=== PATIENT | male | born 1945 | race Hispanic/Latino ===

== ENCOUNTER 2016-12-29 21:15 | Inpatient (IN) | payer MEDICAID, SELFPAY ==
[2016-12-29 22:53] LABS: Sodium 139 mmol/L (135-148)
[2016-12-29 22:54] LABS: Mode SIMPLE MASK; Modified Allen's Test POSITIVE; Vent NO
[2016-12-29 22:58] LABS: PTT 30.6 SEC (22.9-36.1); Prothrombin Time 17.9 SEC (12.0-14.7)
[2016-12-29 23:07] LABS: Lactic Acid - Sepsis 1.1 mmol/L (0.5-2.2)
[2016-12-29 23:12] LABS: CK (CPK) 75 U/L (30-200); Lipase 13 U/L (8-78)
[2016-12-29] MEDS ORDERED: Piperacillin/Tazobactam 4.5 GM VIAL ONE (23:13)
[2016-12-29 23:16] LABS: Troponin I Less than 0.010 ng/mL (< 0.028)
[2016-12-29] MEDS ORDERED: Piperacillin/Tazobactam 4.5 GM in Sodium Chloride 0.9% 100 ML IVPB SCH (23:30)
[2016-12-29] MEDS ORDERED: Ondansetron HCl/PF 4 MG/2 ML Vial IVP PRN (23:32)
[2016-12-30] MEDS ORDERED: guaiFENesin 200 MG TAB PO PRN (00:01)
[2016-12-30] MEDS: Sodium Chloride 0.9% 1,000 ML IV SCH ×3 (01:09→18:29)
--- NOTE | 2016-12-30 01:15 | HP ---
DATE OF SERVICE: 12/29/2016 CHIEF COMPLAINT: Cough and fever. HISTORY OF PRESENT ILLNESS: A 71-year-old male with history of hypertension and hyperlipidemia who was transferred from [place] today for evaluation of cough and treatment of pneumonia. The pat ient stated that the last 4 days he has had cough and shortness of breath. The patient stated that today prior to going to the hospital, he had a fever and was having rigor and shaking chills. He qu it smoking 23 years ago. He denied any chest pain, no headache, dizziness, no loss of consciousness . His cough is productive of yellow sputum and had a little of nosebleed today. Prior to his trans carol, he had diagnostic study done which revealed that he has pneumonia in the right lobe of the lung . REVIEW OF SYSTEMS: Constitutional: Fever, chills, no night sweats or weight loss. Neurologic: No headache, dizziness or loss of consciousness. Respiratory system: Cough, productive of yellow spu annabella, and shortness of breath. Cardiovascular system: No chest pain. Gastrointestinal system: No nausea, vomiting, or diarrhea. Endocrine system: No polyuria, polydipsia, or polyphagia. Hematolo gy: No spontaneous bleeding or bruises. Genitourinary system: No dysuria, frequency or urgency. Musculoskeletal system: No joint swellings. The rest of review of system is negative. PAST MEDICAL HISTORY: Hypertension, hyperlipidemia, he has been taken of his antihypertensive medic ation by his PCP. PAST SURGICAL HISTORY: Has had no surgery. ALLERGIES: No known drug allergies. FAMILY HISTORY: Mother of [place] in her 70s. SOCIAL HISTORY: , quit smoking 23 years ago. Does not drink or use drugs. PHYSICAL EXAMINATION: GENERAL: Well-nourished, well-developed male in some respiratory distress. VITAL SIGNS: Blood pressure is 117/81, pulse of 102, respiratory rate of 18, temperature of 99.9, a nd saturating 89% to 91% on 4 liters. His T-max is actually 101.6, saturating 92% on 5 liters. HEENT: Normocephalic, atraumatic. Sclerae and conjunctivae are clear. Pupils are round, equal, an d reactive to light and accommodation. Extraocular muscles are intact. Oral mucous membrane is sobia st. No pharyngeal exudate. NECK: Supple. Trachea is midline. No jugular venous distention. LUNGS: Crackles at the bases and mid lobe of the right lung. Excursion symmetric. CARDIOVASCULAR: S1, S2 normal, no murmur. ABDOMEN: Soft, nontender. Bowel sounds are active. EXTREMITIES: With no pedal edema. Distal pulses are palpable. NEUROLOGIC: Alert, oriented x3, no cranial nerve deficit or focal deficit. LABORATORY DATA: Shows an ABG: pH of 7.4, pCO2 of 29, pO2 of 60. Coagulation profile: PT 17.9, I NR 1.4, PTT of 30.6. Cardiac troponin is less than 0.01 and BNP is 49. Hematology: White blood ce ll count is 15.8, hemoglobin 15.8, hematocrit 46, platelet of 247. Chemistry: Sodium 133, potassiu m 4.0, chloride 107, bicarbonate 17, BUN of 17, creatinine 1.32. LFTs normal. Chest x-ray: This c hronically an interstitial reticulonodular, parenchymal changes throughout both lungs, evidence of s ome extensive underlying chronic disease, multifocal with prominent interstitial and alveolar opacit y changes in the right mid lung zone compared to the prior study, raising concern for some degree of acute pneumonia or pneumonitis. ASSESSMENT: 1. Right mid lung pneumonia. 2. Acute hypoxic respiratory failure due to pneumonia. 3. Acute kidney injury. 4. History of hypertension. PLAN: 1. Admit the patient to medical/surgical floor. Start patient on IV antibiotics with ceftriaxone a nd azithromycin. 2. Start albuterol bronchodilator. 3. Supportive care with guaifenesin cough syrups and IV fluids with normal saline. Monitor BUN and creatinine with fluid resuscitation. Sent blood and respiratory cultures. Make adjustment to anti biotics as needed. 4. Deep venous thrombosis and gastrointestinal prophylaxis.
[2016-12-30] MEDS: cefTRIAXone\\ROCEPHIN 1 GM, Admixture Fee 1 EACH in Sodium Chloride 0.9% 100 ML IVPB SCH (01:33)
[2016-12-30] MEDS: Azithromycin 500 MG in Sodium Chloride 0.9% 250 ML 250 ML IVPB SCH (01:33)
[2016-12-30] MEDS ORDERED: guaiFENesin/Codeine Phosphate 200 mg/20 mg 10 ml UD Cup PO SCH (04:15)
[2016-12-30] MEDS: Enoxaparin Sodium 40 MG/0.4 ML SYRINGE SC SCH (06:12)
[2016-12-30 06:29] LABS: #Basophils 0.1 thou/uL (0.0-0.2); #Eosinphils 0.3 thou/uL (0.0-0.7); #Lymphocytes 2.3 thou/uL (1.20-3.40); #Monocytes 1.1 thou/uL (0.11-0.59); #Neutrophils 8.8 thou/uL (1.40-6.50); %Basophils 0.5 % (0.0-1.0); %Eosinophils 2.2 % (0.0-10.0); %Lymphocytes 18.6 % (21.0-51.0); %Monocytes 8.9 % (0.0-10.0); Hematocrit 40.9 % (42.0-52.0); Mean Platelet Volume 7.7 fL (7.4-10.4); Red Blood Cell (RBC) Count 4.39 mill/uL (4.70-6.10); White Blood Cell (WBC) Count 12.5 thou/uL (4.8-10.8)
[2016-12-30 07:02] LABS: Anion Gap 11 mmol/L (10-20); BUN (Urea Nitrogen) 14 mg/dL (8.4-25.7); Calc. Creatinine Clearance 75 mL/min (70-130); Calcium 7.9 mg/dL (7.8-10.44); Carbon Dioxide 21 mmol/L (23-31); Chloride 111 mmol/L (98-107); Estimated GFR-MDRD 69
--- NOTE | 2016-12-30 07:41 | PDOC.PN ---
- Subjective Encounter Start Date: 12/30/16 Encounter Start Time: 07:41 Subjective: and patient only speak arabic, he reports feeling better except -: cough and rt sided epistaxis - Objective MAR Reviewed: Yes Vital Signs & Weight: Vital Signs (12 hours) Temp Pulse Resp BP Pulse Ox 12/30/16 04:19 86 28 H 90 L 12/30/16 04:00 98.2 F 79 26 H 94/55 L 95 12/30/16 02:26 82 24 H 92 L 12/30/16 00:40 98.5 F 79 26 H 132/78 94 L 12/29/16 23:32 92 L Weight Weight 178 lb 8 oz I&O: 12/29/16 12/30/16 12/31/16 06:59 06:59 06:59 Intake Total 1130 Output Total 450 Balance 680 Result Diagrams: 12/30/16 06:04 12/30/16 06:04 Radiology Reviewed by me: Yes Phys Exam - Physical Examination Constitutional: NAD HEENT: PERRLA, moist MMs Neck: supple, full ROM diminshed throughout Cardiovascular: RRR Gastrointestinal: soft, non-tender Musculoskeletal: no edema Neurological: non-focal, moves all 4 limbs Psychiatric: normal affect, A&O x 3 Skin: no rash Dx/Plan (1) Community acquired pneumonia Code(s): J18.9 - PNEUMONIA, UNSPECIFIED ORGANISM Status: Acute (2) Hilar adenopathy Code(s): R59.0 - LOCALIZED ENLARGED LYMPH NODES Status: Chronic (3) Hypoxia Code(s): R09.02 - HYPOXEMIA Status: Chronic (4) Pulmonary nodules Status: Chronic - Plan cont current plan of care, continue antibiotics, respiratory therapy CHEST CT FROM SEPTEMBER C/W FIBROSIS, WILL OBTAIN PULMONARY CONSULT -: CONTINUE TX FOR CAP, FOLLOW RECCS PER PULMONARY. ANTITUSSIVES * .
[2016-12-30] MEDS: Benzonatate 100 MG CAP PO SCH ×3 (09:28→20:53)
[2016-12-30] MEDS: Famotidine 20 MG TAB PO SCH ×2 (09:28→20:53)
[2016-12-30] MEDS ORDERED: ISOVUE-370 76%-LOCM 1 ML ONE (14:00)
--- NOTE | 2016-12-30 14:02 | CON ---
DATE OF CONSULTATION: 12/30/2016 SERVICE: Pulmonary consultation. HISTORY OF PRESENT ILLNESS: This is a 71-year-old male, who came to the hospital with 4 da ys of increasing shortness of breath along with fever for the last 24 hours. He was seen in the [facility] in late September with an interstitial pneumonitis of some sort. He was discharged home and actual ly got better. He was supposed to come in for followup imaging, but never had that done. He has no previous history of lung disease to speak of. 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 PAST MEDICAL HISTORY: Hyperlipidemia and hypertension. PAST SURGICAL HISTORY: None. MEDICATIONS: See chart. SOCIAL HISTORY: Quit smoking many years ago. He does not consume alcohol. REVIEW OF SYSTEMS: Otherwise, negative. PHYSICAL EXAMINATION: VITAL SIGNS: O2 sat is in the low 90s on 50% oxygen, respiratory rate 18. HEENT: Unremarkable except for some nasal bleeding that has been present. Oropharynx is clear. NECK: No adenopathy, no JVD. He has some tenderness underneath the right mandibular area. LUNGS: He has inspiratory crackles from the midlung posteriorly down to the base. He also has crac kles heard anteriorly. CARDIOVASCULAR: S1, S2 regular, without murmur. ABDOMEN: Soft, nontender, and nondistended. EXTREMITIES: No clubbing, cyanosis, or edema. LABORATORY DATA: Notable for elevated total protein. His white blood cell count was not significan tly high. CT of the chest was reviewed. He has fairly extensive interstitial infiltrates bilateral ly with a great degree of honeycombing, but also some alveolar consolidation. He also has mediastin al lymphadenopathy. ASSESSMENT: Interstitial lung disease -- has progressed fairly markedly over the last 2 months. My differential diagnosis would be a rapidly progressive idiopathic pulmonary fibrosis, malignancy giv en the elevated total protein, or less likely an infection. RECOMMENDATIONS: 1. Continue antibiotics as you are doing. 2. Start IV steroids. 3. We will get Dr. Bhatia to see the patient tomorrow. I feel like the patient probably needs some type of biopsy procedure.
--- NOTE | 2016-12-30 18:26 | CT ---
CT ANGIO OF THE CHEST PERFORMED WITH INTRAVENOUS CONTRAST ENHANCEMENT WITH 3D RECONSTRUCTIONS: History: Shortness of breath. Comparison: 10-03-16 FINDINGS: There are severe emphysematous lung changes again demonstrated. Ground glass like opacity in both jose ng bases again demonstrated. These changes have progressed as compared to the prior examination, par ticularly worsening changes in the right lung, now extending more into the right upper lobe. There is marked adenopathy. This includes bilateral axillary lymphadenopathy as well as mediastinal and hilar lymphadenopathy. There is a mild overall increase in the size of the adenopathy by some of the prevascular nodes in the anterior mediastinum increased where they measured 8 mm on the prior e xam, they now measure in the 12 mm range. There has been increase in size of the subcarinal lymph no phil. There is good opacification. There is no CT evidence for pulmonary embolus. Thoracic aorta is normal in caliber. Visualized liver parenchyma shows no focal abnormalities. There is some peripancreatic and portal ly mph nodes and small lymph nodes in the gastric hepatic ligament regions, more numerous than typicall y seen. IMPRESSION: 1. No CT evidence for pulmonary embolus. 2. Ground glass opacity superimposed on a background of severe emphysematous change. These ground gl ass opacities worsened, particularly within the right lung. This would suggest the possibility that there is co-existent pneumonia or this could potentially be an atypical appearance of edema superimp osed on chronic lung change. POS: VANDANA
[2016-12-31] MEDS: cefTRIAXone\\ROCEPHIN 1 GM, Admixture Fee 1 EACH in Sodium Chloride 0.9% 100 ML IVPB SCH (00:36)
[2016-12-31] MEDS: Azithromycin 500 MG in Sodium Chloride 0.9% 250 ML 250 ML IVPB SCH (00:37)
[2016-12-31] MEDS: Sodium Chloride 0.9% 1,000 ML IV SCH ×2 (05:21→16:18)
[2016-12-31] MEDS: Enoxaparin Sodium 40 MG/0.4 ML SYRINGE SC SCH (05:21)
[2016-12-31 06:10] LABS: Hematocrit 38.9 % (42.0-52.0); Mean Platelet Volume 7.7 fL (7.4-10.4); Neutrophil 82 % (42-75); Reactive Lymphocytes 1 % (0-10); Red Blood Cell (RBC) Count 4.19 mill/uL (4.70-6.10); White Blood Cell (WBC) Count 9.4 thou/uL (4.8-10.8)
[2016-12-31] MEDS: Famotidine 20 MG TAB PO SCH ×2 (09:21→20:44)
[2016-12-31] MEDS: Benzonatate 100 MG CAP PO SCH ×3 (09:21→20:44)
--- NOTE | 2016-12-31 11:53 | PDOC.PN ---
- Subjective Encounter Start Date: 12/31/16 Encounter Start Time: 11:53 Subjective: in mosotho he reports feeling better. - Objective MAR Reviewed: Yes Vital Signs & Weight: Vital Signs (12 hours) Temp Pulse Resp BP BP BP Pulse Ox 12/31/16 10:57 94 L 12/31/16 10:54 61 20 94 L 12/31/16 07:15 97.2 F L 67 24 H 96/60 98 12/31/16 04:00 98 F 88 20 111/62 99 12/31/16 00:27 99 12/31/16 00:00 98 F 83 24 H 114/52 L 93 L Weight Weight 178 lb 8 oz I&O: 12/30/16 12/31/16 01/01/17 06:59 06:59 06:59 Intake Total 1130 Output Total 450 Balance 680 Result Diagrams: 12/31/16 04:57 12/30/16 06:04 Radiology Reviewed by me: Yes Phys Exam - Physical Examination Constitutional: NAD HEENT: PERRLA, moist MMs Neck: supple, full ROM crackles throughout Cardiovascular: RRR Gastrointestinal: soft, non-tender Musculoskeletal: no edema Neurological: non-focal, moves all 4 limbs Psychiatric: normal affect, A&O x 3 Skin: no rash Dx/Plan (1) Community acquired pneumonia Code(s): J18.9 - PNEUMONIA, UNSPECIFIED ORGANISM Status: Acute (2) Hilar adenopathy Code(s): R59.0 - LOCALIZED ENLARGED LYMPH NODES Status: Chronic (3) Hypoxia Code(s): R09.02 - HYPOXEMIA Status: Chronic (4) Pulmonary nodules Status: Chronic - Plan cont current plan of care, continue antibiotics, respiratory therapy, out of bed /ambulate case discussed with Features Editor. High Res CT or conservative mgt. -: Continue abx for CAP * .
--- NOTE | 2016-12-31 16:17 | PRG ---
DATE OF SERVICE: 12/31/2016 SUBJECTIVE: The patient is feeling better. PHYSICAL EXAMINATION: VITAL SIGNS: He is afebrile, heart rate 61, respiratory rate 20, oximetry is 94% on facemask O2, bl ood pressure 96/61. LUNGS: Remarkable for diffuse crackles. CARDIOVASCULAR: Regular rhythm. ABDOMEN: Soft. IMPRESSION: Interstitial lung disease ? usual interstitial pneumonitis, rapidly progressive. PLAN: High resolution CT. I have explained to the daughter by phone who will hopefully explain our plan about Mr. hSepherd. Biopsying areas that are suggestive of alveolitis might be an option to obta in a tissue diagnosis. Plan to discuss after the CT with Cardiothoracic Surgery.
--- NOTE | 2016-12-31 16:17 | CT ---
NONCONTRAST HIGH RESOLUTION CT THORAX: DATE: 12/31/16. HISTORY: Interstitial lung disease. COMPARISON: CT thorax on 10/03/16. FINDINGS: There are scattered areas of mixed central lobular and panlobular emphysematous changes greater in t he upper lobes and unchanged from prior exams. There are a few minimal areas of traction bronchiect asis present. There is significant motion artifact on both the supine and prone images. There are fluctuating dwaine und-glass densities seen noted on the lung bases which improve on prone imaging suggesting that the findings are likely attributable to atelectasis. There is a small nodular density seen within the r ight upper lobe adjacent to the pleura which was also seen on the prior study on 12/30/16 and may be related to a focal area of pleural thickening. This is also unchanged when compared to the study on 10/03/16. No subpleural lines or pleural effusion is seen. Again noted is increase in number of mediastinal l ymph nodes, some of which are enlarged, but these lymph nodes are increased in number. There is mil d increase in number of axillary lymph nodes as well. No other interval change. IMPRESSION: 1. Chronic obstructive pulmonary disease with minimal scattered areas of traction bronchiectasis. 2. Fluctuating ground-glass densities likely related to volume loss given improvement on prone imag ing compared to the supine images. 3. Mild chronic lung changes. 4. Lymphadenopathy better seen on CT angiogram of chest on 12/30/16. 5. Stable pleural-based nodular density along the minor fissure which may be related to focal area of nodular pleural thickening. POS: [facility]
[2016-12-31] MEDS: guaiFENesin/Codeine Phosphate 200 mg/20 mg 10 ml UD Cup PO PRN (20:44)
[2017-01-01] MEDS: cefTRIAXone\\ROCEPHIN 1 GM, Admixture Fee 1 EACH in Sodium Chloride 0.9% 100 ML IVPB SCH (01:06)
[2017-01-01] MEDS: Azithromycin 500 MG in Sodium Chloride 0.9% 250 ML 250 ML IVPB SCH (02:14)
[2017-01-01 05:51] LABS: #Lymphocytes 2.1 thou/uL (1.20-3.40); #Monocytes 0.8 thou/uL (0.11-0.59); #Neutrophils 14.2 thou/uL (1.40-6.50); %Basophils 0.2 % (0.0-1.0); %Eosinophils 0.1 % (0.0-10.0); %Lymphocytes 12.4 % (21.0-51.0); %Monocytes 4.7 % (0.0-10.0); Hematocrit 39.4 % (42.0-52.0); Mean Platelet Volume 7.7 fL (7.4-10.4); Red Blood Cell (RBC) Count 4.21 mill/uL (4.70-6.10); White Blood Cell (WBC) Count 17.2 thou/uL (4.8-10.8)
[2017-01-01] MEDS: guaiFENesin/Codeine Phosphate 200 mg/20 mg 10 ml UD Cup PO PRN ×2 (06:18→21:55)
[2017-01-01] MEDS: Benzonatate 100 MG CAP PO SCH ×3 (09:48→21:55)
[2017-01-01] MEDS: Famotidine 20 MG TAB PO SCH ×2 (09:48→21:55)
[2017-01-01] MEDS: Enoxaparin Sodium 40 MG/0.4 ML SYRINGE SC SCH (09:49)
--- NOTE | 2017-01-01 10:40 | PDOC.PN ---
- Subjective Encounter Start Date: 01/01/17 Encounter Start Time: 10:38 Subjective: feeling better, able to ambulate with o2 - Objective MAR Reviewed: Yes Vital Signs & Weight: Vital Signs (12 hours) Temp Pulse Resp BP Pulse Ox 01/01/17 08:00 96.3 F L 63 17 143/79 H 99 01/01/17 06:54 94 L 01/01/17 06:52 50 L 20 94 L 01/01/17 04:00 97.4 F L 62 18 127/79 97 01/01/17 03:36 100 01/01/17 02:18 60 20 96 01/01/17 00:00 97.7 F 68 18 109/65 97 Weight Weight 180 lb 1.6 oz I&O: 12/31/16 01/01/17 01/02/17 06:59 06:59 06:59 Intake Total 710 240 Output Total 500 Balance 210 240 Result Diagrams: 01/01/17 05:24 12/30/16 06:04 Phys Exam - Physical Examination Constitutional: NAD HEENT: PERRLA, moist MMs, sclera anicteric Neck: supple, full ROM crackles Cardiovascular: RRR Gastrointestinal: soft, non-tender Musculoskeletal: no edema, pulses present Neurological: moves all 4 limbs Psychiatric: normal affect, A&O x 3 Skin: no rash Dx/Plan (1) Community acquired pneumonia Code(s): J18.9 - PNEUMONIA, UNSPECIFIED ORGANISM Status: Acute (2) Hilar adenopathy Code(s): R59.0 - LOCALIZED ENLARGED LYMPH NODES Status: Chronic (3) Hypoxia Code(s): R09.02 - HYPOXEMIA Status: Chronic (4) Pulmonary nodules Status: Chronic - Plan cont current plan of care, continue antibiotics, respiratory therapy acute condition improved. Pulmonary to d/w surgeon and need for bx. * .
[2017-01-01] MEDS: Sodium Chloride 0.9% 1,000 ML IV SCH ×2 (12:12)
--- NOTE | 2017-01-01 21:31 | PRG ---
DATE OF SERVICE: 01/01/2017 SUBJECTIVE: Mr. Shepherd's high-res CT was reviewed. The interpretation is that this is consistent wi th COPD, but I reviewed the CAT scan twice and believe that there is alveolitis and not just atelect asis. I think a surgical lung biopsy is necessary in this situation given the 71 years of age. Cardiothoracic Surgery has been consulted. He says he is actually feeling better, which is similar to his hospitalization back in September. I discussed with CT Surgery as well.
--- NOTE | 2017-01-01 22:15 | CON ---
DATE OF CONSULTATION: 01/01/2017 HISTORY OF PRESENT ILLNESS: Mr. Shepherd is a 71-year-old gentleman, Slovak only speaking. He and his are here and I was able to communicate with them through his daughter on the telephone. He has a history of bilateral interstitial lung disease. He has been noncompliant with follow up with Dr. Bhatia. He is currently in the hospital short of breath. He had a CT scan performed, which shows bilateral patchy infiltrative disease with an underlying bullous component. I have been asked to see him to discuss thoracoscopic versus open lung biopsy. PAST MEDICAL HISTORY: 1. Hyperlipidemia. 2. Hypertension. PAST SURGICAL HISTORY: None. CURRENT MEDICATIONS: Noted. ALLERGIES: None. SOCIAL HISTORY: He quit smoking many years ago. He does not use alcohol. He lives with his . REVIEW OF SYSTEMS: Not performed due to language barrier. PHYSICAL EXAMINATION: GENERAL: This is a well-developed, well-nourished gentleman resting comfortably on a nonrebreather mask in bed. Oxygen flow rate is at 12 liters with a saturation of 99%. VITAL SIGNS: Temperature is 96.7, pulse is 79 and regular and blood pressure is 141/75. LUNGS: Have coarse breath sounds bilaterally. HEART: Rhythm is regular, without murmur. ABDOMEN: Soft and nontender. EXTREMITIES: No edema. ASSESSMENT AND PLAN: Bilateral infiltrative interstitial lung disease. I have discussed lung biopsy probably through a thoracotomy due to his oxygen dependence and inability to single lung ventilate during a thoracoscopic procedure. We will plan for . MADHURI
[2017-01-02] MEDS: cefTRIAXone\\ROCEPHIN 1 GM, Admixture Fee 1 EACH in Sodium Chloride 0.9% 100 ML IVPB SCH (02:15)
[2017-01-02] MEDS: Azithromycin 500 MG in Sodium Chloride 0.9% 250 ML 250 ML IVPB SCH (03:03)
[2017-01-02] MEDS: guaiFENesin/Codeine Phosphate 200 mg/20 mg 10 ml UD Cup PO PRN ×3 (03:15→22:13)
[2017-01-02 04:01] LABS: #Basophils 0.1 thou/uL (0.0-0.2); #Lymphocytes 2.4 thou/uL (1.20-3.40); #Monocytes 0.9 thou/uL (0.11-0.59); %Basophils 0.4 % (0.0-1.0); %Eosinophils 0.2 % (0.0-10.0); %Lymphocytes 14.6 % (21.0-51.0); %Monocytes 5.3 % (0.0-10.0); Hematocrit 38.1 % (42.0-52.0); Mean Platelet Volume 7.8 fL (7.4-10.4); White Blood Cell (WBC) Count 16.4 thou/uL (4.8-10.8)
[2017-01-02] MEDS: Sodium Chloride 0.9% 1,000 ML IV SCH ×3 (07:35→17:28)
--- NOTE | 2017-01-02 09:57 | PDOC.PN ---
- Subjective Encounter Start Date: 01/02/17 Encounter Start Time: 09:55 Subjective: NO NEW COMPLAINTS - Objective MAR Reviewed: Yes Vital Signs & Weight: Vital Signs (12 hours) Temp Pulse Resp BP BP Pulse Ox 01/02/17 07:38 97.2 F L 75 22 H 163/92 H 01/02/17 06:42 72 16 01/02/17 04:00 97.7 F 62 18 151/84 H 100 01/02/17 03:23 94 L 01/02/17 03:22 94 L 01/02/17 00:00 97.6 F 66 18 139/78 94 L 01/01/17 23:42 93 L Weight Weight 180 lb 1.6 oz I&O: 01/01/17 01/02/17 01/03/17 06:59 06:59 06:59 Intake Total 710 4160 Output Total 500 2000 Balance 210 2160 Result Diagrams: 01/02/17 03:04 12/30/16 06:04 Phys Exam - Physical Examination Constitutional: NAD HEENT: PERRLA, moist MMs VENTI MASK CRACKLES Cardiovascular: RRR Gastrointestinal: soft, non-tender Musculoskeletal: no edema Neurological: non-focal, moves all 4 limbs Psychiatric: normal affect, A&O x 3 Skin: no rash Dx/Plan (1) Community acquired pneumonia Code(s): J18.9 - PNEUMONIA, UNSPECIFIED ORGANISM Status: Acute (2) Hilar adenopathy Code(s): R59.0 - LOCALIZED ENLARGED LYMPH NODES Status: Chronic (3) Hypoxia Code(s): R09.02 - HYPOXEMIA Status: Chronic (4) Pulmonary nodules Status: Chronic - Plan cont current plan of care, continue antibiotics LUNG BIOPSY SATURDAY * .
[2017-01-02] MEDS: Famotidine 20 MG TAB PO SCH ×2 (09:58→22:13)
[2017-01-02] MEDS: Benzonatate 100 MG CAP PO SCH ×3 (09:58→22:13)
[2017-01-02] MEDS: Enoxaparin Sodium 40 MG/0.4 ML SYRINGE SC SCH (10:04)
--- NOTE | 2017-01-02 15:16 | PRG ---
DATE OF SERVICE: 01/02/2017 SUBJECTIVE: He is afebrile. PHYSICAL EXAMINATION: VITAL SIGNS: Heart rate in the 60s, respiratory rate is in 18, oximetry is 96%-100% on facemask O2, his blood pressure 137/79. Overall, there has been little change. LABORATORY DATA: White count 16.4, hemoglobin 13.1, platelets 250,000. Electrolytes were unremarka ble. ASSESSMENT AND PLAN: He is mildly hyperchloremic. He is tentatively on the schedule for surgical l anne-marie biopsy because of emergent heart cases today. His surgery will not be until tomorrow. We will continue with current care.
[2017-01-03] MEDS: cefTRIAXone\\ROCEPHIN 1 GM, Admixture Fee 1 EACH in Sodium Chloride 0.9% 100 ML IVPB SCH (00:52)
[2017-01-03] MEDS: Azithromycin 500 MG in Sodium Chloride 0.9% 250 ML 250 ML IVPB SCH (02:11)
[2017-01-03] MEDS: Sodium Chloride 0.9% 1,000 ML IV SCH ×2 (02:13→17:06)
[2017-01-03] MEDS ORDERED: Fentanyl 100 MCG/2 ML VIAL ONE ×4 (07:09→10:13)
[2017-01-03] MEDS ORDERED: Midazolam HCl 2 mg/2 ml Vial ONE (07:09)
[2017-01-03] MEDS ORDERED: Glycopyrrolate 0.2 MG/ML 5 ML SYRINGE ONE (07:55)
[2017-01-03] MEDS ORDERED: Dexamethasone 20 MG/5 ML VIAL ONE (07:55)
[2017-01-03] MEDS ORDERED: Lidocaine 2% PF 10 ML AMP (For Epidural Use) ONE (07:55)
[2017-01-03] MEDS ORDERED: Propofol 200 MG/20 ML VIAL ONE (07:55)
[2017-01-03] MEDS ORDERED: Vecuronium 10 MG VIAL ONE (07:55)
[2017-01-03] MEDS ORDERED: Ondansetron HCl/PF 4 MG/2 ML Vial ONE (07:55)
[2017-01-03] MEDS ORDERED: Bupivacaine HCl 0.5%/Epinephrine 1:200,000/PF 30 ml Vial ONE (08:05)
[2017-01-03] MEDS ORDERED: Propofol 1,000 MG/100 ML VIAL IV ONE (09:18)
[2017-01-03] MEDS ORDERED: Fentanyl 20 MCG/ML 250 ML ONE (09:18)
[2017-01-03] MEDS ORDERED: Lorazepam 2 MG/ML VIAL SLOW IVP PRN (09:28)
[2017-01-03] MEDS ORDERED: DISCONTINUE PREVIOUS NARCOTIC PAIN MEDICATIONS AND BENZODIAZEPINES FS SCH (09:28)
[2017-01-03] MEDS ORDERED: Morphine Sulfate 2 MG/ML SYRINGE SLOW IVP PRN (09:28)
[2017-01-03] MEDS ORDERED: Fentanyl 20 MCG/ML 250 ML IVPB SCH (09:28)
[2017-01-03 09:38] LABS: Oxyhemoglobin 93.6 % (94.0-97.0); Sodium 142 mmol/L (135-148)
[2017-01-03 09:59] LABS: Modified Allen's Test NOT DONE; Vent YES
[2017-01-03 10:00] LABS: Mechanical Tidal Volume 500 ml; Pressure Support 10 cmH2O
--- NOTE | 2017-01-03 10:43 | RAD ---
PORTABLE CHEST: HISTORY: Followup right thoracotomy. FINDINGS/IMPRESSION: Right chest tube is noted. There are bilateral confluent alveolar infiltrates. Diffuse bilateral i nterstitial prominence. Chronic interstitial and parenchymal changes have been described on prior C T. ET tube and NG tube remain in place. Recent CT also demonstrates diffuse mediastinal and hilar adenopathy which accounts for the hilar prominence seen on the chest x-ray. POS: GIRMAH
--- NOTE | 2017-01-03 11:53 | PDOC.PN ---
- Subjective Encounter Start Date: 01/03/17 Encounter Start Time: 11:51 -: non-verbal Subjective: intubated - Objective MAR Reviewed: Yes Vital Signs & Weight: Vital Signs (12 hours) Temp Pulse Resp BP BP Pulse Ox 01/03/17 11:38 62 114/68 01/03/17 11:36 61 14 99 01/03/17 10:58 99.2 F 01/03/17 09:10 81 129/68 01/03/17 04:15 99 01/03/17 04:00 98.0 F 68 22 H 151/86 H 99 01/03/17 03:11 94 L 01/03/17 03:10 18 94 L Weight Weight 174 lb 8 oz Most Recent Monitor Data Heart Rate from ECG 74 NIBP 90/65 NIBP BP-Mean 71 Respiration from ECG 16 SpO2 89 I&O: 01/02/17 01/03/17 01/04/17 06:59 06:59 06:59 Intake Total 4160 3468 Output Total 1999 1100 570 Balance 2160 2368 -570 Result Diagrams: 01/02/17 03:04 12/30/16 06:04 Phys Exam - Physical Examination sedated ett in place Respiratory: clear to auscultation bilateral Cardiovascular: RRR Gastrointestinal: soft, positive bowel sounds Musculoskeletal: no edema sedated Deviation from normal: sedated Dx/Plan (1) Community acquired pneumonia Code(s): J18.9 - PNEUMONIA, UNSPECIFIED ORGANISM Status: Acute (2) Hilar adenopathy Code(s): R59.0 - LOCALIZED ENLARGED LYMPH NODES Status: Chronic (3) Hypoxia Code(s): R09.02 - HYPOXEMIA Status: Chronic (4) Pulmonary nodules Status: Chronic - Plan cont current plan of care, continue antibiotics abg results noted. pt s/p bx now intubate -: will defer to pulmonary and ct surgery for post op care. * .
--- NOTE | 2017-01-03 12:48 | OP ---
DATE OF PROCEDURE: 01/03/2017 PREOPERATIVE DIAGNOSIS: Bilateral interstitial lung disease. POSTOPERATIVE DIAGNOSIS: Bilateral interstitial lung disease. PROCEDURE: Right mini thoracotomy with wedge biopsy of right upper lobe and wedge biopsy of right m iddle lobe. SPECIMENS: Right middle lobe and right upper lobe wedge specimens. DRAINS: 28 [place] Island[place] chest tube x1. ANESTHESIA: General endotracheal -- Dr. Regis Garcia. SURGEON: Dr. Alec Duckworth PROCEDURE IN DETAIL: After operative consent was obtained, the patient was brought to the operating room and placed in the supine position on the operating room table. Appropriate anesthetic monitor was placed and general endotracheal anesthesia induced. The patient was bumped up with his right s lisandro up. Chest was prepped and draped in usual sterile fashion. A small submammary incision was mad e and dissection through the pericostal space obtained with electrocautery. The pleura was entered. The right upper lobe was grasped and a wedge specimen stapled. Right middle lobe was grasped and a wedge specimen was stapled. Hemostasis was good. Wounds were closed in layers and Dermabond appl ied to the skin. A 28 [place] Island[place] chest tube had been placed prior to closure. Sterile dressings were a pplied. The patient was awakened, extubated, and transferred to the recovery room in stable conditi on.
[2017-01-03] MEDS: Enoxaparin Sodium 40 MG/0.4 ML SYRINGE SC SCH (13:28)
[2017-01-03] MEDS: Benzonatate 100 MG CAP PO SCH ×4 (13:28→20:33)
[2017-01-03] MEDS: Famotidine 20 MG TAB PO SCH ×2 (13:29→20:29)
--- NOTE | 2017-01-03 19:59 | PRG ---
DATE OF SERVICE: 01/03/2017 SUBJECTIVE: Mr. Shepherd underwent a surgical lung biopsy today. He remains mechanically ventilated n ot surprisingly. OBJECTIVE: VITAL SIGNS: Heart rate 64, blood pressure 94/56, respiratory rate is in teens. LUNGS: Remarkable for crackles bilaterally. HEART: Regular rhythm. ABDOMEN: Soft. LABORATORY: White count 16.4, hemoglobin 13.1, platelets 250. Sodium 139, potassium 3.8, chloride 111, bicarbonate 21, BUN 14, creatinine 1.06. Postop pH 7.21, CO2 62, pO2 87. His ventilatory volu mes were increased. His PEEP has been increased to 10. IMPRESSION: Postop mechanical ventilation after a surgical lung biopsy for interstitial lung diseas e. PLAN: Weaning as tolerated. Continue other medications.
[2017-01-03] MEDS: Propofol 1,000 MG/100 ML VIAL IV PRN (20:28)
[2017-01-04] MEDS: Sodium Chloride 0.9% 1,000 ML IV SCH ×3 (00:47→18:14)
[2017-01-04] MEDS: cefTRIAXone\\ROCEPHIN 1 GM, Admixture Fee 1 EACH in Sodium Chloride 0.9% 100 ML IVPB SCH (00:48)
[2017-01-04] MEDS: Azithromycin 500 MG in Sodium Chloride 0.9% 250 ML 250 ML IVPB SCH (02:22)
[2017-01-04 08:05] LABS: Sodium 143 mmol/L (135-148)
[2017-01-04 08:06] LABS: Mechanical Tidal Volume 600 ml; Mode SIMV.PSV; Modified Allen's Test NOT DONE; Pressure Support 10 cmH2O; Vent YES
[2017-01-04] MEDS: Benzonatate 100 MG CAP PO SCH (08:41)
[2017-01-04] MEDS: Enoxaparin Sodium 40 MG/0.4 ML SYRINGE SC SCH (09:40)
[2017-01-04] MEDS: Propofol 1,000 MG/100 ML VIAL IV PRN ×3 (09:41→23:30)
[2017-01-04] MEDS: Famotidine 20 MG TAB PO SCH (09:47)
--- NOTE | 2017-01-04 09:47 | PDOC.PN ---
- Subjective Encounter Start Date: 01/04/17 Encounter Start Time: 09:45 Subjective: Intubated/Sedated -: No fever this AM - Objective MAR Reviewed: Yes Vital Signs & Weight: Vital Signs (12 hours) Temp Pulse Resp BP Pulse Ox 01/04/17 08:00 20 01/04/17 07:53 56 L 129/74 01/04/17 07:50 55 L 14 99 01/04/17 07:00 99.9 F H 01/04/17 06:00 14 01/04/17 04:00 14 01/04/17 03:00 99.7 F H 01/04/17 02:00 14 01/04/17 01:57 58 L 105/68 01/04/17 00:00 14 01/03/17 23:00 98.6 F 01/03/17 22:02 67 101/68 01/03/17 22:00 14 Weight Weight 174 lb 8 oz Most Recent Monitor Data Heart Rate from ECG 69 NIBP 115/70 NIBP BP-Mean 89 Respiration from ECG 27 SpO2 100 I&O: 01/03/17 01/04/17 01/05/17 06:59 06:59 06:59 Intake Total 3468 1520 Output Total 1100 1795 275 Balance 8270 -275 -149 Result Diagrams: 01/02/17 03:04 12/30/16 06:04 Phys Exam - Physical Examination Constitutional: NAD HEENT: moist MMs, sclera anicteric Neck: no nodes, no JVD diminished at bases Cardiovascular: no significant murmur, no rub Gastrointestinal: soft, non-tender, positive bowel sounds unable to assess Deviation from normal: unable to assess Skin: no rash, normal turgor Dx/Plan (1) Community acquired pneumonia Code(s): J18.9 - PNEUMONIA, UNSPECIFIED ORGANISM Status: Acute (2) Hilar adenopathy Code(s): R59.0 - LOCALIZED ENLARGED LYMPH NODES Status: Chronic (3) Hypoxia Code(s): R09.02 - HYPOXEMIA Status: Chronic (4) Pulmonary nodules Status: Chronic - Plan * Post-OP Resp failure s/p Lung Bx for Interstitial lung dz: appreciate pulm and CT surgery for post-op care, remains on mechanical vent (sedated) * Leukocytosis 2/2 PNA: Continue abx, check WBC in AM
--- NOTE | 2017-01-04 09:52 | RAD ---
CHEST ONE VIEW: HISTORY: Status post thoracotomy. COMPARISON: 01/03/2017 FINDINGS: Interval placement of endotracheal and nasogastric tubes. Repositioning of right-sided chest tube. Small right apical pneumothorax cannot be excluded. There is subcutaneous emphysema in the right h emithorax, as well as in the left hemithorax, which has developed since the prior exam. There are c hronic changes in the lung parenchyma. No left-sided pneumothorax. Normal cardiac silhouette. IMPRESSION: 1. Small right apical pneumothorax. Right-sided chest tube is in place. 2. Extensive subcutaneous emphysema throughout the chest. CODE T POS: [facility]
[2017-01-04] MEDS ORDERED: Furosemide 40 MG/4 ML VIAL IVP SCH (11:40)
--- NOTE | 2017-01-04 12:21 | PRG ---
DATE OF SERVICE: 01/04/2017 Mr. Shepherd is sedated for ventilation. His hemodynamics have been stable overnight. PHYSICAL EXAMINATION: VITAL SIGNS: His heart rate is in the 50s, blood pressure 122/65, respiratory rate 14, oximetry is 99. LUNGS: Lungs are remarkable for crackles. HEART: Regular rhythm. ABDOMEN: Soft. LABORATORY DATA: White count 16.4, hemoglobin 13.1, platelets 250. Electrolytes are unremarkable. Creatinine is normal. IMPRESSION: Probable pulmonary fibrosis/usual interstitial pneumonitis. Because the radiograph is not classically diagnostic of this. I have recommended a surgical lung biopsy which has been done. He remains mechanically ventilated. Probably will have to just slowly decrease his mechanical vent ilation. Biopsies are pending.
--- NOTE | 2017-01-04 14:18 | PRG ---
DATE OF SERVICE: 01/04/2017 Slightly negative fluid balance for the last 24 hours, but 2 days before it is 4500 mL approximately positive fluid balance. So, he may benefit from more diuresis to facilitate weaning. I met with t he and answered all of her questions.
[2017-01-04] MEDS: Famotidine/PF 20 mg/2ml Vial IVPB SCH (20:38)
[2017-01-05] MEDS: cefTRIAXone\\ROCEPHIN 1 GM, Admixture Fee 1 EACH in Sodium Chloride 0.9% 100 ML IVPB SCH (01:10)
[2017-01-05] MEDS: Azithromycin 500 MG in Sodium Chloride 0.9% 250 ML 250 ML IVPB SCH (01:11)
[2017-01-05 04:08] LABS: #Lymphocytes 1.8 thou/uL (1.20-3.40); #Monocytes 0.8 thou/uL (0.11-0.59); #Neutrophils 9.3 thou/uL (1.40-6.50); %Basophils 0.2 % (0.0-1.0); %Eosinophils 0.2 % (0.0-10.0); %Lymphocytes 14.7 % (21.0-51.0); %Monocytes 6.6 % (0.0-10.0); Hematocrit 39.5 % (42.0-52.0); Mean Platelet Volume 6.9 fL (7.4-10.4); Red Blood Cell (RBC) Count 4.24 mill/uL (4.70-6.10); White Blood Cell (WBC) Count 11.9 thou/uL (4.8-10.8)
[2017-01-05 04:26] LABS: Anion Gap 10 mmol/L (10-20); BUN (Urea Nitrogen) 28 mg/dL (8.4-25.7); Calc. Creatinine Clearance 99 mL/min (70-130); Calcium 7.6 mg/dL (7.8-10.44); Carbon Dioxide 25 mmol/L (23-31); Chloride 110 mmol/L (98-107); Estimated GFR-MDRD Greater than 90
[2017-01-05] MEDS: Sodium Chloride 0.9% 1,000 ML IV SCH ×2 (05:28→14:19)
[2017-01-05] MEDS: Propofol 1,000 MG/100 ML VIAL IV PRN ×3 (05:34→20:38)
[2017-01-05] MEDS: Enoxaparin Sodium 40 MG/0.4 ML SYRINGE SC SCH (08:13)
[2017-01-05] MEDS: Furosemide 40 MG/4 ML VIAL IVP SCH (08:13)
[2017-01-05] MEDS: Famotidine/PF 20 mg/2ml Vial IVPB SCH ×2 (08:13→20:37)
--- NOTE | 2017-01-05 09:27 | RAD ---
FRONTAL VIEW CHEST: COMPARISON: Previous day. INDICATION: Status post right thoracotomy. FINDINGS: There is extensive soft tissue emphysema again seen. The previous endotracheal and nasogastric tube s remain. Right chest tube is again seen terminating at the right mid hemithorax. Interval decreas ed conspicuity of the prior mild right apical pneumothorax. Minimal residua is present. There is d iffuse interstitial and alveolar prominence of the lungs. Numerous extrinsic artifacts limit detail . IMPRESSION: 1. Improved, minimal right apical pneumothorax. 2. Diffuse alveolar and interstitial opacities. 3. Persistence of significant soft tissue emphysema. POS: [facility]
--- NOTE | 2017-01-05 09:27 | PDOC.PN ---
- Subjective Encounter Start Date: 01/05/17 Encounter Start Time: 09:27 Subjective: No overnight issues -: Intubated/sedated - Objective MAR Reviewed: Yes Vital Signs & Weight: Vital Signs (12 hours) Temp Pulse Resp BP Pulse Ox 01/05/17 08:00 11 L 01/05/17 06:48 49 L 162/81 H 01/05/17 06:46 48 L 14 99 01/05/17 06:00 14 01/05/17 04:00 99.2 F 14 01/05/17 02:58 53 L 14 100 01/05/17 02:00 14 01/05/17 00:00 14 01/04/17 23:00 99.3 F 01/04/17 22:58 53 L 14 100 01/04/17 22:00 14 Weight Admit Weight 178 lb 8 oz Weight 175 lb 0.752 oz Most Recent Monitor Data Heart Rate from ECG 56 NIBP 112/74 NIBP BP-Mean 82 Respiration from ECG 13 SpO2 98 I&O: 01/04/17 01/05/17 01/06/17 06:59 06:59 06:59 Intake Total 1520 2854 Output Total 6869 8465 1185 Balance -275 -891 -1185 Result Diagrams: 01/05/17 03:56 01/05/17 03:56 Phys Exam - Physical Examination Constitutional: NAD HEENT: moist MMs, sclera anicteric Neck: no nodes, no JVD Respiratory: wheezing present crackles at b/l bases Cardiovascular: RRR, no significant murmur, no rub Gastrointestinal: soft, non-tender, positive bowel sounds Lymphatic: no nodes Deviation from normal: unable to assess Skin: no rash, normal turgor Dx/Plan (1) Community acquired pneumonia Code(s): J18.9 - PNEUMONIA, UNSPECIFIED ORGANISM Status: Acute (2) Hilar adenopathy Code(s): R59.0 - LOCALIZED ENLARGED LYMPH NODES Status: Chronic (3) Hypoxia Code(s): R09.02 - HYPOXEMIA Status: Chronic (4) Pulmonary nodules Status: Chronic - Plan * Post-OP Resp failure s/p Lung Bx for Interstitial lung dz: appreciate pulm and CT surgery for post-op care, remains on mechanical vent (sedated) * Leukocytosis 2/2 PNA: Continue abx, check WBC in AM
[2017-01-05] MEDS ORDERED: Sodium Chloride 0.9% 1,000 ML IV SCH (16:59)
--- NOTE | 2017-01-05 19:39 | PRG ---
DATE OF SERVICE: 01/05/2017 SERVICE: Pulmonary Medicine. INTERVAL HISTORY: The patient is doing great from a respiratory standpoint. Oxygen requirements are coming down. He still has a significantly prolonged expiratory phase. He was heavily sedated overnight. He is still trying to wake up from that. There were no events otherwise. PHYSICAL EXAMINATION: VITAL SIGNS: Afebrile with a T-max of 99.9, pulse 77, blood pressure 162/87, respirations 17, saturation 93% on 25% FiO2. GENERAL: The patient is awake and alert, in no apparent distress. LUNGS: Decent air entry. Crackles are present. There is a prolonged expiratory phase with wheezing. HEART: Normal rate, regular. ABDOMEN: Soft, nontender, nondistended. Bowel sounds positive. MUSCULOSKELETAL: No cyanosis or clubbing. There is no pitting in the bilateral lower extremities. NEUROLOGIC: Grossly nonfocal. LABORATORY DATA: WBC 11.9, hemoglobin 13.3, platelets 263,000. INR 1.4. Basic metabolic profile is unremarkable/stable. Cardiac enzymes were previously unremarkable. Lipase, BNP, CK, and lactate were also unremarkable. Respiratory culture and blood cultures x2 are negative to date. IMAGING: Chest x-ray demonstrates improved minimal right apical pneumothorax. Diffuse alveolar and interstitial opacities. Persistence of soft tissue emphysema. ASSESSMENT: 1. Acute on chronic hypoxic respiratory failure. 2. Pulmonary fibrosis with ground glass opacifications. 3. Mediastinal lymphadenopathy. PLAN: We are awaiting pathology results. We will continue to diurese the patient as much as tolerated prior to extubating him. We will repeat his spontaneous breathing trial tomorrow morning, and if he tolerates it a touch better, this will be considered. IV fluids will be interrupted. Critical care time: 30 minutes. MTDD
[2017-01-06] MEDS: Propofol 1,000 MG/100 ML VIAL IV PRN ×2 (00:39→05:28)
[2017-01-06] MEDS: cefTRIAXone\\ROCEPHIN 1 GM, Admixture Fee 1 EACH in Sodium Chloride 0.9% 100 ML IVPB SCH (00:39)
[2017-01-06] MEDS: Azithromycin 500 MG in Sodium Chloride 0.9% 250 ML 250 ML IVPB SCH (01:10)
[2017-01-06 04:53] LABS: #Lymphocytes 2.4 thou/uL (1.20-3.40); #Monocytes 1.9 thou/uL (0.11-0.59); #Neutrophils 11.2 thou/uL (1.40-6.50); %Basophils 0.1 % (0.0-1.0); %Eosinophils 0.2 % (0.0-10.0); %Lymphocytes 15.4 % (21.0-51.0); %Monocytes 12.3 % (0.0-10.0); Hematocrit 42.2 % (42.0-52.0); Mean Platelet Volume 6.9 fL (7.4-10.4); Red Blood Cell (RBC) Count 4.56 mill/uL (4.70-6.10); White Blood Cell (WBC) Count 15.6 thou/uL (4.8-10.8)
[2017-01-06 05:14] LABS: Anion Gap 10 mmol/L (10-20); BUN (Urea Nitrogen) 33 mg/dL (8.4-25.7); Calc. Creatinine Clearance 106 mL/min (70-130); Calcium 7.8 mg/dL (7.8-10.44); Carbon Dioxide 27 mmol/L (23-31); Chloride 107 mmol/L (98-107); Estimated GFR-MDRD Greater than 90
[2017-01-06] MEDS: Enoxaparin Sodium 40 MG/0.4 ML SYRINGE SC SCH (08:08)
[2017-01-06] MEDS: Famotidine/PF 20 mg/2ml Vial IVPB SCH ×2 (08:08→19:40)
[2017-01-06] MEDS: Furosemide 40 MG/4 ML VIAL IVP SCH (08:08)
--- NOTE | 2017-01-06 08:35 | PDOC.PN ---
- Subjective Encounter Start Date: 01/06/17 Encounter Start Time: 08:33 Subjective: Intubated/awake/alert - on SBT currently with vent - Objective MAR Reviewed: Yes Vital Signs & Weight: Vital Signs (12 hours) Temp Pulse Resp BP Pulse Ox 01/06/17 08:00 15 01/06/17 07:00 99.3 F 01/06/17 06:40 78 124/88 01/06/17 06:36 58 L 14 92 L 01/06/17 06:00 16 01/06/17 04:00 15 01/06/17 03:00 99 F 01/06/17 02:31 64 19 97 01/06/17 02:00 14 01/06/17 00:00 15 01/05/17 23:00 98.6 F 01/05/17 22:48 65 01/05/17 22:47 65 13 92 L 01/05/17 22:00 14 Weight Admit Weight 178 lb 8 oz Weight 172 lb 13.478 oz Most Recent Monitor Data Heart Rate from ECG 86 NIBP 95/83 NIBP BP-Mean 91 Respiration from ECG 19 SpO2 95 I&O: 01/05/17 01/06/17 01/07/17 06:59 06:59 06:59 Intake Total 2854 3887 Output Total 2979 4290 535 [facility]891 -1793 -240 Result Diagrams: 01/06/17 03:46 01/06/17 03:46 Phys Exam - Physical Examination Constitutional: NAD HEENT: moist MMs, sclera anicteric Neck: no nodes, no JVD Respiratory: clear to auscultation bilateral SBT trial Cardiovascular: no significant murmur, no rub Gastrointestinal: soft, non-tender, positive bowel sounds Neurological: non-focal Deviation from normal: unable to assess Skin: no rash, normal turgor Dx/Plan (1) Community acquired pneumonia Code(s): J18.9 - PNEUMONIA, UNSPECIFIED ORGANISM Status: Acute (2) Hilar adenopathy Code(s): R59.0 - LOCALIZED ENLARGED LYMPH NODES Status: Chronic (3) Hypoxia Code(s): R09.02 - HYPOXEMIA Status: Chronic (4) Pulmonary nodules Status: Chronic - Plan * Post-OP Resp failure s/p Lung Bx for Interstitial lung dz: appreciate pulm and CT surgery for post-op care, remains on mechanical vent - plans for extubation today * Leukocytosis (worse today) 2/2 PNA: Continue abx, check WBC in AM
--- NOTE | 2017-01-06 08:54 | RAD ---
FRONTAL VIEW CHEST: COMPARISON: Previous day. INDICATION: Status post right thoracotomy, followup. FINDINGS: Extensive soft tissue emphysema remains. Endotracheal and enteric catheters are again seen. Diffus e alveolar and interstitial opacities of each lung are redemonstrated. Numerous artifacts limit det ail. Stable right-side chest tube. No definite intimal change appreciated. IMPRESSION: 1. Stable chest with extensive soft tissue emphysema and diffuse bilateral interstitial and alveola r opacities. 2. No significant pneumothorax identified within limitations. POS: [facility]
--- NOTE | 2017-01-06 12:27 | PRG ---
DATE OF SERVICE: 01/06/2017 SERVICE: Pulmonary Medicine. INTERVAL HISTORY: The patient is doing fine from a cardiovascular and respiratory standpoint. He i s on much less oxygen this morning. He is breathing comfortably on a sedation holiday. He is awake and alert. He is very cooperative and has no specific complaints. PHYSICAL EXAMINATION: VITAL SIGNS: Afebrile, pulse 79, blood pressure 125/89, respirations 15, saturation 100% on 27% FiO 2. HEENT: Normocephalic, atraumatic. Sclerae are white, conjunctivae pink. Oral and nasal mucosa is moist without lesions. LUNGS: Decent air entry. Crackles are present. There is prolonged expiratory phase. I do not elvin reciate wheezing or rhonchi today. HEART: Normal rate, regular. ABDOMEN: Soft, nontender, nondistended. Bowel sounds positive. MUSCULOSKELETAL: No cyanosis or clubbing. No pitting in the bilateral lower extremities. NEUROLOGIC: Grossly nonfocal. LABORATORY DATA: WBC 15.6, hemoglobin 14.0, platelets 284,000. Neutrophil count has improved. INR 1.4. Basic metabolic profile is essentially unremarkable except for potassium of 3.3. BUN 33, bic arbonate 27. Blood cultures x2 are unremarkable. Respiratory culture was growing moderate gram pos itive cocci in pairs and chains as well as other things. IMAGING: Chest x-ray demonstrates a stable chest with extensive interstitial and emphysematous lung changes. Bilateral patchy alveolar infiltrates are present. There is extensive subcutaneous air o n the right. ASSESSMENT: 1. Acute on chronic hypoxic respiratory failure. 2. Pulmonary fibrosis with ground-glass opacifications. 3. Chronic obstructive pulmonary disease, possible. 4. Mediastinal lymphadenopathy. PLAN: The patient is on a spontaneous breathing trial. If he meets criteria, extubation will be co nsidered. We are awaiting the pathophysiology results on his open lung biopsy. I have updated the family at bedside today. Pulmonary Critical Care will continue to follow. CRITICAL CARE TIME: 30 minutes.
--- NOTE | 2017-01-06 13:21 | RAD ---
FRONTAL VIEW CHEST: COMPARISON: Early same day. CLINICAL HISTORY: Respiratory distress. FINDINGS: Removal of prior endotracheal and nasogastric tubes. Right thoracostomy tube remains. Extensive so ft tissue emphysema redemonstrated. There is persistent prominent patchy density of the mid to lowe r right hemithorax. Interstitial prominence at the left lower lung zone remains. Otherwise, no add itional significant interval detrimental change. IMPRESSION: 1. Interval extubation. 2. Persistence of prominent subcutaneous/soft tissue emphysema regionally. 3. Persistent alveolar and interstitial opacities of the mid to lower lung zones. POS: [facility]
[2017-01-06] MEDS ORDERED: Haloperidol Lactate 5 MG/ML VIAL ONE (13:37)
[2017-01-06] MEDS: Potassium Chloride 40 MEQ in Sodium Chloride 0.9% 500 ML IVPB SCH ×2 (14:31→19:39)
[2017-01-06] MEDS ORDERED: Haloperidol Lactate 5 MG/ML VIAL IM PRN (17:43)
[2017-01-07 05:29] LABS: Anion Gap 14 mmol/L (10-20); BUN (Urea Nitrogen) 22 mg/dL (8.4-25.7); Calc. Creatinine Clearance 119 mL/min (70-130); Calcium 8.3 mg/dL (7.8-10.44); Carbon Dioxide 25 mmol/L (23-31); Chloride 102 mmol/L (98-107); Estimated GFR-MDRD Greater than 90
[2017-01-07] MEDS ORDERED: CCU ELECTROLYTE REPLACEMENT PROTOCOL FS PRN (05:41)
[2017-01-07] MEDS ORDERED: Magnesium 2 GM/NS 0.9% 100 ML 2 GM in Premix Bag 1 BAG IVPB PRN (05:41)
[2017-01-07] MEDS ORDERED: Potassium Phosphate 15 MMOL in Sodium Chloride 0.9% 250 ML 250 ML IV PRN (05:41)
[2017-01-07] MEDS ORDERED: Magnesium Oxide 400 MG TAB PO PRN ×2 (05:41)
[2017-01-07] MEDS ORDERED: Potassium Phosphate 12 MMOL in Sodium Chloride 0.9% 250 ML 250 ML IV PRN (05:41)
[2017-01-07] MEDS ORDERED: Potassium Chloride 40 MEQ in Premix Bag 1 BAG IVPB PRN (05:41)
[2017-01-07] MEDS ORDERED: Potassium Chloride 20 MEQ TAB PO PRN (05:41)
[2017-01-07] MEDS ORDERED: Potassium Phosphate 9 MMOL in Sodium Chloride 0.9% 100 ML IVPB PRN (05:41)
[2017-01-07 05:44] LABS: Hematocrit 49.1 % (42.0-52.0); Mean Platelet Volume 6.8 fL (7.4-10.4); Neutrophil 81 % (42-75); Red Blood Cell (RBC) Count 5.35 mill/uL (4.70-6.10); White Blood Cell (WBC) Count 20.1 thou/uL (4.8-10.8)
[2017-01-07] MEDS: Potassium Chloride 40 MEQ in Sodium Chloride 0.9% 250 ML 250 ML IVPB PRN (06:12)
[2017-01-07] MEDS: Furosemide 40 MG/4 ML VIAL IVP SCH (07:47)
[2017-01-07] MEDS: Famotidine/PF 20 mg/2ml Vial IVPB SCH ×2 (07:51→20:07)
[2017-01-07] MEDS: Enoxaparin Sodium 40 MG/0.4 ML SYRINGE SC SCH (07:52)
--- NOTE | 2017-01-07 10:23 | RAD ---
PORTABLE AP CHEST X-RAY: 01/07/2017 HISTORY: Post right thoracotomy. COMPARISON: 01/06/2017 FINDINGS: A right-sided thoracostomy tube remains in place. No pneumothorax is visualized. Subcutaneous emph ysema is again seen about the chest, laterally, on the right, but has improved from the prior study. Interstitial and alveolar opacities are again seen at the right lung base with stable interstitial densities at the left lung base. IMPRESSION: Stable chest, aside from improvement in subcutaneous emphysema. POS: [facility]
--- NOTE | 2017-01-07 14:20 | PDOC.PN ---
- Subjective Encounter Start Date: 01/07/17 Encounter Start Time: 14:18 Subjective: confused - Objective MAR Reviewed: Yes Vital Signs & Weight: Vital Signs (12 hours) Temp Pulse Resp Pulse Ox 01/07/17 14:00 98.2 F 01/07/17 13:00 22 H 01/07/17 11:26 95 28 H 99 01/07/17 11:00 98.6 F 23 H 01/07/17 10:00 24 H 01/07/17 09:00 22 H 01/07/17 08:00 97.9 F 86 25 H 98 01/07/17 07:20 99 01/07/17 07:19 86 25 H 99 01/07/17 07:00 97.9 F 01/07/17 04:00 98.6 F 01/07/17 02:39 99 Weight Admit Weight 178 lb 8 oz Weight 172 lb 13.478 oz Most Recent Monitor Data Heart Rate from ECG 106 NIBP 134/106 NIBP BP-Mean 116 Respiration from ECG 21 SpO2 97 I&O: 01/06/17 01/07/17 01/08/17 06:59 06:59 06:59 Intake Total 2497 1392 250 Output Total 4290 4465 1660 Balance -3593 -3073 -1410 Result Diagrams: 01/07/17 03:55 01/07/17 03:55 Phys Exam - Physical Examination Constitutional: NAD Neck: no JVD fine rales, chest tube in place Cardiovascular: RRR, no significant murmur Gastrointestinal: soft, non-tender, positive bowel sounds Musculoskeletal: no edema Dx/Plan (1) Acute and chronic respiratory failure Code(s): J96.20 - ACUTE AND CHR RESP FAILURE, UNSP W HYPOXIA OR HYPERCAPNIA Status: Acute Qualifiers: Respiratory failure complication: unspecified whether with hypoxia or hypercapnia Qualified Code(s): J96.20 - Acute and chronic respiratory failure , unspecified whether with hypoxia or hypercapnia (2) Pulmonary fibrosis Code(s): J84.10 - PULMONARY FIBROSIS, UNSPECIFIED Status: Acute (3) HTN (hypertension) Code(s): I10 - ESSENTIAL (PRIMARY) HYPERTENSION Status: Acute Qualifiers: Hypertension type: essential hypertension Qualified Code(s): I10 - Essential (primary) hypertension (4) Dyslipidemia Code(s): E78.5 - HYPERLIPIDEMIA, UNSPECIFIED Status: Chronic (5) Leukocytosis Code(s): D72.829 - ELEVATED WHITE BLOOD CELL COUNT, UNSPECIFIED Status: Acute Qualifiers: Leukocytosis type: other Qualified Code(s): D72.828 - Other elevated white blood cell count Comment: secondary to high dose steroids - Plan cont iv steroids -: cont nebs -: replace K+ -: discuss with intesivist * .
--- NOTE | 2017-01-07 16:46 | RAD ---
ABDOMEN ONE VIEW: History: Dobbhoff tube placement. FINDINGS/IMPRESSION: A feeding tube is present with radiopaque tip to the right of midline in the projection of the proxi mal duodenum. There are degenerative changes in the spine. The bowel gas pattern is unremarkable. Th ere is fecal material in the right colon. POS: [facility]
--- NOTE | 2017-01-07 19:19 | PRG ---
DATE OF SERVICE: 01/07/2017 SUBJECTIVE: Mr. Shepherd was extubated over the weekend. He is doing well although he is not swallowi ng well. PHYSICAL EXAMINATION: VITAL SIGNS: He is afebrile, heart rate 106, blood pressure 134/106, respiratory rate is in 20s. LUNGS: Remarkable for crackles at his bases. HEART: Regular rhythm. ABDOMEN: Soft. LABORATORY DATA: White count 20.1, hemoglobin 16.7, platelets 333,000. Sodium 138, potassium 2.9, chloride 102, bicarbonate 25, BUN 22, creatinine 0.6. IMPRESSION: Interstitial lung disease with surgical lung biopsy showing interstitial inflammation, but no malignancy. PLAN: Second opinion at [place] with the CT to go with the patient would be the best option, and a bhoff tube will be placed.
[2017-01-08 05:48] LABS: #Lymphocytes 2.8 thou/uL (1.20-3.40); #Monocytes 2.5 thou/uL (0.11-0.59); #Neutrophils 16.8 thou/uL (1.40-6.50); %Basophils 0.1 % (0.0-1.0); %Eosinophils 0.1 % (0.0-10.0); %Lymphocytes 12.8 % (21.0-51.0); %Monocytes 11.2 % (0.0-10.0); Hematocrit 56.6 % (42.0-52.0); Mean Platelet Volume 7.2 fL (7.4-10.4); Red Blood Cell (RBC) Count 6.14 mill/uL (4.70-6.10); White Blood Cell (WBC) Count 22.1 thou/uL (4.8-10.8)
[2017-01-08 06:08] LABS: Anion Gap 16 mmol/L (10-20); BUN (Urea Nitrogen) 41 mg/dL (8.4-25.7); Calc. Creatinine Clearance 87 mL/min (70-130); Calcium 8.8 mg/dL (7.8-10.44); Carbon Dioxide 25 mmol/L (23-31); Chloride 104 mmol/L (98-107); Estimated GFR-MDRD 85; Magnesium 2.8 mg/dL (1.6-2.6)
[2017-01-08] MEDS: Potassium Chloride 40 MEQ in Sodium Chloride 0.9% 250 ML 250 ML IVPB PRN (06:45)
[2017-01-08] MEDS: Famotidine/PF 20 mg/2ml Vial IVPB SCH ×2 (07:14→20:06)
[2017-01-08] MEDS: Furosemide 40 MG/4 ML VIAL IVP SCH (07:14)
[2017-01-08] MEDS: Enoxaparin Sodium 40 MG/0.4 ML SYRINGE SC SCH (07:14)
--- NOTE | 2017-01-08 08:51 | RAD ---
PORTABLE CHEST: History: Post op right thoracotomy follow up. Comparison: 01-07-17 FINDINGS: NG tube has been placed. Right chest again noted. Right subcutaneous emphysema. Vascular and interst itial prominence remains. No definite pneumothorax. Some hazy alveolar changes in the right mid and lower lung may represent atelectasis or infiltrate. IMPRESSION: Chest is not appreciably significantly changed from yesterday. POS: [facility]
--- NOTE | 2017-01-08 10:00 | PDOC.PN ---
- Subjective Encounter Start Date: 01/08/17 Encounter Start Time: 09:58 Subjective: confused - Objective MAR Reviewed: Yes Vital Signs & Weight: Vital Signs (12 hours) Temp Pulse Resp Pulse Ox 01/08/17 08:00 99.1 F 99 24 H 99 01/08/17 07:00 99.1 F 01/08/17 06:29 92 24 H 99 01/08/17 04:00 99.2 F 01/08/17 02:33 95 26 H 97 01/07/17 22:37 98 20 99 Weight Admit Weight 178 lb 8 oz Weight 172 lb 13.478 oz Most Recent Monitor Data Heart Rate from ECG 96 NIBP 119/92 NIBP BP-Mean 105 Respiration from ECG 29 SpO2 97 I&O: 01/07/17 01/08/17 01/09/17 06:59 06:59 06:59 Intake Total 1392 766 Output Total 4455 2303 680 [facility] -3073 -1537 -680 Result Diagrams: 01/08/17 04:17 01/08/17 04:17 Radiology Reviewed by me: Yes (cxr-R chest tube, NG tube, interstitial changes persist) Phys Exam - Physical Examination Constitutional: NAD Neck: no JVD diffuse fine rales, decreased BS Cardiovascular: RRR, no significant murmur Gastrointestinal: soft, non-tender, positive bowel sounds Musculoskeletal: no edema Dx/Plan (1) Acute and chronic respiratory failure Code(s): J96.20 - ACUTE AND CHR RESP FAILURE, UNSP W HYPOXIA OR HYPERCAPNIA Status: Acute Qualifiers: Respiratory failure complication: unspecified whether with hypoxia or hypercapnia Qualified Code(s): J96.20 - Acute and chronic respiratory failure , unspecified whether with hypoxia or hypercapnia (2) Pulmonary fibrosis Code(s): J84.10 - PULMONARY FIBROSIS, UNSPECIFIED Status: Acute (3) HTN (hypertension) Code(s): I10 - ESSENTIAL (PRIMARY) HYPERTENSION Status: Acute Qualifiers: Hypertension type: essential hypertension Qualified Code(s): I10 - Essential (primary) hypertension (4) Dyslipidemia Code(s): E78.5 - HYPERLIPIDEMIA, UNSPECIFIED Status: Chronic (5) Leukocytosis Code(s): D72.829 - ELEVATED WHITE BLOOD CELL COUNT, UNSPECIFIED Status: Acute Qualifiers: Leukocytosis type: other Qualified Code(s): D72.828 - Other elevated white blood cell count Comment: secondary to high dose steroids - Plan cont iv steroids, O2 -: discuss with Dr Bhatia * .
--- NOTE | 2017-01-08 21:44 | PRG ---
DATE OF SERVICE: 01/08/2017 SUBJECTIVE: Matias Shepherd has no complaints today. OBJECTIVE: VITAL SIGNS: His heart rate is 99, respiratory rate is 20, oximetry is 96%, blood pressure 113/92. LUNGS: Basically unchanged. HEART: Basically unchanged. ABDOMEN: Basically unchanged. LABORATORY DATA: White count 22, hemoglobin 18 and platelets 390,000. Potassium is 3.2, BUN 41 and creatinine 0.89. IMPRESSION: Prerenal azotemia. Supported by increased BUN to creatinine ratio. Rise in hemoglobin . His Lasix will be held. Surprisingly, he is having swallowing dysfunction, so Speech Pathology is working with him. If we d o not see rapid improvement in his swallowing, he will need a percutaneous endoscopic gastrostomy. Pathology was sent to [facility] with the copy of his high resolution CT hopefully as I requested jerel castaneda I talked Pathology yesterday. PLAN: Continue supportive care.
[2017-01-09 05:42] LABS: Anion Gap 15 mmol/L (10-20); BUN (Urea Nitrogen) 62 mg/dL (8.4-25.7); Calc. Creatinine Clearance 72 mL/min (70-130); Calcium 8.8 mg/dL (7.8-10.44); Carbon Dioxide 25 mmol/L (23-31); Chloride 112 mmol/L (98-107); Estimated GFR-MDRD 69
[2017-01-09 06:05] LABS: Hematocrit 59.4 % (42.0-52.0); Mean Platelet Volume 7.7 fL (7.4-10.4); Red Blood Cell (RBC) Count 6.24 mill/uL (4.70-6.10); White Blood Cell (WBC) Count 39.6 thou/uL (4.8-10.8)
[2017-01-09 06:09] LABS: Band 2 % (5-11); Neutrophil 86 % (42-75)
--- NOTE | 2017-01-09 07:24 | PDOC.PN ---
- Subjective Encounter Start Date: 01/09/17 Encounter Start Time: 07:18 Subjective: awake, calm - Objective MAR Reviewed: Yes Vital Signs & Weight: Vital Signs (12 hours) Temp Pulse Resp BP Pulse Ox 01/09/17 06:51 114 H 32 H 100 01/09/17 06:03 115 H 25 H 114/86 100 01/09/17 04:00 98.6 F 01/09/17 02:19 106 H 28 H 100 01/08/17 22:21 106 H 33 H 100 01/08/17 20:00 98.8 F 103 H 26 H 98 Weight Admit Weight 178 lb 8 oz Weight 172 lb 13.478 oz Most Recent Monitor Data Heart Rate from ECG 108 NIBP 113/89 NIBP BP-Mean 96 Respiration from ECG 36 SpO2 100 I&O: 01/08/17 01/09/17 01/10/17 06:59 06:59 06:59 Intake Total 766 1784 Output Total 2303 1745 Balance -1537 39 Result Diagrams: 01/09/17 04:47 01/09/17 04:47 Radiology Reviewed by me: Yes (cxr- R CTube, cont interstitial changes) Phys Exam - Physical Examination Constitutional: NAD Neck: no JVD fine rales ant baxter Cardiovascular: RRR, no significant murmur Gastrointestinal: soft, positive bowel sounds Musculoskeletal: no edema Dx/Plan (1) Acute and chronic respiratory failure Code(s): J96.20 - ACUTE AND CHR RESP FAILURE, UNSP W HYPOXIA OR HYPERCAPNIA Status: Acute Qualifiers: Respiratory failure complication: unspecified whether with hypoxia or hypercapnia Qualified Code(s): J96.20 - Acute and chronic respiratory failure , unspecified whether with hypoxia or hypercapnia (2) Pulmonary fibrosis Code(s): J84.10 - PULMONARY FIBROSIS, UNSPECIFIED Status: Acute (3) HTN (hypertension) Code(s): I10 - ESSENTIAL (PRIMARY) HYPERTENSION Status: Acute Qualifiers: Hypertension type: essential hypertension Qualified Code(s): I10 - Essential (primary) hypertension (4) Dyslipidemia Code(s): E78.5 - HYPERLIPIDEMIA, UNSPECIFIED Status: Chronic (5) Leukocytosis Code(s): D72.829 - ELEVATED WHITE BLOOD CELL COUNT, UNSPECIFIED Status: Acute Qualifiers: Leukocytosis type: other Qualified Code(s): D72.828 - Other elevated white blood cell count Comment: secondary to high dose steroids (6) Dehydration Code(s): E86.0 - DEHYDRATION Status: Acute (7) Hyperglycemia Code(s): R73.9 - HYPERGLYCEMIA, UNSPECIFIED Status: Acute (8) Leukocytosis Code(s): D72.829 - ELEVATED WHITE BLOOD CELL COUNT, UNSPECIFIED Status: Acute - Plan tacycard, azotemia--iv saline bolus-reevaluate -: increased glucose- DUE to solumedrol- start accu/ss -: leukamoid rcn- rpt blood, urine C&S -: discuss with digital sales manager * .
[2017-01-09] MEDS ORDERED: Dextrose 50% Abboject 50 ML SYRINGE SLOW IVP PRN (07:28)
[2017-01-09] MEDS ORDERED: Dextrose 5% in Water 1,000 ML IV PRN (07:28)
[2017-01-09] MEDS ORDERED: Sodium Chloride 0.9% 1,000 ML IV SCH (07:30)
[2017-01-09] MEDS: Enoxaparin Sodium 40 MG/0.4 ML SYRINGE SC SCH (08:05)
[2017-01-09] MEDS: Famotidine/PF 20 mg/2ml Vial IVPB SCH ×2 (08:05→20:40)
--- NOTE | 2017-01-09 09:29 | RAD ---
UPRIGHT PORTABLE CHEST ONE VIEW: History: 71-year-old male post right thoracotomy follow up. Comparison: 01-08-17 FINDINGS: Dobbhoff feeding tube in place. Right chest tube. Monitor leads overlie the chest. Subcutaneous emph ysema. No significant right sided pneumothorax. IMPRESSION: Right chest tube in place with subcutaneous emphysema without significant right sided pneumothorax. Stable from prior study. POS: [facility]
[2017-01-09] MEDS ORDERED: HumaLOG 300 UNITS/3 ML VIAL ONE (11:19)
[2017-01-09] MEDS: HumaLOG 300 UNITS/3 ML VIAL SC PRN ×2 (11:20→15:52)
[2017-01-09 15:24] LABS: Anti-Striation AB Negative (Neg:<1:40); Antiparietal Cell Ab 3.6 Units (0.0-20.0); Complement C4 5 mg/dL (14-44); Mitochondrial (M2) ABS 9.9 Units (0.0-20.0); SCL-70 IgG AutoAb <0.2 AI (0.0-0.9); Smith IgG AutoAb <0.2 AI (0.0-0.9); Smooth Muscle AB 36 Units (0-19); Thyroid Peroxidase Abs 19 IU/mL (0-34); U1 RNP/SNRNP IgG AutoAb 0.3 AI (0.0-0.9)
[2017-01-09] MEDS: Sodium Chloride 0.45% 1,000 ML IV SCH (15:52)
[2017-01-09] MEDS: Acetaminophen 325 MG TAB PO PRN ×2 (15:52→20:41)
--- NOTE | 2017-01-09 16:42 | PRG ---
DATE OF SERVICE: 01/09/2017 SUBJECTIVE: Mr. Shepherd remains hemodynamically stable. He is in no respiratory distress. His swall owing is no better by the bowel evaluation today. OBJECTIVE: VITAL SIGNS: Afebrile, heart rate is 112, respiratory rates in the 20s to low 30s, oximetry is 100% on 3 liters, blood pressure 109/82. LUNGS: Remarkable for crackles at his bases. HEART: Regular rhythm. ABDOMEN: Soft. He has been out of bed, so we need to get him up in the chair, has relayed to the nurse. LABORATORY DATA: White count today is 39.6, hemoglobin 19.8, platelets 383,000. Electrolytes were unremarkable. BUN is up to 62. He diuresed 1537 yesterday and was positive 39 today. Probably sti ll fairly behind on IV fluids. He is not draining a lot out of his chest. There is no reason for h im to have diabetes insipidus, so will simply increase his fluids for now and his Lasix was held at last night.
[2017-01-09 17:09] LABS: Oxyhemoglobin 94.5 % (94.0-97.0); Sodium 142 mmol/L (135-148)
[2017-01-09 17:47] LABS: Mode OR ABG; Vent YES
--- NOTE | 2017-01-09 19:44 | CON ---
DATE OF CONSULTATION: 01/09/2017 HISTORY OF PRESENT ILLNESS: The patient is a 71-year-old gentleman who is admitted to the ICU with interstitial lung disease. According to nursing personnel failed a swallowing test. Consu ltation is requested for a PEG placement. PAST MEDICAL HISTORY: Includes hypertension, hyperlipidemia. PAST SURGICAL HISTORY: None. ALLERGIES: No known allergies. FAMILY HISTORY: Negative for GI or liver disease. REVIEW OF SYSTEMS: Unobtainable. PHYSICAL EXAMINATION: GENERAL: Shows an ill-appearing male in no acute distress. VITAL SIGNS: Pulse is 108, respiratory rate 34, blood pressure 116/87. HEENT: Shows Dobhoff feeding tube in the left naris. He has some irritation to his mucous membrane s. NECK: Supple. CHEST: Clear. CARDIOVASCULAR: Regular rate and rhythm. ABDOMEN: Benign. EXTREMITIES: Normal. NEUROLOGIC: Nonfocal. ASSESSMENT: 1. Oropharyngeal dysphagia. 2. Interstitial lung disease. RECOMMENDATIONS: EGD and percutaneous endoscopic gastrostomy placement tomorrow.
[2017-01-10] MEDS: Sodium Chloride 0.45% 1,000 ML IV SCH (00:48)
[2017-01-10 05:17] LABS: White Blood Cell (WBC) Count 46.1 thou/uL (4.8-10.8)
[2017-01-10 05:30] LABS: Band 1 % (5-11); Hematocrit 59.7 % (42.0-52.0); Mean Platelet Volume 7.7 fL (7.4-10.4); Neutrophil 81 % (42-75); Red Blood Cell (RBC) Count 6.16 mill/uL (4.70-6.10)
[2017-01-10 05:43] LABS: BUN (Urea Nitrogen) 41 mg/dL (8.4-25.7); Calc. Creatinine Clearance 93 mL/min (70-130); Calcium 7.9 mg/dL (7.8-10.44); Chloride 117 mmol/L (98-107); Estimated GFR-MDRD Greater than 90; Magnesium 2.6 mg/dL (1.6-2.6)
[2017-01-10 06:01] LABS: Anion Gap 15 mmol/L (10-20); Carbon Dioxide 24 mmol/L (23-31)
[2017-01-10] MEDS: Enoxaparin Sodium 40 MG/0.4 ML SYRINGE SC SCH (08:04)
[2017-01-10] MEDS: Famotidine/PF 20 mg/2ml Vial IVPB SCH ×2 (08:04→21:41)
--- NOTE | 2017-01-10 09:41 | PDOC.PN ---
- Subjective Encounter Start Date: 01/10/17 Encounter Start Time: 09:40 Subjective: alert, no distress - Objective Vital Signs & Weight: Vital Signs (12 hours) Temp Pulse Resp BP Pulse Ox 01/10/17 07:30 102 H 32 H 100 01/10/17 06:00 106 H 26 H 112/84 99 01/10/17 05:00 107 H 22 H 114/84 97 01/10/17 04:00 99.4 F 105 H 28 H 119/85 100 01/10/17 03:00 109 H 32 H 111/84 94 L 01/10/17 02:16 106 H 31 H 100 01/10/17 02:00 108 H 29 H 112/85 100 01/10/17 01:00 106 H 30 H 114/84 99 01/10/17 00:00 97.9 F 112 H 34 H 112/83 99 01/09/17 23:00 113 H 30 H 112/79 100 01/09/17 22:36 108 H 32 H 100 01/09/17 22:00 110 H 30 H 113/84 100 Weight Admit Weight 178 lb 8 oz Weight 172 lb 13.478 oz Most Recent Monitor Data Heart Rate from ECG 108 NIBP 113/89 NIBP BP-Mean 96 Respiration from ECG 36 SpO2 100 I&O: 01/09/17 01/10/17 01/11/17 06:59 06:59 06:59 Intake Total 1784 3853 Output Total 1745 1800 Balance 39 2052 Result Diagrams: 01/10/17 04:54 01/10/17 04:54 Additional Labs: Accuchecks 01/09/17 01/09/17 01/09/17 20:46 15:47 11:13 POC Glucose 208 H 202 H 270 H Phys Exam - Physical Examination Constitutional: NAD Neck: no JVD fine rales, decreased BS Cardiovascular: RRR, no significant murmur Gastrointestinal: soft, positive bowel sounds Musculoskeletal: no edema Deviation from normal: poor turgor Dx/Plan (1) Acute and chronic respiratory failure Code(s): J96.20 - ACUTE AND CHR RESP FAILURE, UNSP W HYPOXIA OR HYPERCAPNIA Status: Acute Qualifiers: Respiratory failure complication: unspecified whether with hypoxia or hypercapnia Qualified Code(s): J96.20 - Acute and chronic respiratory failure , unspecified whether with hypoxia or hypercapnia (2) Pulmonary fibrosis Code(s): J84.10 - PULMONARY FIBROSIS, UNSPECIFIED Status: Acute (3) HTN (hypertension) Code(s): I10 - ESSENTIAL (PRIMARY) HYPERTENSION Status: Acute Qualifiers: Hypertension type: essential hypertension Qualified Code(s): I10 - Essential (primary) hypertension (4) Dyslipidemia Code(s): E78.5 - HYPERLIPIDEMIA, UNSPECIFIED Status: Chronic (5) Leukocytosis Code(s): D72.829 - ELEVATED WHITE BLOOD CELL COUNT, UNSPECIFIED Status: Acute Qualifiers: Leukocytosis type: other Qualified Code(s): D72.828 - Other elevated white blood cell count Comment: secondary to high dose steroids (6) Dehydration Code(s): E86.0 - DEHYDRATION Status: Acute (7) Hyperglycemia Code(s): R73.9 - HYPERGLYCEMIA, UNSPECIFIED Status: Acute (8) Leukocytosis Code(s): D72.829 - ELEVATED WHITE BLOOD CELL COUNT, UNSPECIFIED Status: Acute (9) Hypernatremia Code(s): E87.0 - HYPEROSMOLALITY AND HYPERNATREMIA Status: Acute - Plan PEG planned today -: change iv fluids to D5-04/25 NS -: cont iv steroids -: blood C&S neg at 24 hrs -: discuss with messenger copy * .
[2017-01-10] MEDS: HumaLOG 300 UNITS/3 ML VIAL SC PRN ×3 (11:11→21:27)
[2017-01-10] MEDS: Scopolamine 1.5 mg/72 hour Patch TD SCH (17:11)
[2017-01-10] MEDS ORDERED: Vancomycin HCl 1 GM in Premix Bag 1 BAG IVPB SCH (18:00)
[2017-01-10] MEDS ORDERED: Midazolam HCl 2 mg/2 ml Vial ONE (19:34)
[2017-01-10] MEDS ORDERED: Fentanyl 100 MCG/2 ML VIAL ONE (19:34)
[2017-01-10] MEDS ORDERED: Propofol 200 MG/20 ML VIAL ONE (19:57)
[2017-01-10] MEDS ORDERED: Succinylcholine Chloride 20 MG/ML 10 ml SYRINGE FS ONE (19:57)
[2017-01-10] MEDS ORDERED: PHENYLEPHRINE-NS 100 MCG/ML 10 ML SYRINGE ONE (19:57)
[2017-01-10] MEDS ORDERED: Lidocaine 1% PF 5 ML VIAL ONE (19:57)
[2017-01-10] MEDS ORDERED: Propofol 1,000 MG/100 ML VIAL IV ONE (20:42)
[2017-01-10] MEDS: Cefepime 2 GM in Sodium Chloride 0.9% 100 ML IVPB SCH (21:08)
[2017-01-10 21:29] LABS: Oxyhemoglobin 93.6 % (94.0-97.0); Sodium 152 mmol/L (135-148)
[2017-01-10 21:34] LABS: Mechanical Tidal Volume 500 ml; Mode SIMV; Pressure Support 10 cmH2O; Vent YES
[2017-01-10] MEDS ORDERED: Propofol 1,000 MG/100 ML VIAL IV PRN (21:40)
[2017-01-10] MEDS ORDERED: Fentanyl 20 MCG/ML 250 ML IVPB SCH (21:40)
[2017-01-10] MEDS ORDERED: Lorazepam 2 MG/ML VIAL SLOW IVP PRN (21:40)
[2017-01-10] MEDS ORDERED: DISCONTINUE PREVIOUS NARCOTIC PAIN MEDICATIONS AND BENZODIAZEPINES FS SCH (21:40)
[2017-01-10] MEDS ORDERED: Morphine Sulfate 2 MG/ML SYRINGE SLOW IVP PRN (21:40)
--- NOTE | 2017-01-10 21:44 | PRG ---
DATE OF SERVICE: 01/10/2017 SUBJECTIVE: Mr. Shepherd is having to have secretions suctioned out of his mouth. He is so weak. He is having some mild difficulty handling secretions, but he is not respiratory compromised. He gave me the thumbs up and says he feels \\\\"the end\\\\". OBJECTIVE: VITAL SIGNS: His heart rate is 103, respiratory rate is in the 20s, oximetry is 92% on 4 liters and blood pressure 110/79. LUNGS: Remarkable for coarse equal breath sounds. HEART: Regular rhythm. ABDOMEN: Soft. LABORATORY AND IMAGING DATA: His white count bumped up to 46,000. Hemoglobin is down to 18.8 with hydration. Intake and output is positive 2 liters. He did not have a chest radiograph today. Ches t radiograph until today has been stable. ASSESSMENT AND PLAN: Given his marked increase in white count, it will be appropriate to broaden hi s antimicrobial therapy at this point. I will go ahead and blood culture him. He is on steroids an d may not have a febrile response. We will check chest x-ray in the morning. ADDENDUM: I discussed the percutaneous endoscopic gastrostomy placement with Dr. Smith. I believe the safest route would be to intubate him and leave him intubated overnight and get the percutaneous endoscopic gastrostomy done safely given that he is having some secretion issues today. This will be our plan moving forward.
[2017-01-11] MEDS ORDERED: Acetaminophen 650 MG Suppository PR PRN (00:58)
--- NOTE | 2017-01-11 01:51 | OP ---
DATE OF PROCEDURE: 01/10/2017 PROCEDURE: Esophagogastroduodenoscopy with percutaneous endoscopic gastrostomy tube placement. PREOPERATIVE DIAGNOSIS: Dysphagia. OPERATIVE NOTE: Informed consent was obtained. The patient was sedated with general anesthesia. T he bite block was placed and the endoscope was advanced easily to the second portion of the duodenum and retroflexion was performed in the stomach. The esophagus was normal. The GE junction was norm al. The stomach was normal including retroflexed views. The pylorus and first and second portions of the duodenum were normal. The stomach was fully insufflated and transillumination was performed. The light would only shine through in the midline below the xiphoid process. Palpation of this ar ea showed good indentation. Further to the left upper quadrant underneath the left ribs, the site c ould not be palpated or transilluminated. The skin was sterilized with Betadine and anesthetized wi th 5 mL of 1% lidocaine. A small skin incision was performed with a scalpel and the catheter was pl aced through the incision into the stomach directly in one attempt under visualization with the scop e. The wire was passed through the catheter and grasped with a snare and pulled out through the pat ient's mouth. The gastrostomy tube was attached to the wire and placed by the pull-through techniqu e. The external bumper was positioned at 3 cm. Second look endoscopy showed the internal bumper to be in good position. IMPRESSION: 1. Normal esophagogastroduodenoscopy. 2. Successful placement of a 20-Khmer percutaneous endoscopic gastrostomy tube with the external b umper at 3 cm. RECOMMENDATIONS: Start feeds in 12 hours.
[2017-01-11 01:56] LABS: Anion Gap 15 mmol/L (10-20); BUN (Urea Nitrogen) 39 mg/dL (8.4-25.7); Calc. Creatinine Clearance 85 mL/min (70-130); Calcium 7.6 mg/dL (7.8-10.44); Carbon Dioxide 23 mmol/L (23-31); Chloride 116 mmol/L (98-107); Estimated GFR-MDRD 83; Magnesium 2.4 mg/dL (1.6-2.6)
[2017-01-11 03:06] LABS: Hematocrit 54.1 % (42.0-52.0); Mean Platelet Volume 8.2 fL (7.4-10.4); Red Blood Cell (RBC) Count 5.49 mill/uL (4.70-6.10); White Blood Cell (WBC) Count 34.8 thou/uL (4.8-10.8)
[2017-01-11 05:12] LABS: Neutrophil 91 % (42-75)
[2017-01-11] MEDS: HumaLOG 300 UNITS/3 ML VIAL SC PRN ×4 (05:55→22:21)
[2017-01-11 07:44] LABS: Oxyhemoglobin 94.8 % (94.0-97.0); Sodium 149 mmol/L (135-148)
[2017-01-11 07:46] LABS: Mechanical Tidal Volume 500 ml; Mode SIMV/PSV; Modified Allen's Test NOT DONE; Pressure Support 10 cmH2O; Vent YES
[2017-01-11] MEDS: Cefepime 2 GM in Sodium Chloride 0.9% 100 ML IVPB SCH ×2 (08:45→19:24)
--- NOTE | 2017-01-11 08:45 | PDOC.PN ---
- Subjective Encounter Start Date: 01/11/17 Encounter Start Time: 08:43 Subjective: post PEG, intubated, sedated - Objective MAR Reviewed: Yes Vital Signs & Weight: Vital Signs (12 hours) Temp Pulse Resp BP Pulse Ox 01/11/17 06:39 102 H 98/73 100 01/11/17 06:37 101 H 27 H 100 01/11/17 06:00 102.5 F H 30 H 01/11/17 04:00 98.5 F 27 H 01/11/17 03:00 99.4 F 01/11/17 02:37 110 H 83/58 L 01/11/17 02:00 102.5 F H 22 H 01/11/17 00:00 102.6 F H 22 H 100 01/10/17 21:45 26 H 01/10/17 21:35 107 H 110/73 01/10/17 21:00 100.6 F H Weight Admit Weight 178 lb 8 oz Weight 154 lb 15.759 oz Most Recent Monitor Data Heart Rate from ECG 104 NIBP 104/74 NIBP BP-Mean 84 Respiration from ECG 27 SpO2 100 I&O: 01/10/17 01/11/17 01/12/17 06:59 06:59 06:59 Intake Total 3853 2614.5 Output Total 1800 1425 Balance 2053 1189.5 Result Diagrams: 01/11/17 01:19 01/11/17 01:19 Additional Labs: Accuchecks 01/11/17 01/10/17 01/10/17 05:53 21:26 17:10 POC Glucose 195 H 196 H 183 H 01/10/17 11:10 POC Glucose 178 H Radiology Reviewed by me: Yes (cxr- ET tube, stable pulmonary fidings) Phys Exam - Physical Examination Constitutional: NAD Neck: no JVD fine rales, diffuse Cardiovascular: RRR, no significant murmur Gastrointestinal: soft, positive bowel sounds PEG Musculoskeletal: no edema Dx/Plan (1) Acute and chronic respiratory failure Code(s): J96.20 - ACUTE AND CHR RESP FAILURE, UNSP W HYPOXIA OR HYPERCAPNIA Status: Acute Qualifiers: Respiratory failure complication: unspecified whether with hypoxia or hypercapnia Qualified Code(s): J96.20 - Acute and chronic respiratory failure , unspecified whether with hypoxia or hypercapnia (2) Pulmonary fibrosis Code(s): J84.10 - PULMONARY FIBROSIS, UNSPECIFIED Status: Acute (3) HTN (hypertension) Code(s): I10 - ESSENTIAL (PRIMARY) HYPERTENSION Status: Acute Qualifiers: Hypertension type: essential hypertension Qualified Code(s): I10 - Essential (primary) hypertension (4) Dyslipidemia Code(s): E78.5 - HYPERLIPIDEMIA, UNSPECIFIED Status: Chronic (5) Leukocytosis Code(s): D72.829 - ELEVATED WHITE BLOOD CELL COUNT, UNSPECIFIED Status: Acute Qualifiers: Leukocytosis type: other Qualified Code(s): D72.828 - Other elevated white blood cell count Comment: secondary to high dose steroids (6) Dehydration Code(s): E86.0 - DEHYDRATION Status: Acute (7) Hyperglycemia Code(s): R73.9 - HYPERGLYCEMIA, UNSPECIFIED Status: Acute (8) Leukocytosis Code(s): D72.829 - ELEVATED WHITE BLOOD CELL COUNT, UNSPECIFIED Status: Acute (9) Hypernatremia Code(s): E87.0 - HYPEROSMOLALITY AND HYPERNATREMIA Status: Acute - Plan post PEG, start feedings today -: on high dose iv steroids -: hypernatremia improved ,cont D5-.25 Saline * .
--- NOTE | 2017-01-11 09:10 | RAD ---
CHEST 1 VIEW: Date: 01/11/17 HISTORY: Dyspnea. Intubated. Follow-up. COMPARISON: 01/09/17. FINDINGS: Cardiac silhouette is magnified by projection. Pulmonary vasculature is upper limits of normal. Righ t thoracostomy tube and atelectasis/scarring at the right base are stable. Right chest wall gas is u nchanged. Tip of an endotracheal catheter projects over the thoracic inlet. Feeding tube is no longer visible. fusing machine operator leads overlie the chest. IMPRESSION: 1. Endotracheal catheter is in good radiographic position. 2. Interval removal of the feeding tube. 3. Right thoracostomy tube remains in good radiographic position. Extensive right chest wall gas pe rsists. POS: OFF
[2017-01-11] MEDS: Famotidine/PF 20 mg/2ml Vial IVPB SCH ×2 (09:16→20:18)
[2017-01-11] MEDS: Acetaminophen 325 MG TAB PO PRN (09:16)
[2017-01-11] MEDS: Enoxaparin Sodium 40 MG/0.4 ML SYRINGE SC SCH (09:16)
--- NOTE | 2017-01-11 11:45 | PRG ---
DATE OF SERVICE: 01/11/2017 Mr. Shepherd was ventilated overnight because of secretions. He looks better this morning. PHYSICAL EXAMINATION: LUNGS: His lungs are clear. HEART: Regular rhythm. ABDOMEN: Abdomen is soft. VITAL SIGNS: Blood pressure 105/74, heart rate 82, respiratory rate in the high 20s to low 30s. There are no changes on his exam otherwise. His white count is down to 34. Hemoglobin is down to 17.4 from a high of 19.8, platelets 240,000. Sputum culture; polymicrobial which I suspect is just upper airway colonization. Blood cultures fro m 2 days ago are still negative. IMPRESSION: Developing bronchitis ? early pneumonia with leukocytosis that is improving now that an timicrobial therapy has been started. His temperature maximal last night was 102.5. His PEG was placed successfully. There is no reason to believe that he has an infection in his abdomen or anywhere else. I suspect t his is an early respiratory infection creating his fever. We will continue antimicrobial therapy fo r now. There is no evidence of an MRSA process so his vancomycin will be discontinued.
--- NOTE | 2017-01-11 15:09 | PRG ---
DATE OF SERVICE: 01/11/2017 SUBJECTIVE: Mr. Shepherd was extubated this morning. He has no abdominal pain. He is tolerating his tube feeds well. OBJECTIVE: His PEG site appears healthy. He has had fevers up to 102. However, this does not appe ar to be directly related to the PEG site at this point. There is no erythema or induration. IMPRESSION: Dysphagia, status post percutaneous endoscopic gastrostomy tube placement. PLAN: Continue tube feeds. I will sign off. Please call if GI can be of assistance.
[2017-01-12 04:49] LABS: Hematocrit 44.5 % (42.0-52.0)
[2017-01-12 04:50] LABS: #Lymphocytes 1.2 thou/uL (1.20-3.40); #Monocytes 1.8 thou/uL (0.11-0.59); #Neutrophils 21.3 thou/uL (1.40-6.50); %Basophils 0.1 % (0.0-1.0); %Eosinophils 0.1 % (0.0-10.0); %Lymphocytes 4.7 % (21.0-51.0); %Monocytes 7.2 % (0.0-10.0); Red Blood Cell (RBC) Count 4.59 mill/uL (4.70-6.10); White Blood Cell (WBC) Count 24.3 thou/uL (4.8-10.8)
[2017-01-12 05:01] LABS: Anion Gap 9 mmol/L (10-20); BUN (Urea Nitrogen) 30 mg/dL (8.4-25.7); Calc. Creatinine Clearance 85 mL/min (70-130); Calcium 7.6 mg/dL (7.8-10.44); Carbon Dioxide 25 mmol/L (23-31); Chloride 112 mmol/L (98-107); Estimated GFR-MDRD Greater than 90; Magnesium 2.2 mg/dL (1.6-2.6)
[2017-01-12] MEDS: Diabetic Tussin 200 MG/10 ML UDCUP PER TUBE SCH ×4 (05:19→23:28)
[2017-01-12] MEDS: HumaLOG 300 UNITS/3 ML VIAL SC PRN ×4 (05:43→21:10)
[2017-01-12] MEDS: Famotidine/PF 20 mg/2ml Vial IVPB SCH ×2 (08:54→20:56)
[2017-01-12] MEDS: Enoxaparin Sodium 40 MG/0.4 ML SYRINGE SC SCH (08:55)
[2017-01-12] MEDS: Cefepime 2 GM in Sodium Chloride 0.9% 100 ML IVPB SCH ×2 (08:55→20:56)
--- NOTE | 2017-01-12 11:29 | RAD ---
AP VIEW CHEST: 01/12/2017 HISTORY: Ventilator dependent patient. COMPARISON: 01/11/2017 FINDINGS: AP view chest demonstrates interval extubation of the patient. Previously visualized bilateral subcutaneous emphysema is still present but is improved, compared to the previous exam. Mild pulmonary vascular congestion is seen. No evidence of effusions is seen. IMPRESSION: 1. Pulmonary vascular congestion. 2. Decreased subcutaneous emphysema. POS: [facility]
--- NOTE | 2017-01-12 16:02 | PRG ---
DATE OF SERVICE: 01/12/2017 Matias Shepherd has a PEG tube place in. Denies any difficulty breathing. PHYSICAL EXAMINATION: VITAL SIGNS: His blood pressure is 108/60, pulse 80, respirations 18, sats 96%. CHEST: Extensive bilateral crackles. CARDIAC: Normal S1, S2. No gallops. ABDOMEN: Soft. No masses. LABORATORY DATA: White count 24,000, H\T\H 14 and 43, platelet count is normal. Electrolytes are n ormal. IMPRESSION: 1. Respiratory failure. 2. Pulmonary fibrosis. 3. Dysphagia. PLAN: Awaiting path report, continue neb treatment, antibiotics, and supportive care. We will foll ow.
--- NOTE | 2017-01-12 18:41 | PDOC.PN ---
- Subjective Encounter Start Date: 01/12/17 Encounter Start Time: 18:30 Subjective: Nsg report s/p PEG placement with TF's Jevity 1.2 at 70ml/h. Increased -: sputum per nsg. Post intubation with successful extubation in last 24h. - Objective MAR Reviewed: Yes Vital Signs & Weight: Vital Signs (12 hours) Temp Pulse Pulse Pulse Resp BP BP 01/12/17 16:56 80 31 H 01/12/17 15:00 98.3 F 01/12/17 12:00 98.2 F 01/12/17 11:14 01/12/17 11:13 82 24 H 01/12/17 10:22 85 83 123/80 105/73 01/12/17 08:00 98.1 F 82 28 H 01/12/17 07:00 98.1 F Pulse Ox Pulse Ox Pulse Ox 01/12/17 16:56 93 L 01/12/17 15:00 01/12/17 12:00 01/12/17 11:14 95 01/12/17 11:13 95 01/12/17 10:22 90 L 92 L 01/12/17 08:00 01/12/17 07:00 Weight Admit Weight 178 lb 8 oz Weight 151 lb 0.266 oz Most Recent Monitor Data Heart Rate from ECG 87 NIBP 107/63 NIBP BP-Mean 72 Respiration from ECG 34 SpO2 95 I&O: 01/11/17 01/12/17 01/13/17 06:59 06:59 06:59 Intake Total 2614.5 4063.9 2174 Output Total 1425 1805 1320 Balance 1189.5 2258.9 854 Result Diagrams: 01/12/17 04:21 01/12/17 04:21 Additional Labs: Accuchecks 01/12/17 01/12/17 01/12/17 17:14 08:52 05:22 POC Glucose 300 H 337 H 285 H 01/11/17 21:18 POC Glucose 257 H Radiology Reviewed by me: Yes (PCXR - increased bilateral opacities) EKG Reviewed by me: Yes (Tele - SR in 80's) Phys Exam - Physical Examination alert, responsive small ulcer/blisters in oral cavity HEENT: PERRLA Neck: no JVD, supple diminished in bases Respiratory: no wheezing Cardiovascular: RRR PEG in place Gastrointestinal: soft, non-tender, no distention, positive bowel sounds Musculoskeletal: no edema, pulses present Neurological: normal sensation, moves all 4 limbs Skin: normal turgor, cap refill <2 seconds Dx/Plan (1) Acute and chronic respiratory failure Code(s): J96.20 - ACUTE AND CHR RESP FAILURE, UNSP W HYPOXIA OR HYPERCAPNIA Status: Acute Qualifiers: Respiratory failure complication: unspecified whether with hypoxia or hypercapnia Qualified Code(s): J96.20 - Acute and chronic respiratory failure , unspecified whether with hypoxia or hypercapnia Comment: Stabilized currently, continue supportive measures (2) Hyperglycemia Code(s): R73.9 - HYPERGLYCEMIA, UNSPECIFIED Status: Acute Comment: Likely due to steroid effect, Levemir 15u sc HS, ISS aggressive scale (3) Leukocytosis Code(s): D72.829 - ELEVATED WHITE BLOOD CELL COUNT, UNSPECIFIED Status: Acute Comment: Improved, continue Cefepime and monitor clinically (4) Pulmonary fibrosis Code(s): J84.10 - PULMONARY FIBROSIS, UNSPECIFIED Status: Chronic (5) Hilar adenopathy Code(s): R59.0 - LOCALIZED ENLARGED LYMPH NODES Status: Chronic (6) Pneumonia Code(s): J18.9 - PNEUMONIA, UNSPECIFIED ORGANISM Status: Acute Qualifiers: Pneumonia type: due to unspecified organism Laterality: bilateral Comment: Continue Cefepime 2gm IV q12h, continue Solumedrol 40mg IV q6h, Duonebs - Plan continue antibiotics, PT/OT, medical social consultant, respiratory therapy, out of bed/ ambulate, DVT proph w/SCDs Stable overall -: Nutritional support with Jevity 1.2 at 70ml/h -: Continue Cefepime 2gm IV q12h -: Nystatin SSP 10ml QID prn -: AM lab: BMP, CBC * .
[2017-01-12] MEDS ORDERED: Dextrose 5% in Water 1,000 ML IV PRN (18:44)
[2017-01-12] MEDS ORDERED: Dextrose 50% Abboject 50 ML SYRINGE SLOW IVP PRN (18:44)
[2017-01-12] MEDS: Acetaminophen 325 MG TAB PO PRN (20:56)
[2017-01-12] MEDS: Nystatin 500,000 UNITS/5 ML UDCUP SSW SCH (20:56)
[2017-01-12] MEDS ORDERED: Insulin Detemir 100 UNITS/ML 15 UNITS in Pre-Filled Syringe 1 EACH SC SCH (21:00)
[2017-01-13 05:15] LABS: Anion Gap 11 mmol/L (10-20); BUN (Urea Nitrogen) 27 mg/dL (8.4-25.7); Calc. Creatinine Clearance 92 mL/min (70-130); Carbon Dioxide 23 mmol/L (23-31); Chloride 109 mmol/L (98-107); Estimated GFR-MDRD Greater than 90; Magnesium 1.8 mg/dL (1.6-2.6)
[2017-01-13] MEDS: Diabetic Tussin 200 MG/10 ML UDCUP PER TUBE SCH ×3 (05:27→17:23)
[2017-01-13] MEDS: HumaLOG 300 UNITS/3 ML VIAL SC PRN ×4 (05:27→20:52)
[2017-01-13 08:18] LABS: Band 1 % (5-11); Hematocrit 42.1 % (42.0-52.0); Mean Platelet Volume 9.3 fL (7.4-10.4); Neutrophil 93 % (42-75); Red Blood Cell (RBC) Count 4.44 mill/uL (4.70-6.10)
[2017-01-13] MEDS: Enoxaparin Sodium 40 MG/0.4 ML SYRINGE SC SCH (09:20)
[2017-01-13] MEDS: Nystatin 500,000 UNITS/5 ML UDCUP SSW SCH ×4 (09:20→20:34)
[2017-01-13] MEDS: Cefepime 2 GM in Sodium Chloride 0.9% 100 ML IVPB SCH ×2 (09:20→20:32)
[2017-01-13] MEDS: Acetaminophen 325 MG TAB PO PRN ×3 (09:21→20:34)
[2017-01-13] MEDS: Famotidine/PF 20 mg/2ml Vial IVPB SCH ×2 (09:21→20:33)
--- NOTE | 2017-01-13 11:31 | RAD ---
AP VIEW CHEST: HISTORY: Ventilator-dependent patient. FINDINGS: AP view chest is obtained on 01/13/17. Comparison is made to previous exam from 01/12/17. AP view chest demonstrates EKG leads seen over the chest. Mild pulmonary vasculature congestion is seen. No evidence of effusions, pneumonia, or pneumothorax seen. Subcutaneous emphysema is still p resent but slightly decreased. No other significant abnormality is noted. IMPRESSION: Subcutaneous emphysema and pulmonary vascular congestion. POS: [facility]
--- NOTE | 2017-01-13 17:13 | PRG ---
DATE OF SERVICE: 01/13/2017 SUBJECTIVE: He denied any distress. OBJECTIVE: VITAL SIGNS: Sats are 92% on 2 liters, respirations 20, temperature 98, blood pressure is 120/80. CHEST: Chest reveals decreased breath sounds, no wheezing. CARDIAC: Normal S1, S2, no gallops. ABDOMEN: Soft, no masses. LABORATORY DATA: White count 22,000, hemoglobin and hematocrit are 13 and 42, platelet count normal . Electrolytes are normal. X-RAY FINDINGS: His x-ray shows no obvious infiltrates, but he has got MRSA in his sputum. Right l anne-marie pneumonia, MRSA culture. PEG in place. IMPRESSION: 1. Pulmonary fibrosis. 2. Pneumonia, Staph possibly, PEG in place. PLAN: He is still on Maxipime and steroids. Because of leukocytosis and Staph in his sputum, we wi ll probably empirically start him on oral Bactrim, this may be colonization.
[2017-01-13] MEDS: Scopolamine 1.5 mg/72 hour Patch TD SCH (17:22)
--- NOTE | 2017-01-13 19:45 | PDOC.PN ---
- Subjective Encounter Start Date: 01/13/17 Encounter Start Time: 18:30 Subjective: f/u for pneumonia and pulmonary fibrosis. Currently tx with Cefepime , -: Bactrim and Solumedrol. Tolerating TF's without increased residuals. -: Glucose labile. - Objective MAR Reviewed: Yes Vital Signs & Weight: Vital Signs (12 hours) Temp Pulse Resp Pulse Ox 01/13/17 18:45 65 20 100 01/13/17 15:00 98.2 F 01/13/17 13:57 69 20 98 01/13/17 11:00 98.2 F 01/13/17 09:52 76 20 99 01/13/17 08:00 98.5 F 84 34 H Weight Admit Weight 178 lb 8 oz Weight 156 lb 8.451 oz Most Recent Monitor Data Heart Rate from ECG 81 NIBP 111/71 NIBP BP-Mean 78 Respiration from ECG 37 SpO2 96 I&O: 01/12/17 01/13/17 01/14/17 06:59 06:59 06:59 Intake Total 4063.9 4086 1000 Output Total 1805 2725 955 Balance 2258.9 1361 45 Result Diagrams: 01/13/17 04:34 01/13/17 04:34 Additional Labs: Accuchecks 01/13/17 01/13/17 01/12/17 17:24 09:19 20:21 POC Glucose 268 H 238 H 291 H Laboratory Tests 01/09/17 01/10/17 01/11/17 04:47 04:54 01:19 WBC 39.6 H 46.1 H* 34.8 H Magnesium 01/13/17 04:34 WBC Magnesium 1.8 Radiology Reviewed by me: Yes (PCXR - persistent infiltrates and subq emphysema) EKG Reviewed by me: Yes (Tele - SR ) Phys Exam - Physical Examination Constitutional: NAD HEENT: PERRLA Neck: no JVD, supple diminished in bases Respiratory: no wheezing Cardiovascular: RRR PEG site CDI Gastrointestinal: soft, non-tender, no distention, positive bowel sounds Musculoskeletal: no edema, pulses present Neurological: normal sensation Skin: normal turgor, cap refill <2 seconds Dx/Plan (1) Acute and chronic respiratory failure Code(s): J96.20 - ACUTE AND CHR RESP FAILURE, UNSP W HYPOXIA OR HYPERCAPNIA Status: Acute Qualifiers: Respiratory failure complication: unspecified whether with hypoxia or hypercapnia Qualified Code(s): J96.20 - Acute and chronic respiratory failure , unspecified whether with hypoxia or hypercapnia Comment: Stabilized currently, continue supportive measures (2) Hyperglycemia Code(s): R73.9 - HYPERGLYCEMIA, UNSPECIFIED Status: Acute Comment: Likely due to steroid effect, increase Levemir 20u sc HS, ISS aggressive scale (3) Leukocytosis Code(s): D72.829 - ELEVATED WHITE BLOOD CELL COUNT, UNSPECIFIED Status: Acute Comment: Improved, continue Cefepime and monitor clinically, concomitant steroid effect (4) Pulmonary fibrosis Code(s): J84.10 - PULMONARY FIBROSIS, UNSPECIFIED Status: Chronic (5) Hilar adenopathy Code(s): R59.0 - LOCALIZED ENLARGED LYMPH NODES Status: Chronic (6) Pneumonia Code(s): J18.9 - PNEUMONIA, UNSPECIFIED ORGANISM Status: Acute Qualifiers: Pneumonia type: due to unspecified organism Laterality: bilateral Comment: Continue Cefepime 2gm IV q12h, continue Solumedrol 40mg IV q6h, Duonebs - Plan continue antibiotics, administrator social welfare, respiratory therapy, DVT proph w/SCDs Continue supportive measures -: Nutritional support with Jevity 1.2 at 70ml/h -: Continue Cefepime and Bactrim -: Change Levemir 20u sc HS -: Decrease IVF rate 75ml/h * AM lab: BMP, CBC
[2017-01-13] MEDS: Sulfameth/Trimethoprim DS 800-160mg TAB PO SCH (20:34)
[2017-01-13] MEDS: Insulin Detemir 100 UNITS/ML 20 UNITS in Pre-Filled Syringe SC SCH (20:51)
[2017-01-14] MEDS: Diabetic Tussin 200 MG/10 ML UDCUP PER TUBE SCH ×4 (00:40→20:21)
[2017-01-14 04:24] LABS: #Lymphocytes 1.3 thou/uL (1.20-3.40); #Monocytes 1.1 thou/uL (0.11-0.59); #Neutrophils 14.4 thou/uL (1.40-6.50); %Basophils 0.1 % (0.0-1.0); %Eosinophils 0.1 % (0.0-10.0); %Lymphocytes 7.9 % (21.0-51.0); %Monocytes 6.5 % (0.0-10.0); Hematocrit 41.6 % (42.0-52.0); Red Blood Cell (RBC) Count 4.43 mill/uL (4.70-6.10); White Blood Cell (WBC) Count 16.9 thou/uL (4.8-10.8)
[2017-01-14 04:45] LABS: Anion Gap 12 mmol/L (10-20); BUN (Urea Nitrogen) 21 mg/dL (8.4-25.7); Calc. Creatinine Clearance 106 mL/min (70-130); Calcium 8.1 mg/dL (7.8-10.44); Carbon Dioxide 22 mmol/L (23-31); Chloride 105 mmol/L (98-107); Estimated GFR-MDRD Greater than 90; Magnesium 1.8 mg/dL (1.6-2.6)
[2017-01-14] MEDS: HumaLOG 300 UNITS/3 ML VIAL SC PRN (06:00)
--- NOTE | 2017-01-14 08:00 | RAD ---
SINGLE VIEW OF THE CHEST: COMPARISON: 01/13/17. HISTORY: Ventilated patient with respiratory failure. FINDINGS: A single view of the chest shows a normal-size cardiomediastinal silhouette. Increased interstitial lung markings are present. There is no evidence of consolidation, mass, or pleural effusion. Dege nerative changes are seen in the spine. IMPRESSION: No evidence of acute cardiopulmonary disease. POS: [facility]
[2017-01-14] MEDS: Famotidine/PF 20 mg/2ml Vial IVPB SCH ×2 (10:20→20:33)
[2017-01-14] MEDS: Acetaminophen 325 MG TAB PO PRN (10:21)
[2017-01-14] MEDS: Cefepime 2 GM in Sodium Chloride 0.9% 100 ML IVPB SCH (10:21)
[2017-01-14] MEDS: Sulfameth/Trimethoprim DS 800-160mg TAB PO SCH ×2 (10:21→20:33)
[2017-01-14] MEDS: Enoxaparin Sodium 40 MG/0.4 ML SYRINGE SC SCH (10:22)
[2017-01-14] MEDS: Nystatin 500,000 UNITS/5 ML UDCUP SSW SCH ×4 (12:16→20:33)
--- NOTE | 2017-01-14 15:56 | PRG ---
DATE OF SERVICE: 01/14/2017 SUBJECTIVE: Mr. Shepherd did well over the weekend. He denies shortness of breath. He appears strong er. PHYSICAL EXAMINATION: VITAL SIGNS: Heart rate 73, blood pressure 110/66, respiratory rate is 25. LUNGS: Remarkable for fine crackles at bases. CARDIOVASCULAR: Regular rhythm. ABDOMEN: Soft. LABORATORY DATA: White count 16.9, hemoglobin 14.4, and platelets 23,000. Sodium 135, potassium 4, chloride 105, bicarbonate 22, BUN 21, creatinine 0.66. IMPRESSION: 1. Bronchitis. 2. Leukocytosis secondary to intravascular volume depletion probably secondary to an early infectio us process in his tracheobronchial tree. Blood culture is negative. Stop his IV antibiotics. He i s on sulfa now. He appears to be clinically improving. His chest tube is out. He can be transferr ed out of the Critical Care Unit.
[2017-01-14] MEDS: Insulin Detemir 100 UNITS/ML 20 UNITS in Pre-Filled Syringe SC SCH (20:34)
[2017-01-15] MEDS: Diabetic Tussin 200 MG/10 ML UDCUP PER TUBE SCH ×4 (00:59→17:51)
[2017-01-15] MEDS: HumaLOG 300 UNITS/3 ML VIAL SC PRN ×3 (00:59→12:41)
[2017-01-15] MEDS: Enoxaparin Sodium 40 MG/0.4 ML SYRINGE SC SCH (09:35)
[2017-01-15] MEDS: Sulfameth/Trimethoprim DS 800-160mg TAB PO SCH ×2 (09:36→20:51)
[2017-01-15] MEDS: Famotidine/PF 20 mg/2ml Vial IVPB SCH ×2 (09:36→20:50)
[2017-01-15] MEDS: Nystatin 500,000 UNITS/5 ML UDCUP SSW SCH ×4 (09:36→20:51)
--- NOTE | 2017-01-15 14:08 | PDOC.PN ---
- Subjective Encounter Start Date: 01/14/17 Encounter Start Time: 14:00 Subjective: Doing ok overall. Tolerating TF's with Jevity 1.2. BM's ok. - Objective MAR Reviewed: Yes Vital Signs & Weight: Vital Signs (12 hours) Temp Pulse Resp BP BP BP Pulse Ox 01/15/17 13:02 79 18 95 01/15/17 11:46 98.2 F 75 20 97/63 93 L 01/15/17 07:44 98.3 F 84 16 92/65 95 01/15/17 06:00 71 18 97 01/15/17 04:00 98.4 F 77 16 100/69 91 L 01/15/17 02:11 95 Weight Admit Weight 178 lb 8 oz Weight 156 lb 7 oz Most Recent Monitor Data Heart Rate from ECG 72 NIBP 101/71 NIBP BP-Mean 79 Respiration from ECG 26 SpO2 97 I&O: 01/14/17 01/15/17 01/16/17 06:59 06:59 06:59 Intake Total 3079 360 Output Total 1980 3235 Balance 1099 -9759 Result Diagrams: 01/14/17 04:14 01/14/17 04:14 Additional Labs: Accuchecks 01/15/17 01/15/17 01/15/17 11:48 05:32 00:49 POC Glucose 206 H 211 H 250 H 01/14/17 01/14/17 19:29 15:48 POC Glucose 251 H 276 H Phys Exam - Physical Examination Constitutional: NAD alert, responsive HEENT: PERRLA, oral pharynx no lesions Neck: no JVD, supple Respiratory: no wheezing Cardiovascular: RRR PEG site CDI Gastrointestinal: soft, non-tender, no distention, positive bowel sounds Musculoskeletal: no edema, pulses present Neurological: normal sensation, moves all 4 limbs Psychiatric: A&O x 3 Skin: normal turgor, cap refill <2 seconds Dx/Plan (1) Acute and chronic respiratory failure Code(s): J96.20 - ACUTE AND CHR RESP FAILURE, UNSP W HYPOXIA OR HYPERCAPNIA Status: Acute Qualifiers: Respiratory failure complication: unspecified whether with hypoxia or hypercapnia Qualified Code(s): J96.20 - Acute and chronic respiratory failure , unspecified whether with hypoxia or hypercapnia Comment: Stabilized currently, continue supportive measures, O2 prn (2) Hyperglycemia Code(s): R73.9 - HYPERGLYCEMIA, UNSPECIFIED Status: Acute Comment: Likely due to steroid effect, increase Levemir 20u sc HS, ISS aggressive scale (3) Leukocytosis Code(s): D72.829 - ELEVATED WHITE BLOOD CELL COUNT, UNSPECIFIED Status: Acute Comment: Improved, Bactrim daily, concomitant steroid effect (4) Pulmonary fibrosis Code(s): J84.10 - PULMONARY FIBROSIS, UNSPECIFIED Status: Chronic (5) Hilar adenopathy Code(s): R59.0 - LOCALIZED ENLARGED LYMPH NODES Status: Chronic (6) Pneumonia Code(s): J18.9 - PNEUMONIA, UNSPECIFIED ORGANISM Status: Acute Qualifiers: Pneumonia type: due to unspecified organism Laterality: bilateral Comment: Continue Bactrim, Solumedrol 40mg IV daily, Duonebs - Plan plan discussed w/ family, continue antibiotics, PT/OT, social and human services assistant, respiratory therapy, out of bed/ambulate, DVT proph w/SCDs Stable overall -: Continue supportive care -: Nutritional support with Jevity 1.2 -: Consider speech re-evaluation for dysphagia -: CM for dispo planning * .
--- NOTE | 2017-01-15 14:15 | PDOC.PN ---
- Subjective Encounter Start Date: 01/15/17 Encounter Start Time: 13:50 Subjective: States he wants to eat. Receiving TF's with Jevity 1.2 without difficulty. -: BM's regular. No fever or emesis. Ambulated 180ft with PT. - Objective MAR Reviewed: Yes Vital Signs & Weight: Vital Signs (12 hours) Temp Pulse Resp BP BP BP Pulse Ox 01/15/17 13:02 79 18 95 01/15/17 11:46 98.2 F 75 20 97/63 93 L 01/15/17 07:44 98.3 F 84 16 92/65 95 01/15/17 06:00 71 18 97 01/15/17 04:00 98.4 F 77 16 100/69 91 L Weight Admit Weight 178 lb 8 oz Weight 156 lb 7 oz Most Recent Monitor Data Heart Rate from ECG 72 NIBP 101/71 NIBP BP-Mean 79 Respiration from ECG 26 SpO2 97 I&O: 01/14/17 01/15/17 01/16/17 06:59 06:59 06:59 Intake Total 3079 360 Output Total 1980 3235 Balance 1099 -2875 Result Diagrams: 01/14/17 04:14 01/14/17 04:14 Additional Labs: Accuchecks 01/15/17 01/15/17 01/15/17 11:48 05:32 00:49 POC Glucose 206 H 211 H 250 H 01/14/17 01/14/17 19:29 15:48 POC Glucose 251 H 276 H Radiology Reviewed by me: Yes (PCXR - 01/14/17 - no new infiltrate, increased interstitial markings) Phys Exam - Physical Examination Constitutional: NAD HEENT: PERRLA, oral pharynx no lesions Neck: no JVD, supple Respiratory: no wheezing, clear to auscultation bilateral Cardiovascular: RRR PEG site CDI Gastrointestinal: soft, non-tender, no distention, positive bowel sounds Musculoskeletal: no edema, pulses present Neurological: normal sensation, moves all 4 limbs Psychiatric: A&O x 3 Skin: normal turgor, cap refill <2 seconds Dx/Plan (1) Acute and chronic respiratory failure Code(s): J96.20 - ACUTE AND CHR RESP FAILURE, UNSP W HYPOXIA OR HYPERCAPNIA Status: Acute Qualifiers: Respiratory failure complication: unspecified whether with hypoxia or hypercapnia Qualified Code(s): J96.20 - Acute and chronic respiratory failure , unspecified whether with hypoxia or hypercapnia Comment: Stabilized currently, continue supportive measures, O2 prn (2) Hyperglycemia Code(s): R73.9 - HYPERGLYCEMIA, UNSPECIFIED Status: Acute Comment: Likely due to steroid effect, increase Levemir 30u sc HS, ISS aggressive scale (3) Leukocytosis Code(s): D72.829 - ELEVATED WHITE BLOOD CELL COUNT, UNSPECIFIED Status: Acute Comment: Improved, Bactrim daily, concomitant steroid effect (4) Pulmonary fibrosis Code(s): J84.10 - PULMONARY FIBROSIS, UNSPECIFIED Status: Chronic (5) Hilar adenopathy Code(s): R59.0 - LOCALIZED ENLARGED LYMPH NODES Status: Chronic (6) Pneumonia Code(s): J18.9 - PNEUMONIA, UNSPECIFIED ORGANISM Status: Acute Qualifiers: Pneumonia type: due to unspecified organism Laterality: bilateral Comment: Continue Bactrim, Solumedrol 40mg IV daily, Duonebs - Plan plan discussed w/ family, continue antibiotics, PT/OT, medical social worker, respiratory therapy, out of bed/ambulate, DVT proph w/SCDs Stable currently -: Saline lock IVF's -: Increase Levemir 30u sc HS -: Speech to re-eval swallowing function -: Nutritional support with Jevity 1.2 * CM for dispo planning
--- NOTE | 2017-01-15 18:32 | PRG ---
DATE OF SERVICE: 01/15/2017 Mr. Shepherd's biopsy was suggestive of a nonspecific interstitial pneumonitis versus hypersensitivity pneumonitis. I will send hypersensitivity pneumonitis panel. At this point in time, he just needs physical therapy. Continue to work with his swallowing. We will switch him to p.o. steroids. Ther e is no mention from finding suggestive of usual interstitial pneumonitis. There was bullous diseas e present and clearly should avoid tobacco products.
[2017-01-15] MEDS: Insulin Detemir 100 UNITS/ML 30 UNITS in Pre-Filled Syringe 1 EACH SC SCH (20:54)
[2017-01-16] MEDS: Diabetic Tussin 200 MG/10 ML UDCUP PER TUBE SCH ×4 (00:04→17:21)
[2017-01-16] MEDS: Nystatin 500,000 UNITS/5 ML UDCUP SSW SCH ×4 (08:38→20:29)
[2017-01-16] MEDS: predniSONE 20 MG TAB PO SCH (08:38)
[2017-01-16] MEDS: Enoxaparin Sodium 40 MG/0.4 ML SYRINGE SC SCH (08:38)
[2017-01-16] MEDS: Famotidine/PF 20 mg/2ml Vial IVPB SCH ×2 (08:38→20:30)
[2017-01-16] MEDS: Sulfameth/Trimethoprim DS 800-160mg TAB PO SCH ×2 (08:39→20:29)
--- NOTE | 2017-01-16 13:38 | PRG ---
DATE OF SERVICE: 01/16/2017 Matias Shepherd is ambulating without difficulty according to his . PHYSICAL EXAMINATION: VITAL SIGNS: He is afebrile, heart rate 88, respiratory rate is 18, oximetry is 97%. LUNGS: Remarkable for fine crackles at bases. HEART: Regular rhythm. ABDOMEN: Soft. LABORATORY: No new lab. 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 PLAN: Continue supportive care with prednisone. His inquired about swallowing. I will defer to Speech Pathology. He is approaching a point where he may be a candidate to discharge home. He was treated for bronchitis perioperatively. The pathogen isolated on culture was MRSA, but the G bria stain was suggestive that this was more polymicrobial. In any event, he is improving on sulfa, hopefully he will be a candidate for discharge home before too long. It would be nice if he was swa llowing adequately well prior to discharge.
[2017-01-16] MEDS: HumaLOG 300 UNITS/3 ML VIAL SC PRN ×2 (13:46→17:22)
--- NOTE | 2017-01-16 15:13 | PDOC.PN ---
- Subjective Encounter Start Date: 01/16/17 Encounter Start Time: 15:00 Subjective: No new complaints other than wants to eat and drink by mouth. NPO on -: current Jevity 1.2 TF's. Overall feeling stronger, ambulating short -: distances with PT - Objective MAR Reviewed: Yes Vital Signs & Weight: Vital Signs (12 hours) Temp Pulse Resp BP BP Pulse Ox 01/16/17 12:10 88 18 93/67 97 01/16/17 11:30 101 H 18 96 01/16/17 08:00 97.9 F 88 18 01/16/17 07:39 97.9 F 94 18 102/69 92 L 01/16/17 05:58 85 18 96 Weight Admit Weight 178 lb 8 oz Weight 156 lb 7 oz Most Recent Monitor Data Heart Rate from ECG 72 NIBP 101/71 NIBP BP-Mean 79 Respiration from ECG 26 SpO2 97 I&O: 01/15/17 01/16/17 01/17/17 06:59 06:59 06:59 Intake Total 360 2470 30 Output Total 3235 4700 Balance -9045 -2230 30 Result Diagrams: 01/14/17 04:14 01/14/17 04:14 Additional Labs: Accuchecks 01/16/17 01/16/17 01/16/17 12:09 05:33 00:32 POC Glucose 202 H 137 H 191 H 01/15/17 01/15/17 20:13 17:02 POC Glucose 193 H 144 H Laboratory Tests 01/09/17 01/10/17 01/11/17 04:47 04:54 01:19 WBC 39.6 H 46.1 H* 34.8 H Magnesium 01/13/17 01/16/17 04:34 04:22 WBC Magnesium 1.8 2.1 Phys Exam - Physical Examination Constitutional: NAD HEENT: PERRLA, oral pharynx no lesions Neck: no JVD, supple Respiratory: no wheezing, clear to auscultation bilateral Cardiovascular: RRR PEG site CDI Gastrointestinal: soft, non-tender, no distention, positive bowel sounds Musculoskeletal: no edema, pulses present Neurological: normal sensation, moves all 4 limbs Skin: normal turgor, cap refill <2 seconds Dx/Plan (1) Acute and chronic respiratory failure Code(s): J96.20 - ACUTE AND CHR RESP FAILURE, UNSP W HYPOXIA OR HYPERCAPNIA Status: Acute Qualifiers: Respiratory failure complication: unspecified whether with hypoxia or hypercapnia Qualified Code(s): J96.20 - Acute and chronic respiratory failure , unspecified whether with hypoxia or hypercapnia Comment: Stabilized currently, continue supportive measures, O2 prn (2) Hyperglycemia Code(s): R73.9 - HYPERGLYCEMIA, UNSPECIFIED Status: Acute Comment: Likely due to steroid effect, increase Levemir 30u sc HS, ISS aggressive scale (3) Leukocytosis Code(s): D72.829 - ELEVATED WHITE BLOOD CELL COUNT, UNSPECIFIED Status: Acute Comment: Improved, Bactrim daily, concomitant steroid effect (4) Pulmonary fibrosis Code(s): J84.10 - PULMONARY FIBROSIS, UNSPECIFIED Status: Chronic (5) Hilar adenopathy Code(s): R59.0 - LOCALIZED ENLARGED LYMPH NODES Status: Chronic (6) Pneumonia Code(s): J18.9 - PNEUMONIA, UNSPECIFIED ORGANISM Status: Acute Qualifiers: Pneumonia type: due to unspecified organism Laterality: bilateral Comment: Continue Bactrim, Prednisone 40mg daily, Duonebs - Plan plan discussed w/ family, continue antibiotics, PT/OT, social work instructor, speech therapy, respiratory therapy, out of bed/ambulate, DVT proph w/SCDs Stable overall -: Continue pulmonary supportive measures -: Prednisone 40mg daily -: Speech re-evaluation for dysphagia -: Continue Nutritional support pending re-eval by AUTO BODY REPAIR TECHNICIAN * .
[2017-01-16] MEDS: Scopolamine 1.5 mg/72 hour Patch TD SCH (17:21)
[2017-01-16] MEDS: Insulin Detemir 100 UNITS/ML 30 UNITS in Pre-Filled Syringe 1 EACH SC SCH (20:30)
[2017-01-17] MEDS: Diabetic Tussin 200 MG/10 ML UDCUP PER TUBE SCH ×5 (00:22→23:21)
[2017-01-17] MEDS: Nystatin 500,000 UNITS/5 ML UDCUP SSW SCH ×4 (08:26→20:34)
[2017-01-17] MEDS: Famotidine/PF 20 mg/2ml Vial IVPB SCH ×2 (08:26→20:34)
[2017-01-17] MEDS: Enoxaparin Sodium 40 MG/0.4 ML SYRINGE SC SCH (08:27)
[2017-01-17] MEDS: Sulfameth/Trimethoprim DS 800-160mg TAB PO SCH ×2 (08:27→20:34)
[2017-01-17] MEDS: predniSONE 20 MG TAB PO SCH (08:27)
--- NOTE | 2017-01-17 15:51 | PDOC.PN ---
- Subjective Encounter Start Date: 01/17/17 Encounter Start Time: 10:50 Subjective: breathing better -: wants to eat -: has hoarseness of voice - Objective MAR Reviewed: Yes Vital Signs & Weight: Vital Signs (12 hours) Temp Pulse Resp BP BP Pulse Ox 01/17/17 12:53 85 20 01/17/17 09:01 97.8 F 81 18 93/67 99 01/17/17 08:00 97.8 F 81 18 99 01/17/17 06:35 93 L 01/17/17 06:34 85 24 H 01/17/17 04:00 98.1 F 90 18 94/65 92 L Weight Admit Weight 178 lb 8 oz Weight 152 lb 2 oz Most Recent Monitor Data Heart Rate from ECG 72 NIBP 101/71 NIBP BP-Mean 79 Respiration from ECG 26 SpO2 97 I&O: 01/16/17 01/17/17 01/18/17 06:59 06:59 06:59 Intake Total 2470 180 30 Output Total 4700 Balance -2230 180 30 Result Diagrams: 01/14/17 04:14 01/14/17 04:14 Additional Labs: Accuchecks 01/17/17 01/17/17 01/16/17 11:03 04:39 19:50 POC Glucose 120 H 113 H 138 H 01/16/17 16:08 POC Glucose 222 H Phys Exam - Physical Examination HEENT: PERRLA, moist MMs Neck: no JVD, supple Respiratory: no wheezing, no rales rhonchi+ Cardiovascular: RRR, no significant murmur Gastrointestinal: soft, non-tender, positive bowel sounds Musculoskeletal: no edema, pulses present Neurological: non-focal, moves all 4 limbs Psychiatric: A&O x 3 Dx/Plan (1) Pneumonia Code(s): J18.9 - PNEUMONIA, UNSPECIFIED ORGANISM Status: Acute Qualifiers: Pneumonia type: due to unspecified organism Laterality: bilateral Comment: Continue Bactrim, Prednisone 40mg daily, Duonebs (2) Acute and chronic respiratory failure Code(s): J96.20 - ACUTE AND CHR RESP FAILURE, UNSP W HYPOXIA OR HYPERCAPNIA Status: Acute Qualifiers: Respiratory failure complication: unspecified whether with hypoxia or hypercapnia Qualified Code(s): J96.20 - Acute and chronic respiratory failure , unspecified whether with hypoxia or hypercapnia Comment: Stabilized currently, continue supportive measures, O2 prn (3) HTN (hypertension) Code(s): I10 - ESSENTIAL (PRIMARY) HYPERTENSION Status: Acute Qualifiers: Hypertension type: essential hypertension Qualified Code(s): I10 - Essential (primary) hypertension (4) Hyperglycemia Code(s): R73.9 - HYPERGLYCEMIA, UNSPECIFIED Status: Acute Comment: due to steroid effect (5) Dyslipidemia Code(s): E78.5 - HYPERLIPIDEMIA, UNSPECIFIED Status: Chronic (6) Pulmonary fibrosis Code(s): J84.10 - PULMONARY FIBROSIS, UNSPECIFIED Status: Chronic Comment: had wedge bx on 01/03/2017 (7) Dysphagia Code(s): R13.10 - DYSPHAGIA, UNSPECIFIED Status: Acute Comment: s/p peg 01/10, is resolving - Plan fluconazole for suspected thrush with hoarseness -: has been cleared by speech for pureed diet -: to mobilize in hallway as tolerated -: taper steroids per pulm advice -: peg bolus feeding as he is tolerating oral diet now * . Review of Systems - Medications/Allergies Allergies/Adverse Reactions: Allergies Allergy/AdvReac Type Severity Reaction Status Date / Time No Known Drug Allergies Allergy Verified 12/30/16 02:10 Medications: Current Medications Acetaminophen (Tylenol) 650 mg PO Q4H PRN PRN Reason: Headache/Fever or Pain Last Admin: 01/14/17 10:21 Dose: 650 mg Acetaminophen (Tylenol) 650 mg MA Q6H PRN PRN Reason: Fever > 101 Last Admin: 01/11/17 01:05 Dose: 650 mg Albuterol/Ipratropium (Duoneb) 3 ml NEB Q2H PRN PRN Reason: SOB &/or Wheezing Last Admin: 12/30/16 04:19 Dose: 3 ml Albuterol/Ipratropium (Duoneb) 3 ml NEB [id number] NOEMI Last Admin: 01/17/17 12:53 Dose: 3 ml Dextrose/Water (Dextrose 50%) 25 gm SLOW IVP PRN PRN PRN Reason: Hypoglycemia Enoxaparin Sodium (Lovenox) 40 mg SC DAILY NOEMI Last Admin: 01/17/17 08:27 Dose: 40 mg Famotidine (Pepcid) 20 mg IVPB BID NOEMI Last Admin: 01/17/17 08:26 Dose: 20 mg Fluconazole (Diflucan) 100 mg PO DAILY [facility] Glucagon (Glucagon) 1 mg IM PRN PRN PRN Reason: Hypoglycemia Guaifenesin (Organ-I Nr) 400 mg PO Q4H PRN PRN Reason: Cough Guaifenesin (Robitussin Sf) 600 mg PER TUBE Q6HR [facility] Last Admin: 01/17/17 12:00 Dose: Not Given Potassium Chloride 40 meq/ (Sodium Chloride) 270 mls @ 135 mls/hr IVPB ASDIR PRN PRN Reason: FOR SERUM K+ 2.5 - 3.5 Last Admin: 01/08/17 06:45 Dose: 270 mls Potassium Chloride 40 meq/ (Device) 100 mls @ 50 mls/hr IVPB ASDIR PRN PRN Reason: FOR SERUM K+ 2.5 - 3.5 Magnesium Sulfate 1 gm/ Sodium (Chloride) 102 mls @ 102 mls/hr IV PRN PRN PRN Reason: MAG LEVEL 1.4 - 2.0 Magnesium Sulfate 2 gm/ Device 100 mls @ 100 mls/hr IVPB ASDIR PRN PRN Reason: MAGNESIUM < 1.4 Potassium Phosphate 9 mmol/ (Sodium Chloride) 103 mls @ 25.75 mls/hr IVPB ASDIR PRN PRN Reason: Phosphate 1.0-1.8 Potassium Phosphate 12 mmol/ (Sodium Chloride) 254 mls @ 63.5 mls/hr IV ASDIR PRN PRN Reason: Serum phosphate 0.5-0.9 Potassium Phosphate 15 mmol/ (Sodium Chloride) 255 mls @ 63.75 mls/hr IV ASDIR PRN PRN Reason: Serum Phos < 0.5 Dextrose/Water (D5w) 1,000 mls @ 0 mls/hr IV .Q0M PRN; As Directed PRN Reason: Hypoglycemia Insulin Detemir 30 units/ (Miscellaneous Medication) 0.3 mls @ 0 mls/hr SC [facility] Last Admin: 01/16/17 20:30 Dose: 0.3 mls Insulin Human Lispro (Humalog) 0 units SC .AGGRESSIVE SLIDING PRN PRN Reason: Aggressive Correctional Scale Last Admin: 01/16/17 17:22 Dose: 6 unit Insulin Human Lispro (Humalog) 0 units SC .BEDTIME SLIDING SC PRN PRN Reason: Bedtime Correctional Scale Last Admin: 01/15/17 00:59 Dose: 2 unit Magnesium Oxide (Magnesium Oxide) 400 mg PO BIDPRN PRN PRN Reason: FOR SERUM MAG 1.4 - 2.0 Last Admin: 01/14/17 05:59 Dose: 400 mg Magnesium Oxide (Magnesium Oxide) 800 mg PO PRN PRN PRN Reason: FOR SERUM MAG < 1.4 Miscellaneous Medication (Phos-Nak) 1 pkt PO TIDPRN PRN PRN Reason: FOR PHOS LEVEL 1.0 - 1.8 Miscellaneous Medication (Phos-Nak) 2 pkt PO TIDPRN PRN PRN Reason: FOR PHOS LEVEL 0.5 - 1.0 Ccu Electrolyte (Replacement Protocol) 0 each FS PRN PRN PRN Reason: FOR ELECTROLYTE REPLACEMENT Nystatin (Mycostatin) 500,000 units SSW QID [facility] Last Admin: 01/17/17 13:15 Dose: 500,000 units Ondansetron HCl (Zofran) 4 mg IVP Q6H PRN PRN Reason: Nausea/Vomiting Last Admin: 12/31/16 05:21 Dose: 4 mg Potassium Chloride (K-Dur) 40 meq PO ASDIR PRN PRN Reason: FOR SERUM K+ 2.5 - 3.5 Potassium Chloride (Klor-Con) 40 meq PER TUBE ASDIR PRN PRN Reason: FOR SERUM K+ 2.5-3.5 Prednisone (Prednisone) 40 mg PO QAM-WM [facility] Last Admin: 01/17/17 08:27 Dose: 40 mg Scopolamine (Transderm Scop) 1.5 mg TD Q3D [facility] Last Admin: 01/16/17 17:21 Dose: 1.5 mg Sodium Chloride (Flush - Normal Saline) 10 ml IVF Q12HR [facility] Last Admin: 01/17/17 08:28 Dose: 10 ml Sodium Chloride (Flush - Normal Saline) 10 ml IVF PRN PRN PRN Reason: Saline Flush Last Admin: 01/16/17 08:41 Dose: 10 ml Trimethoprim/Sulfamethoxazole (Bactrim Ds) 1 tab PO BID [facility] Last Admin: 01/17/17 08:27 Dose: 1 tab
[2017-01-17] MEDS: HumaLOG 300 UNITS/3 ML VIAL SC PRN (17:29)
--- NOTE | 2017-01-17 18:33 | PRG ---
DATE OF SERVICE: 01/17/2017 SUBJECTIVE: Mr. Shepherd feels great. He has had no complaints. OBJECTIVE: VITAL SIGNS: He is afebrile, heart rate is 80, respiratory rate is 18, oximetry is 99 on room air, and blood pressure 94/67. LUNGS: Remarkable for fine crackles at his bases. CARDIOVASCULAR: Regular rhythm. ABDOMEN: Soft. IMPRESSION: Nonspecific interstitial pneumonitis versus hypersensitivity pneumonitis, the hypersens itivity panel is pending. He is significantly improved clinically. His hypoxemia has resolved. I doubt this is all infection mediated, given that he had an abnormal radiograph during the summertime. We will finish his antib iotics and continue with steroids for slow taper. I have given them my phone number. I talked to the daughter by phone and answered all of her questi ons and explained everything that has happened today it again. She appears to have a pretty good un derstanding of what has been going on for Mr. Shepherd. He will go home on 40 mg of prednisone a day until he follows up with me in 2-3 weeks. His Bactrim can probably be discontinued at discharge.
[2017-01-17] MEDS: Insulin Detemir 100 UNITS/ML 30 UNITS in Pre-Filled Syringe 1 EACH SC SCH (20:35)
[2017-01-18] MEDS: Diabetic Tussin 200 MG/10 ML UDCUP PER TUBE SCH ×2 (05:11→12:48)
[2017-01-18 08:51] VITALS: BP 94/66; TEMP 98.2
--- NOTE | 2017-01-18 08:52 | PRG ---
DATE OF SERVICE: 01/18/2017 PHYSICAL EXAMINATION: VITAL SIGNS: Afebrile, heart rate 81, respiratory rate 20, oximetry is 98, blood pressure is 99/68. He has been cleared by Speech Pathology for a pureed diet. He needs 40 mg of prednisone a day until he sees me in 2-3 weeks and we will begin slowly tapering s teroids. Hypersensitivity pneumonitis panel was ordered, I do not see any results in the computer yet. We should be able to discontinue antibiotics at discharge. I encouraged the daughter to call me richard gamboa there be any problems after discharge.
[2017-01-18] MEDS ORDERED: Fluconazole 100 MG TAB PO SCH (09:00)
[2017-01-18] MEDS: predniSONE 20 MG TAB PO SCH (09:24)
[2017-01-18] MEDS: Famotidine/PF 20 mg/2ml Vial IVPB SCH (09:25)
[2017-01-18] MEDS: Sulfameth/Trimethoprim DS 800-160mg TAB PO SCH (09:25)
[2017-01-18] MEDS: Nystatin 500,000 UNITS/5 ML UDCUP SSW SCH ×2 (09:25→12:48)
[2017-01-18] MEDS: Enoxaparin Sodium 40 MG/0.4 ML SYRINGE SC SCH (09:26)
[2017-01-18 10:30] VITALS: BMI 25.3
--- NOTE | 2017-01-18 13:40 | PDOC.PN ---
- Subjective Encounter Start Date: 01/18/17 Encounter Start Time: 09:00 Subjective: feels better, no sob -: is ambulating in room -: is tolerating oral diet now - Objective MAR Reviewed: Yes Vital Signs & Weight: Vital Signs (12 hours) Temp Pulse Resp BP BP Pulse Ox 01/18/17 08:00 98.2 F 95 20 94/66 99 01/18/17 06:34 81 20 98 01/18/17 04:00 97.7 F 86 18 99/68 98 Weight Admit Weight 178 lb 8 oz Weight 152 lb 2 oz Most Recent Monitor Data Heart Rate from ECG 72 NIBP 101/71 NIBP BP-Mean 79 Respiration from ECG 26 SpO2 97 I&O: 01/17/17 01/18/17 01/19/17 06:59 06:59 06:59 Intake Total 180 30 270 Balance 180 30 270 Result Diagrams: 01/14/17 04:14 01/14/17 04:14 Additional Labs: Accuchecks 01/18/17 01/18/17 01/17/17 11:28 04:28 19:53 POC Glucose 105 67 L 138 H 01/17/17 16:33 POC Glucose 229 H Phys Exam - Physical Examination HEENT: PERRLA, sclera anicteric Neck: no JVD, supple Respiratory: no wheezing, no rales Cardiovascular: RRR, no significant murmur Gastrointestinal: soft, non-tender, positive bowel sounds Musculoskeletal: no edema, pulses present Neurological: non-focal, moves all 4 limbs Psychiatric: A&O x 3 Dx/Plan (1) Pneumonia Code(s): J18.9 - PNEUMONIA, UNSPECIFIED ORGANISM Status: Acute Qualifiers: Pneumonia type: due to unspecified organism Laterality: bilateral Comment: Prednisone 40mg daily, Dujovanbs (2) Acute and chronic respiratory failure Code(s): J96.20 - ACUTE AND CHR RESP FAILURE, UNSP W HYPOXIA OR HYPERCAPNIA Status: Resolved Qualifiers: Respiratory failure complication: unspecified whether with hypoxia or hypercapnia Qualified Code(s): J96.20 - Acute and chronic respiratory failure , unspecified whether with hypoxia or hypercapnia (3) HTN (hypertension) Code(s): I10 - ESSENTIAL (PRIMARY) HYPERTENSION Status: Chronic Qualifiers: Hypertension type: essential hypertension Qualified Code(s): I10 - Essential (primary) hypertension (4) Hyperglycemia Code(s): R73.9 - HYPERGLYCEMIA, UNSPECIFIED Status: Acute Comment: due to steroid effect (5) Dyslipidemia Code(s): E78.5 - HYPERLIPIDEMIA, UNSPECIFIED Status: Chronic (6) Pulmonary fibrosis Code(s): J84.10 - PULMONARY FIBROSIS, UNSPECIFIED Status: Chronic Comment: had wedge bx on 01/03/2017 (7) Dysphagia Code(s): R13.10 - DYSPHAGIA, UNSPECIFIED Status: Acute Comment: s/p peg 01/10, is resolving - Plan hemostable -: dc pt home -: steroid taper -: to f/u with as adv -: is eating orally well now * .
--- NOTE | 2017-01-18 18:40 | DIS ---
DATE OF ADMISSION: 12/29/2016 DATE OF DISCHARGE: 01/18/2017 DISCHARGE DISPOSITION: Home. PRIMARY DISCHARGE DIAGNOSES: 1. Bilateral pneumonia. 2. Acute on chronic respiratory failure, resolved. 3. Dysphagia with percutaneous endoscopic gastrostomy tube, resolving. 4. Pulmonary fibrosis, which is suspected. 5. Hypertension. 6. Steroid induced hyperglycemia. 7. Dyslipidemia. PROCEDURES DONE DURING HOSPITALIZATION: CT angio of chest done on the day of admission showed no pulmonary embolus. There was ground glass opacity seen with severe emphysematous changes. High resolution noncontrast CT chest done, was suggestive of chronic obstructive pulmonary disease with scattered areas of traction bronchiectasis. The patient has had wedge biopsy of right upper lobe and right middle lobe done on 01/03/[address] Alec Duckworth. Histopathology shows dense interstitial lymphoplasmacytic infiltrates and patchy foci of organizing pneumonia in the background of severe emphysema. There was no malignancy identified, has had PEG tube placed on 01/10/2017 for dysphagia. He had a white count of up to 46 on 01/10/2017, H\T\H 14 and 41 with platelet count of 203, BELEN screen was positive, antismooth muscle antibody was positive at 36. C4 complement was low at 5. DISCHARGE MEDICATIONS: Diflucan 100 mg p.o. daily for 3 days for oral thrush, aspirin 325 mg p.o. daily, Levemir 30 units subcu at bedtime, DuoNeb q.6 hourly , prednisone 40 mg p.o. daily as prescribed by Dr. Pérez, and gemfibrozil 600 mg p.o. twice daily. ALLERGIES: No known drug allergies. DISCHARGE PLAN: The patient to follow up with Dr. Bhatia in 2-3 weeks and primary care physician in 1 week. BRIEF COURSE DURING HOSPITALIZATION: The patient initially got admitted on 12/2016 with complaints of cough, fever and had a CT angio, which was suspicious for pneumonia. He has had consultation with Dr. Bhatia for Pulmonology. Subsequently, the patient has had CT high resolution CAT scan for the lungs and a wedge biopsy of the lungs were done as well. The findings of which I have mentioned above. During the course of his stay, the patient became deconditioned and developed dysphagia. He has had a PEG tube placed for nutrition. Prior to discharge, the patient is tolerating oral solid diet. He is still on tapering prednisone. At the time of discharge, he is on 40 mg of prednisone and has been given tapering dose prescription by Dr. Bhatia. He needs to follow up with Dr. Bhatia in 2-3 weeks. Prior to discharge, he is ambulating. The patient has had multiple chest x-rays done during his prolonged stay here. Please see a [id number] documentation on [facility] for the day of discharge. [facility]
[2017-01-21 10:12] LABS: Aspergillus fumigatus Negative (Negative); Aureobasidium pullalans IgG Negative (Negative); Micropolyspora faeni Negative (Negative); Pigeon Droppings IgG Negative (Negative); T sacchari Negative (Negative); T vulgaris Negative (Negative)
== END 2017-01-18 13:07 | disposition home or self-care (01) | DRG 163 ==
LOC: ERS 21:15 → 2NO 23:04 → CCU 01-03 08:11 → T4-A 01-14 14:35
PROVIDERS: ADMIT Internal Medicine; ATTEND Internal Medicine
PROC: 5A09557 Assistance with Respiratory Ventilation, Greater than 96 Consecutive Hours, Continuous Positive Airway Pressure (ICD-10-PCS; 2016-12-29)
PROC: 0BBD0ZX Excision of Right Middle Lung Lobe, Open Approach, Diagnostic (ICD-10-PCS; 2017-01-03)
PROC: 0BBC0ZX Excision of Right Upper Lung Lobe, Open Approach, Diagnostic (ICD-10-PCS; 2017-01-03)
PROC: 5A1945Z Respiratory Ventilation, 24-96 Consecutive Hours (ICD-10-PCS; 2017-01-03)
PROC: 0BH17EZ Insertion of Endotracheal Airway into Trachea, Via Natural or Artificial Opening (ICD-10-PCS; 2017-01-03)
PROC: 0BP1XDZ Removal of Intraluminal Device from Trachea, External Approach (ICD-10-PCS; 2017-01-06)
PROC: 0DH64UZ Insertion of Feeding Device into Stomach, Percutaneous Endoscopic Approach (ICD-10-PCS; principal; 2017-01-10)
DX: J18.9 Pneumonia, unspecified organism (principal); J96.21 Acute and chronic respiratory failure with hypoxia; N17.9 Acute kidney failure, unspecified; E87.0 Hyperosmolality and hypernatremia; R13.12 Dysphagia, oropharyngeal phase; J84.10 Pulmonary fibrosis, unspecified; J95.821 Acute postprocedural respiratory failure; E86.0 Dehydration; I10 Essential (primary) hypertension; E78.5 Hyperlipidemia, unspecified; R79.89 Other specified abnormal findings of blood chemistry; R73.9 Hyperglycemia, unspecified; R59.0 Localized enlarged lymph nodes; Z87.891 Personal history of nicotine dependence; Z82.49 Family history of ischemic heart disease and other diseases of the circulatory system; T38.0X5A Adverse effect of glucocorticoids and synthetic analogues, initial encounter; R91.1 Solitary pulmonary nodule; Y84.8 Other medical procedures as the cause of abnormal reaction of the patient, or of later complication, without mention of misadventure at the time of the procedure; Y92.234 Operating room of hospital as the place of occurrence of the external cause
CPT/HCPCS: 36415; 36416; 71010; 71250; 71275; 74000; 80048; 82553; 82805; 83520; 83605; 83690; 83735; 83880; 84484; 85025; 85610; 85730; 86160; 86225; 86235; 86331; 86376; 86430; 86431; 86602; 86606; 86671; 87040; 87070; 87077; 87086; 87186; 87205; 88307; 88325; 93005; 94002; 94003; 94640; 96365; A4216; G8978-GP-CN; G8979-GP-CJ; G8996-GN-CL; G8996-GN-CM; G8996-GN-CN; G8997-GN-CK; G8997-GN-CM; J0456; J0670; J0692; J0696; J1100; J1630; J1642; J1650; J1815; J1940; J2001; J2250; J2405; J2543; J2704; J2920; J3010; J3370; J3480; J7042; J7050; J7506; J7620; S0028

== ENCOUNTER 2017-02-13 07:22 | Outpatient (CLI) | payer MEDICAID ==
--- NOTE | 2017-02-13 07:58 | RAD ---
CHEST PA AND LATERAL: HISTORY: A 71-year-old male with other specified interstitial pulmonary disease. COMPARISON: 01/14/2017 FINDINGS: Bilateral linear and interstitial parenchymal changes are noted, particularly in the perihilar regio ns, stable from the prior 01/14/2017 study. No new confluent process. Heart size is normal. IMPRESSION: Stable chronic interstitial lung disease. No new process. No evidence for pneumonia. Mild bilater al hyperinflation. POS: [facility]
== END 2017-02-13 07:23 | disposition home or self-care (01) ==
LOC: RAD 07:22
PROVIDERS: ATTEND Thoracic Surgery (Cardiothoracic Vascular Surgery)
DX: J84.89 Other specified interstitial pulmonary diseases (principal)
CPT/HCPCS: 71020

== ENCOUNTER 2017-02-25 11:08 | Outpatient (CLI) | payer OTHER ==
--- NOTE | 2017-02-28 18:33 | RAD ---
MODIFIED BARIUM SWALLOW 02/28/17 INDICATION: Dysphagia with feeding difficulties, R13.10 and R63.3. TECHNIQUE: Modified barium swallow is performed at the guidance of the speech therapy department. Fluoroscopic time was noted at 30 seconds. Total exposure 1.28 mGy*m2. Please see their dictation for full details concerning the materials administered. No episodes of tracheal aspiration or penetration was demonstrated. IMPRESSION: No evidence of tracheal aspiration or penetration demonstrated. POS: [facility]
== END 2017-02-25 11:09 | disposition home or self-care (01) ==
PROVIDERS: ATTEND Internal Medicine Critical Care Medicine
DX: R13.10 Dysphagia, unspecified (principal); R63.3 Feeding difficulties
CPT/HCPCS: 74230; G8996-GN-CI; G8997-GN-CI; G8998-GN-CI

== ENCOUNTER 2017-03-26 15:11 | Outpatient (CLI) | payer OTHER ==
--- NOTE | 2017-03-26 17:05 | ULT ---
RIGHT LOWER EXTREMITY VENOUS DOPPLER ULTRASOUND: 03/26/17 HISTORY: Pain, swelling, edema, assess for DVT. TECHNIQUE: Multiplanar patel scale, sonographic imaging of the venous structures of the right lower extremity obt ained with color flow and spectral analysis. FINDINGS: The right common femoral vein, profunda femoral vein, femoral vein, popliteal vein, and posterior tib ial vein are filled with thrombus and expanded. These veins demonstrate no significant blood flow, co nsistent with extensive occlusive DVT. The greater saphenous vein is patent on the right. IMPRESSION: Extensive occlusive deep venous thrombosis throughout the right lower extremity. The performing shell machine operator, Dorita, relayed this information to Dr. Bhatia at the time of interpreta tion. POS: [facility]
== END 2017-03-26 15:12 | disposition home or self-care (01) ==
LOC: SCSULT 15:11
PROVIDERS: ATTEND Internal Medicine Critical Care Medicine
DX: R60.0 Localized edema (principal); I82.401 Acute embolism and thrombosis of unspecified deep veins of right lower extremity

== ENCOUNTER 2017-03-26 18:01 | Inpatient (IN) | payer MEDICAID, SELFPAY ==
[2017-03-26] MEDS ORDERED: Temazepam 15 MG CAP PO PRN (19:41)
[2017-03-26] MEDS ORDERED: Enoxaparin Sodium 80 MG/0.8 ML SYRINGE SC SCH (19:45)
[2017-03-26 19:58] VITALS: BMI 25.0
[2017-03-26 20:03] LABS: #Eosinphils 0.1 thou/uL (0.0-0.7); #Lymphocytes 3.2 thou/uL (1.20-3.40); #Monocytes 0.9 thou/uL (0.11-0.59); #Neutrophils 13.9 thou/uL (1.40-6.50); %Basophils 0.1 % (0.0-1.0); %Eosinophils 0.6 % (0.0-10.0); %Lymphocytes 17.5 % (21.0-51.0); %Monocytes 4.7 % (0.0-10.0); Hematocrit 43.9 % (42.0-52.0); Mean Platelet Volume 6.5 fL (7.4-10.4); Red Blood Cell (RBC) Count 4.64 mill/uL (4.70-6.10)
[2017-03-26 20:11] LABS: PTT 26.1 SEC (22.9-36.1)
[2017-03-26] MEDS ORDERED: Dextrose 5% in Water 1,000 ML IV PRN (20:23)
[2017-03-26] MEDS ORDERED: Dextrose 50% Abboject 50 ML SYRINGE IVP PRN (20:23)
[2017-03-26 20:24] LABS: Anion Gap 14 mmol/L (10-20); BUN (Urea Nitrogen) 13 mg/dL (8.4-25.7); Calc. Creatinine Clearance 105 mL/min (70-130); Calcium 9.3 mg/dL (7.8-10.44); Carbon Dioxide 22 mmol/L (23-31); Chloride 107 mmol/L (98-107); Estimated GFR-MDRD Greater than 90
[2017-03-26] MEDS: Sodium Chloride 0.9% 1,000 ML IV SCH (21:16)
--- NOTE | 2017-03-27 05:46 | HP ---
Mr. Shepherd is a patient of mine that had a long hospitalization earlier this year. He had been diagno sed with diffuse interstitial infiltrates during the summertime, failed to keep followup. He came back in with worsening respiratory distress, subsequently had a surgical lung biopsy. This w as sent to the [facility] and after they reviewed his CAT scan and his pathology, it was felt that hector nair most likely had nonspecific interstitial pneumonitis. He required several days of mechanical venti lation after his surgery. He also had severe swallowing dysfunction after surgery for some reason th at led to placement of a PEG. This was removed last week after he passed the swallowing evaluation. He has been on tapering doses of prednisone, was supposed to be on prednisone 20 mg until he saw me t miriam, but he ran out at some point somehow, and my partner called in a week's worth of prednisone las t week. He had no complaints respiratory related today, but was complaining of his right leg hurting when he stood up. He did not really have much edema in his legs, but did have venous distention below the kn ee. So he was sent for Doppler ultrasound of his right lower extremity, which showed a clot subseque ntly and is being admitted for treatment of this. When he was on high dose steroids, he required insulin. PAST MEDICAL HISTORY: Otherwise remarkable for liver disorders, hypertension. He is on no hypertens ion medications at this time. SOCIAL HISTORY: He is a nonsmoker, nondrinker. He smoked many years ago. He has no drug allergies. PHYSICAL EXAMINATION: VITAL SIGNS: In the office, he is 130/80, pulse 80, respiratory rate is 18. HEENT: Pupils are equal. Sclerae is anicteric. NECK: Supple. No lymphadenopathy. LUNGS: Clear. HEART: Regular rhythm. S1 and S2 are normal. ABDOMEN: Soft and nontender. EXTREMITIES: Without clubbing, cyanosis or edema. IMPRESSION: 1. Deep venous thrombosis. 2. Nonspecific interstitial pneumonitis. 3. History of diabetes. 4. We will have Accu-Cheks and sliding scale. 5. History of hypertension. This will just be monitored, must be started on Lovenox immediately.
[2017-03-27 07:36] LABS: #Basophils 0.1 thou/uL (0.0-0.2); #Eosinphils 0.5 thou/uL (0.0-0.7); #Lymphocytes 4.9 thou/uL (1.20-3.40); #Monocytes 1.5 thou/uL (0.11-0.59); %Basophils 0.8 % (0.0-1.0); %Eosinophils 3.1 % (0.0-10.0); %Lymphocytes 30.6 % (21.0-51.0); %Monocytes 9.3 % (0.0-10.0); Hematocrit 41.9 % (42.0-52.0); Mean Platelet Volume 6.6 fL (7.4-10.4); Red Blood Cell (RBC) Count 4.42 mill/uL (4.70-6.10)
[2017-03-27 07:55] LABS: Anion Gap 12 mmol/L (10-20); BUN (Urea Nitrogen) 15 mg/dL (8.4-25.7); Calc. Creatinine Clearance 102 mL/min (70-130); Calcium 8.4 mg/dL (7.8-10.44); Carbon Dioxide 23 mmol/L (23-31); Chloride 108 mmol/L (98-107); Estimated GFR-MDRD Greater than 90; PTT 28.3 SEC (22.9-36.1); Prothrombin Time 14.7 SEC (12.0-14.7)
[2017-03-27] MEDS ORDERED: FLU VACC TS2017-18 (>65YR) 0.5 ML SYRINGE IM ONE (09:00)
[2017-03-27] MEDS: predniSONE 20 MG TAB PO SCH (09:40)
[2017-03-27] MEDS: Enoxaparin Sodium 80 MG/0.8 ML SYRINGE SC SCH ×2 (09:43→22:16)
--- NOTE | 2017-03-27 19:35 | PRG ---
DATE OF SERVICE: 03/27/2017 Mr. Shepherd says his leg feels better. His hemoglobin is 14 grams. His electrolytes were unremarkable. His blood glucoses have been essentially normal. He still has venous distention in his lower extremity, but not much in the way of edema. IMPRESSION: Subacute extensive right lower extremity deep venous thrombosis. PLAN: Continue with subcutaneous Lovenox for anticoagulation. He will remain at bed rest. He will elevate his leg while he is in bed. He can sit up, but not weightbear.
[2017-03-28] MEDS: predniSONE 20 MG TAB PO SCH (09:06)
[2017-03-28] MEDS: Enoxaparin Sodium 80 MG/0.8 ML SYRINGE SC SCH ×2 (09:09→21:16)
[2017-03-28] MEDS: Sodium Chloride 0.9% 1,000 ML IV SCH (11:02)
[2017-03-28] MEDS: Insulin Regular 300 UNITS/3 ML VIAL SC PRN (12:18)
--- NOTE | 2017-03-28 16:17 | PRG ---
DATE OF SERVICE: 03/28/2017 SUBJECTIVE: Mr. Shepherd did well. He says his legs are feeling better. It is hurting less. A very extensive clot in his right leg, so probably, we will start ambulating him after today. OBJECTIVE: VITAL SIGNS: He is afebrile, heart rate is 80, respiratory rate is in the teens low 20s, oximetry is 99, blood pressure 120/75. LUNGS: Clear. IMPRESSION: 1. Deep vein thrombus on Lovenox. I have an abundance of Xarelto samples in the office, so probably bring him some Xarelto to get him started and then once he goes home over the weekend, he can come s ee me in 3-4 weeks. 2. Nonspecific interstitial pneumonitis on 20 mg a day of prednisone. He can go home on 10 mg a day , but I have already given him a prescription. He may have lost that since I admitted him from the [facility]. He will need to stay on 10 mg a day of prednisone.
[2017-03-29 04:36] LABS: Hematocrit 42.9 % (42.0-52.0)
[2017-03-29 04:58] LABS: Calc. Creatinine Clearance 97 mL/min (70-130); Estimated GFR-MDRD Greater than 90
[2017-03-29] MEDS: Enoxaparin Sodium 80 MG/0.8 ML SYRINGE SC SCH (08:12)
[2017-03-29] MEDS: predniSONE 20 MG TAB PO SCH ×2 (08:12→18:34)
[2017-03-29] MEDS: Insulin Regular 300 UNITS/3 ML VIAL SC PRN (17:33)
--- NOTE | 2017-03-29 18:43 | PRG ---
DATE OF SERVICE: 03/29/2017 SERVICE: Pulmonary Medicine. INTERVAL HISTORY: The patient is doing very well from a respiratory standpoint. His lower extremity swelling is actually much improved. His pain is also much better. He denies any current nausea, vo miting or diarrhea. He remains on bed rest, but we are going to liberalize that today. Otherwise, t here has been no interval change to his condition. PHYSICAL EXAMINATION: VITAL SIGNS: Afebrile, pulse 73, blood pressure 110/65, respirations 18, saturation 93% on room air. GENERAL: The patient is awake, alert, in no apparent distress. LUNGS: Excellent air entry. No prolonged expiratory phase or wheezing. HEART: Normal rate, regular. ABDOMEN: Soft, nontender, nondistended. Bowel sounds positive. MUSCULOSKELETAL: No cyanosis or clubbing. No pitting in the bilateral lower extremities. NEUROLOGIC: Grossly nonfocal. LABORATORY DATA: Hemoglobin 14.2, platelets 347,000 and stable. INR 1.1. Blood sugars ranged from 87-186. Creatinine 0.69. ASSESSMENT: 1. Interstitial lung disease, mild. 2. Deep vein thrombosis. PLAN: The patient will be transitioned over to a direct oral anticoagulant. The Lovenox will be dis continued. I liberalize his activities. He can do anything as tolerated, and will get him into a ch air 3 times daily. Otherwise, supportive care will be continued. Our plans are to discharge him aria e on Xarelto. We will give him enough starter kit and have him returned to clinic to see Dr. Sriram tate 2-3 weeks in the outpatient setting. Accu-Cheks will be discontinued at this time.
[2017-03-29] MEDS: Sodium Chloride 0.9% 1,000 ML IV SCH (20:44)
[2017-03-29] MEDS: Rivaroxaban 15 MG TAB PO SCH (20:44)
[2017-03-30 03:48] LABS: #Basophils 0.1 thou/uL (0.0-0.2); #Eosinphils 0.5 thou/uL (0.0-0.7); #Monocytes 1.6 thou/uL (0.11-0.59); #Neutrophils 8.6 thou/uL (1.40-6.50); %Basophils 0.8 % (0.0-1.0); %Eosinophils 3.1 % (0.0-10.0); %Lymphocytes 31.5 % (21.0-51.0); %Monocytes 10.2 % (0.0-10.0); Hematocrit 43.9 % (42.0-52.0); Mean Platelet Volume 6.6 fL (7.4-10.4); Red Blood Cell (RBC) Count 4.58 mill/uL (4.70-6.10); White Blood Cell (WBC) Count 15.8 thou/uL (4.8-10.8)
[2017-03-30 04:11] LABS: Anion Gap 9 mmol/L (10-20); BUN (Urea Nitrogen) 13 mg/dL (8.4-25.7); Calc. Creatinine Clearance 88 mL/min (70-130); Calcium 8.8 mg/dL (7.8-10.44); Carbon Dioxide 28 mmol/L (23-31); Chloride 105 mmol/L (98-107); Estimated GFR-MDRD Greater than 90; Magnesium 2.1 mg/dL (1.6-2.6)
[2017-03-30 07:18] VITALS: BP 122/79; TEMP 98.1
[2017-03-30] MEDS: predniSONE 20 MG TAB PO SCH (09:03)
[2017-03-30] MEDS: Rivaroxaban 15 MG TAB PO SCH (10:29)
--- NOTE | 2017-03-30 14:53 | PRG ---
DATE OF SERVICE: 03/30/2017 SERVICE: Pulmonary Medicine. INTERVAL HISTORY: The patient is doing really well from a respiratory standpoint. He has no chest p ain or shortness of breath. His leg pain is much improved. Initially when he started walking around , there was a slight tenderness leg. This resolving only has a little bit of discomfort left. Overa ll, he is very pleased with the way things are progressing. He has no specific complaints of nausea, vomiting, or diarrhea. He is looking forward to going home today. PHYSICAL EXAMINATION: VITAL SIGNS: Afebrile, pulse 67, blood pressure 122/79, respirations 19, saturation 92% on room air. GENERAL: The patient is awake and alert, in no apparent distress. LUNGS: Decreased air entry. Dependent crackles are present. HEART: Normal rate, regular. ABDOMEN: Soft, nontender, nondistended, bowel sounds positive. MUSCULOSKELETAL: No cyanosis or clubbing. There is no pitting in the bilateral lower extremities. NEUROLOGIC: Grossly nonfocal. LABORATORY DATA: WBC 15.8 and stable, hemoglobin 14.3 and platelets 367,000. INR 1.1. Basic metabo lic profile is completely unremarkable. Magnesium is normal. ASSESSMENT: 1. Deep venous thrombosis. 2. Interstitial lung disease, mild. PLAN: We will discharge the patient today on his Xarelto. He knows to follow up with Dr. Bhatia in 3 weeks in the outpatient setting. I have given him enough samples to get him to that appointment. I have also provided him with a prescription for the Xarelto, and a lower dose of steroids moving forw randolph and I believe the plan was to give him 10 mg on a daily basis.
== END 2017-03-30 15:45 | disposition home or self-care (01) | DRG 301 ==
LOC: ONC 18:01
PROVIDERS: ADMIT Internal Medicine Critical Care Medicine; ATTEND Internal Medicine Critical Care Medicine
DX: I82.401 Acute embolism and thrombosis of unspecified deep veins of right lower extremity (principal); J84.89 Other specified interstitial pulmonary diseases; E11.9 Type 2 diabetes mellitus without complications; I10 Essential (primary) hypertension
CPT/HCPCS: 36415; 36416; 80048; 82565; 83735; 85014; 85018; 85025; 85049; 85610; 85730; 90471; 90682; 94760; G0008; J1650; J1815; J7506; Q2036

== ENCOUNTER 2017-04-22 21:08 | Inpatient (IN) | payer MEDICAID, SELFPAY ==
[2017-04-23] MEDS ORDERED: Sodium Chloride 0.9% 1,000 ML IV SCH (01:08)
[2017-04-23] MEDS ORDERED: Ondansetron ODT 4 MG TAB PO PRN (01:33)
[2017-04-23] MEDS ORDERED: Acetaminophen 325 MG TAB PO PRN (01:33)
[2017-04-23] MEDS ORDERED: Guaifenesin DM 100-10/5 ML UDCUP PO PRN (01:33)
[2017-04-23] MEDS ORDERED: HYDROcodone/Acetaminophen 10/325 mg Tablet PO PRN (01:33)
[2017-04-23] MEDS ORDERED: HYDROcodone/Acetaminophen 5/325 mg Tablet PO PRN (01:33)
[2017-04-23] MEDS: Sodium Chloride 0.9% 1,000 ML IV SCH ×2 (01:33→15:09)
[2017-04-23 01:40] VITALS: BMI 29.2
--- NOTE | 2017-04-23 03:59 | HP ---
DATE OF ADMISSION: 04/22/2017 TIME OF SERVICE: 2330 CHIEF COMPLAINT: Pneumonia transfer. HISTORY OF PRESENT ILLNESS: Mr. Shepherd is a 71-year-old male, primarily Swedish speaki ng, who initially presented to [place] [facility] for fever and a cough with some shortness of breath. Workup there showed him to be flu B positive, chest x-ray showed a right lower lobe infiltrate. He w as transferred here for further workup. His recent past medical history has been complicated for admission for DVT. He was started on Xarelt o 15 mg p.o. b.i.d. and is now on the 20 mg daily dose. He denies any chest pain, no nausea and vomi ting, no chills or rigors, and no wheezing or chest tightness. The patient is followed by Dr. Bhatia intermediate, he is on chronic prednisone for nonspecific interstit ial pneumonitis. He is feeling much better now than he did on initial presentation. PAST MEDICAL HISTORY: 1. COPD. 2. Hyperlipidemia. Primary cholesterol. 3. Hypertension. 4. History of deep venous thrombosis/pulmonary embolus. 5. Nonspecific interstitial pneumonitis. PAST SURGICAL HISTORY: Denied. HOME MEDICATIONS: 1. Aspirin 81 mg daily. 2. Xarelto 20 mg daily. 3. Prednisone 10 mg daily. 4. He said he has breathing medicines at home. ALLERGIES: NKDA. FAMILY HISTORY: Negative for clotting or bleeding disorder, no immune dysfunction. No recent travel . SOCIAL HISTORY: He does have a past tobacco, but quit some time ago. He uses no alcohol, tobacco, o r drugs now. He is and accompanies him. REVIEW OF SYSTEMS: A 10-point review of systems was performed and negative for all other systems exc ept that as per HPI. PHYSICAL EXAMINATION: VITAL SIGNS: Temperature 99.7, pulse 98, blood pressure 94/70, respiratory 20, satting 92% on 3 lite rs nasal cannula. He is not normally on oxygen. GENERAL: He is awake. He is alert. He is oriented x3, well-developed, well-nourished [place] Radha n male who appears to be in no distress. HEENT: Normocephalic and atraumatic. Pupils equal and reactive to light bilaterally. ENT: Mucous remains moist. He has no visible lesions. No thrush. NECK: Supple. There is no lymphadenopathy, JVD or thyromegaly. There is normal carotid upstrokes w ithout bruits. RESPIRATORY: Lungs have good air movement bilaterally with just a symmetrical chest excursion. He i s not using accessory muscles. He does have some faint bibasilar crackles on the right more than the left. There is no prolonged expiratory phase. No rhonchi. CARDIOVASCULAR: He is slightly tachycardic, but below 100. He has a normal S1 and S2. I do not elvin reciate murmurs at this time. ABDOMEN: Soft and is nontender, nondistended. He has no masses, no organomegaly. He has good bowel sounds in all 4 quadrants. There is no rebound, rigidity or guarding. EXTREMITIES: No cyanosis, clubbing with trace pedal edema. He has 2+ peripheral pulses in the dorsa lis pedis and posterior tibial and the radial arteries bilaterally. SKIN: Skin was otherwise warm, moist and well perfused. He has no other rashes or lesions. NEUROLOGIC: Cranial nerves II-XII are grossly intact. He has no focal neurologic deficits and a nor mal speech pattern. MUSCULOSKELETAL: Exam is normal to inspection. He has no inflamed joints and no palpable joint effu sions. LABORATORY DATA: Sodium 140, potassium 3.6, chloride 104, bicarb 23, BUN 12, creatinine 0.84, glucos e 122 and calcium 8.7. Liver functions are normal. CBC showed a white count of 23.7. He has increased granulocyte number, but the differential is seven l. Hemoglobin 15.7, hematocrit 47.1, and platelet count 321,000. Urinalysis was clear for infection. Microbiologic studies include an influenza screen that was positive for flu B, but not to A. Chest x-ray showed a right basilar pneumonia. ASSESSMENT AND PLAN: 1. Healthcare associated pneumonia, the patient was admitted just 2-1/2 weeks ago. At this time he is influenza B positive. I suspect this is likely an influenza pneumonia or a community-acquired typ e germ. We will start him on levofloxacin and oseltamivir. We will admit him to the hospital, and s upport him with oxygen. We will continue his prednisone. I have asked Pulmonary to evaluate. I did not increase in the stress doses as he did not appear to be in any extremis at this time, but I did order some DuoNebs q.4h. as needed. 2. History of hyperlipidemia. 3. Hypertension. 4. Nonspecific interstitial pneumonitis per phone. 5. Recent deep venous thrombosis/pulmonary embolus on Xarelto. 6. Influenza B as above.
[2017-04-23 05:19] LABS: Anion Gap 9 mmol/L (10-20); BUN (Urea Nitrogen) 9 mg/dL (8.4-25.7); Calc. Creatinine Clearance 115 mL/min (70-130); Calcium 8.3 mg/dL (7.8-10.44); Carbon Dioxide 25 mmol/L (23-31); Chloride 110 mmol/L (98-107); Estimated GFR-MDRD Greater than 90; Glucose 121 mg/dL (80-115); Magnesium 1.7 mg/dL (1.6-2.6); Sodium 141 mmol/L (136-145)
[2017-04-23 05:31] LABS: Band 20 % (5-11); Hemoglobin 13.6 g/dL (14.0-18.0); Lymphocytes 17 % (21-51); MDiff Complete? YES; Mean Corpuscular HGB CONC 33.1 g/dL (32.0-36.0); Mean Corpuscular Hemoglobin 31.4 pg (27.0-31.0); Mean Platelet Volume 7.2 fL (7.4-10.4); Monocytes 5 % (0-10); Neutrophil 58 % (42-75); PLT Morphology Comment Appears Adequate; Platelet Count 247 thou/uL (130-400); RBC Distribution Width 13.7 % (11.5-14.5); Red Blood Cell (RBC) Count 4.32 mill/uL (4.70-6.10); White Blood Cell (WBC) Count 24.8 thou/uL (4.8-10.8)
[2017-04-23] MEDS: Potassium Chloride 20 MEQ TAB PO SCH ×3 (07:15→15:10)
[2017-04-23] MEDS ORDERED: predniSONE 20 MG TAB PO SCH (08:00)
--- NOTE | 2017-04-23 08:52 | RAD ---
PA AND LATERAL CHEST: Comparison: 01-14-17 History: Flu, right lower lobe pneumonia. FINDINGS: Heart size and mediastinum are within normal limits. Bibasilar interstitial lung changes are fairly s imilar to the previous exam and appear to be chronic in nature. No definite acute process. IMPRESSION: Stable exam. POS: [facility]
[2017-04-23] MEDS: Famotidine 20 MG TAB PO SCH ×2 (09:33→20:37)
[2017-04-23] MEDS: Oseltamivir 75 MG CAP PO SCH ×2 (09:58→20:38)
[2017-04-23] MEDS: Rivaroxaban 10 MG TAB PO SCH (09:58)
--- NOTE | 2017-04-23 16:31 | CON ---
DATE OF CONSULTATION: 04/23/2017 HISTORY OF PRESENT ILLNESS: Mr. Shepherd is a very pleasant gentleman, well-known to me. He was recent ly in the hospital with a deep vein thrombus involving his right lower extremity. He has a history of diffuse infiltrates on chest radiograph in the past. This was worked up with fran gical lung biopsy, which revealed nonspecific interstitial pneumonitis. This was reviewed at [facility] in[facility]. He was treated with steroids and had a gradual improvement to what I feel is his new baseline. He wa s to be weaned off of steroids, but did not comply with the weaning process and actually ran out of p rednisone. He was recently seen by me, admitted for a DVT, restarted on steroids, and is currently i n the process of tapering. We were able to give him samples of Xarelto for his anticoagulation. He presented with complaints of fever, cough, and some mild shortness of breath. He had influenza te st that was positive. His chest radiograph is unchanged from his past film. He has subsequently been admitted for further care. PAST MEDICAL HISTORY: Remarkable for a lipid disorder, hypertension, DVT, nonspecific interstitial p neumonitis surgically proven. PAST SURGICAL HISTORY: Remarkable for his open lung biopsy and PEG placement. PEG placement was for the swallowing dysfunction that developed while he was ventilated after his surgery. He was actuall y quite ill at the time of his surgical lung biopsy and remained mechanically ventilated for some bridget e after that. He was identified as having swallowing dysfunction after that and required a PEG. Thi s has been since removed. MEDICATIONS: Prior to admission, he was on a baby aspirin, Xarelto, 10 mg of prednisone. He has a n ebulizer at the house. ALLERGIES: He has no drug allergies. FAMILY HISTORY: Negative for lung disease. SOCIAL HISTORY: He is a nonsmoker and nondrinker. He has actually been more or less compliant since surgical lung biopsy. Prior to that, he was seen a s an inpatient with diffuse infiltrates and followup was recommended and he missed his followup appoi ntments. He came back several months later with worsening infiltrates and clinical condition. He has a very supportive and family. REVIEW OF SYSTEMS: A 10-point review of systems is otherwise negative and he actually now says he fe els almost back to his baseline. He reports only minimal cough and no fevers. PHYSICAL EXAMINATION: VITAL SIGNS: His temperature maximum is 99.1 today, his heart rate in the 80s, respiratory rate is 1 5, oximetry is 95 on 3 liters, blood pressure 96/63. HEENT: Pupils are equal. Sclerae is anicteric. LUNGS: Distant and clear. HEART: Regular rhythm, no S3. ABDOMEN: Soft and nontender. EXTREMITIES: Without clubbing, cyanosis, or edema. LABORATORY DATA: White count yesterday was 24, hemoglobin 13.6, platelets 247,000. Sodium 141, pota ssium 3, chloride 110, bicarbonate 25, BUN 9, creatinine 0.6. Chest radiograph, reviewed by me, is u nchanged from his last film. IMPRESSION: 1. Nonspecific interstitial pneumonitis. 2. Influenza creating current symptoms. I do not feel he has a bacterial pneumonia. We may be able to transition him home here in 24-48 hour s. This is 50-minute consult and greater than 50% of the time was spent meeting with the family on t he olivia, counseling, consulting with staff, and reviewing records and radiographs as well as lab work .
--- NOTE | 2017-04-23 22:30 | PDOC.PN ---
- Subjective Encounter Start Date: 04/23/17 Encounter Start Time: 08:30 Patient seen and examined. Feels gen weak. No overnight events - Objective Resuscitation Status: Resuscitation Status FULL:Full Resuscitation MAR Reviewed: Yes Vital Signs & Weight: Vital Signs (12 hours) Temp Pulse Resp BP Pulse Ox 04/23/17 20:00 97.8 F 82 20 103/85 93 L 04/23/17 16:44 97.7 F 82 16 99/66 94 L 04/23/17 16:00 97.7 F 82 16 99/66 94 L 04/23/17 12:03 98.5 F 79 16 96/63 93 L 04/23/17 12:00 98.5 F 79 16 96/63 93 L Weight Weight 175 lb 7.807 oz Result Diagrams: 04/23/17 04:39 04/23/17 04:39 Radiology Reviewed by me: Yes (CXR - no sig change) Phys Exam - Physical Examination Constitutional: NAD Respiratory: no wheezing Scat rhonchi/rales at bases, Symmetrical Cardiovascular: RRR, no rub Gastrointestinal: soft, non-tender, positive bowel sounds Neurological: non-focal, moves all 4 limbs Dx/Plan - Plan IMPRESSION: 1. Sepsis with acute organ dysfunction due to Influenza B Pneumonia 2. Hypokalemia 3. Recent DVT on anticoagulation 4. Nonspecific intersitial pneumonitis 5. HTN/Dyslipidemia PLAN: * Cont Tamiflu * Await Pulm input * Cont to monitor * AM labs * Replace Potassium * Cont Steroids/Nebs Review of Systems - Review of Systems Cardiovascular: negative: chest pain, palpitations, orthopnea, paroxysmal nocturnal dyspnea, edema, light headedness Gastrointestinal: negative: Nausea, Vomiting, Abdominal Pain, Diarrhea, Constipation, Melena, Hematochezia - Medications/Allergies Allergies/Adverse Reactions: Allergies Allergy/AdvReac Type Severity Reaction Status Date / Time No Known Drug Allergies Allergy Verified 04/23/17 01:23 Medications: Current Medications Acetaminophen (Tylenol) 650 mg PO Q4H PRN PRN Reason: Headache/Fever or Pain Last Admin: 04/23/17 20:37 Dose: 650 mg Hydrocodone Bitart/Acetaminophen ([place] 10/325) 1 tab PO Q4H PRN PRN Reason: Severe Pain (7-10) Hydrocodone Bitart/Acetaminophen ([place] 5/325) 1 tab PO Q4H PRN PRN Reason: Moderate Pain (4-6) Albuterol/Ipratropium (Duoneb) 3 ml NEB [id number] PRN PRN Reason: SOB &/or Wheezing Aspirin (Aspirin Chewable) 81 mg PO DAILY [facility] Last Admin: 04/23/17 09:33 Dose: 81 mg Famotidine (Pepcid) 20 mg PO BID [facility] Last Admin: 04/23/17 20:37 Dose: 20 mg Guaifenesin/Dextromethorphan (Robitussin Dm) 15 ml PO Q4H PRN PRN Reason: Cough Sodium Chloride (Normal Saline 0.9%) 1,000 mls @ 100 mls/hr IV .Q10H [facility] Last Admin: 04/23/17 15:09 Dose: 1,000 mls Methylprednisolone Sodium Succinate (Solu-Medrol) 40 mg IVP DAILY [facility] Ondansetron HCl (Zofran Odt) 4 mg PO Q6H PRN PRN Reason: Nausea/Vomiting Oseltamivir Phosphate (Tamiflu) 75 mg PO BID [facility] Stop: 04/27/17 21:01 Last Admin: 04/23/17 20:38 Dose: 75 mg Rivaroxaban (Xarelto) 20 mg PO DAILY [facility] Last Admin: 04/23/17 09:58 Dose: 20 mg Sodium Chloride (Flush - Normal Saline) 10 ml IVF Q12HR [facility] Last Admin: 04/23/17 09:59 Dose: 10 ml Sodium Chloride (Flush - Normal Saline) 10 ml IVF PRN PRN PRN Reason: Saline Flush
[2017-04-24] MEDS: Sodium Chloride 0.9% 1,000 ML IV SCH ×2 (01:37→12:45)
[2017-04-24 06:52] LABS: Hemoglobin 13.5 g/dL (14.0-18.0); Mean Corpuscular HGB CONC 32.6 g/dL (32.0-36.0); Mean Corpuscular Hemoglobin 31.4 pg (27.0-31.0); Mean Corpuscular Volume 96.3 fl (80.0-94.0); Mean Platelet Volume 6.9 fL (7.4-10.4); Platelet Count 243 thou/uL (130-400); RBC Distribution Width 13.4 % (11.5-14.5); Red Blood Cell (RBC) Count 4.28 mill/uL (4.70-6.10); White Blood Cell (WBC) Count 14.4 thou/uL (4.8-10.8)
[2017-04-24 06:56] LABS: ALT (SGPT) 15 U/L (8-55); AST (SGOT) 10 U/L (5-34); Albumin 2.7 g/dL (3.4-4.8); Alkaline Phosphatase 61 U/L (40-150); Anion Gap 10 mmol/L (10-20); BUN (Urea Nitrogen) 12 mg/dL (8.4-25.7); Bilirubin, Total 0.2 mg/dL (0.2-1.2); Calc. Creatinine Clearance 121 mL/min (70-130); Calcium 8.8 mg/dL (7.8-10.44); Carbon Dioxide 22 mmol/L (23-31); Chloride 113 mmol/L (98-107); Estimated GFR-MDRD Greater than 90; Globulin 3.5 g/dL (2.4-3.5); Glucose 91 mg/dL (80-115); Magnesium 1.9 mg/dL (1.6-2.6); Phosphorus 3.6 mg/dL (2.3-4.7); Potassium 3.4 mmol/L (3.5-5.1); Protein, Total 6.2 g/dL (5.8-8.1); Sodium 142 mmol/L (136-145)
[2017-04-24 07:22] LABS: Band 7 % (5-11); Eosinophils 1 % (0-10); Lymphocytes 20 % (21-51); MDiff Complete? YES; Monocytes 5 % (0-10); Neutrophil 62 % (42-75); Polychromasia SLIGHT = 2-3 cells (100X) (0-2/hpf); Reactive Lymphocytes 5 % (0-10)
--- NOTE | 2017-04-24 08:21 | PRG ---
DATE OF SERVICE: 04/24/2017 Mr. Shepherd says he is feeling better. I have explained to the family if he did not have underlying interstitial lung disease I would probab ly discharge him today, I prefer to keep him 1 more day. I also explained this to the daughter by ph one. PHYSICAL EXAMINATION: VITAL SIGNS: He is afebrile, heart rate 82, respiratory rate 20, oximetry is 94 on 3 liters. LUNGS: Lungs are remarkable for fine crackles at his bases. HEART: Regular rhythm. LABORATORY DATA: White count 14.4, hemoglobin 13.5, platelets 243. Sodium 142, potassium 3.4, chlor lisandro 113, bicarbonate 22, BUN 12, creatinine 0.65. IMPRESSION: 1. Nonspecific interstitial pneumonitis. 2. Influenza. 3. Respiratory symptoms secondary to influenza, improved. 4. Mild hyperchloremic acidosis. 5. Hypoalbuminemia secondary to chronic illness. PLAN: Increase his activity level today, try to wean him off oxygen and hopefully he can go home ag[facility].
[2017-04-24] MEDS ORDERED: Potassium Chloride 20 MEQ TAB PO SCH (09:45)
[2017-04-24] MEDS: Oseltamivir 75 MG CAP PO SCH ×2 (10:34→20:55)
[2017-04-24] MEDS: Famotidine 20 MG TAB PO SCH ×2 (10:34→20:55)
[2017-04-24] MEDS: Rivaroxaban 10 MG TAB PO SCH (14:39)
[2017-04-24] MEDS: cefTRIAXone\\ROCEPHIN 2 GM in Sodium Chloride 0.9% 100 ML IVPB SCH (16:34)
[2017-04-24] MEDS: Potassium Chloride 20 MEQ TAB PO SCH (16:34)
--- NOTE | 2017-04-24 21:24 | PDOC.PN ---
- Subjective Encounter Start Date: 04/24/17 Encounter Start Time: 13:30 Patient seen and examined. Cough/SOB +. No overnight events - Objective Resuscitation Status: Resuscitation Status FULL:Full Resuscitation MAR Reviewed: Yes Vital Signs & Weight: Vital Signs (12 hours) Temp Pulse Resp BP Pulse Ox 04/24/17 20:00 97.5 F L 77 22 H 95/56 L 93 L 04/24/17 16:25 97.9 F 73 16 98/60 92 L 04/24/17 16:00 97.9 F 73 16 98/60 92 L 04/24/17 12:27 98.2 F 67 16 96/61 92 L 04/24/17 12:00 98.2 F 67 16 96/61 92 L Weight Weight 175 lb 7.807 oz Result Diagrams: 04/25/17 04:32 04/25/17 04:32 Phys Exam - Physical Examination Constitutional: NAD Respiratory: no wheezing, no rales Coarse BS B/L Cardiovascular: RRR, no rub Gastrointestinal: soft, positive bowel sounds Musculoskeletal: no edema Neurological: moves all 4 limbs Dx/Plan - Plan IMPRESSION: 1. Sepsis with acute organ dysfunction due to Influenza B/ Pneumococcus Pneumonia 2. Strep Pneumoniae bacteremia 3. Recent DVT on anticoagulation 4. Nonspecific intersitial pneumonitis 5. Hypokalemia/HTN/Dyslipidemia PLAN: * Pulm following * Cont to monitor * AM labs * Cont Potassium replacement * Cont Steroids/Nebs/Tamiflu * Cont current meds as below Microbiology 04/22/17 19:00 Venous blood - Right Arm Blood Culture - Preliminary Specimen has been received and culture in progress. No Growth to date. 04/22/17 19:00 Venous blood - Left Arm Blood Culture - Preliminary Streptococcus pneumoniae Review of Systems - Review of Systems Cardiovascular: negative: chest pain, palpitations, orthopnea, paroxysmal nocturnal dyspnea, edema, light headedness Gastrointestinal: negative: Nausea, Vomiting, Abdominal Pain, Diarrhea, Constipation, Melena, Hematochezia - Medications/Allergies Allergies/Adverse Reactions: Allergies Allergy/AdvReac Type Severity Reaction Status Date / Time No Known Drug Allergies Allergy Verified 04/23/17 01:23 Medications: Current Medications Acetaminophen (Tylenol) 650 mg PO Q4H PRN PRN Reason: Headache/Fever or Pain Last Admin: 04/23/17 20:37 Dose: 650 mg Hydrocodone Bitart/Acetaminophen (Selma 10/325) 1 tab PO Q4H PRN PRN Reason: Severe Pain (7-10) Hydrocodone Bitart/Acetaminophen (Selma 5/325) 1 tab PO Q4H PRN PRN Reason: Moderate Pain (4-6) Albuterol/Ipratropium (Duoneb) 3 ml NEB [id number] PRN PRN Reason: SOB &/or Wheezing Famotidine (Pepcid) 20 mg PO BID [facility] Last Admin: 04/24/17 20:55 Dose: 20 mg Guaifenesin/Dextromethorphan (Robitussin Dm) 15 ml PO Q4H PRN PRN Reason: Cough Sodium Chloride (Normal Saline 0.9%) 1,000 mls @ 100 mls/hr IV .Q10H [facility] Last Admin: 04/24/17 12:45 Dose: 1,000 mls Ceftriaxone Sodium 2 gm/ (Sodium Chloride) 100 mls @ 200 mls/hr IVPB 1500 [facility] Last Admin: 04/24/17 16:34 Dose: 100 mls Methylprednisolone Sodium Succinate (Solu-Medrol) 40 mg IVP DAILY [facility] Last Admin: 04/24/17 10:33 Dose: 40 mg Ondansetron HCl (Zofran Odt) 4 mg PO Q6H PRN PRN Reason: Nausea/Vomiting Oseltamivir Phosphate (Tamiflu) 75 mg PO BID [facility] Stop: 04/27/17 21:01 Last Admin: 04/24/17 20:55 Dose: 75 mg Potassium Chloride (K-Dur) 20 meq PO BID[facility] Last Admin: 04/24/17 16:34 Dose: 20 meq Rivaroxaban (Xarelto) 20 mg PO DAILY [facility] Last Admin: 04/24/17 14:39 Dose: 20 mg Sodium Chloride (Flush - Normal Saline) 10 ml IVF Q12HR [facility] Last Admin: 04/24/17 20:59 Dose: Not Given Sodium Chloride (Flush - Normal Saline) 10 ml IVF PRN PRN PRN Reason: Saline Flush
[2017-04-25 06:09] LABS: Band 4 % (5-11); Hemoglobin 13.4 g/dL (14.0-18.0); Lymphocytes 15 % (21-51); MDiff Complete? YES; Mean Corpuscular HGB CONC 33.5 g/dL (32.0-36.0); Mean Corpuscular Hemoglobin 31.7 pg (27.0-31.0); Mean Corpuscular Volume 94.7 fl (80.0-94.0); Mean Platelet Volume 7.9 fL (7.4-10.4); Monocytes 3 % (0-10); Neutrophil 78 % (42-75); Platelet Count 264 thou/uL (130-400); RBC Distribution Width 13.3 % (11.5-14.5); Red Blood Cell (RBC) Count 4.22 mill/uL (4.70-6.10); White Blood Cell (WBC) Count 15.1 thou/uL (4.8-10.8)
[2017-04-25 06:22] LABS: ALT (SGPT) 15 U/L (8-55); AST (SGOT) 9 U/L (5-34); Albumin 2.9 g/dL (3.4-4.8); Alkaline Phosphatase 63 U/L (40-150); Anion Gap 14 mmol/L (10-20); BUN (Urea Nitrogen) 11 mg/dL (8.4-25.7); Bilirubin, Total 0.2 mg/dL (0.2-1.2); Calc. Creatinine Clearance 117 mL/min (70-130); Calcium 8.9 mg/dL (7.8-10.44); Carbon Dioxide 21 mmol/L (23-31); Chloride 109 mmol/L (98-107); Estimated GFR-MDRD Greater than 90; Globulin 3.7 g/dL (2.4-3.5); Glucose 113 mg/dL (80-115); Magnesium 1.8 mg/dL (1.6-2.6); Potassium 3.7 mmol/L (3.5-5.1); Protein, Total 6.6 g/dL (5.8-8.1); Sodium 140 mmol/L (136-145)
[2017-04-25] MEDS: Sodium Chloride 0.9% 1,000 ML IV SCH ×3 (09:03→19:43)
[2017-04-25] MEDS: Potassium Chloride 20 MEQ TAB PO SCH ×2 (09:06→19:43)
[2017-04-25] MEDS: Famotidine 20 MG TAB PO SCH (09:06)
[2017-04-25] MEDS: Oseltamivir 75 MG CAP PO SCH (09:06)
[2017-04-25] MEDS: Rivaroxaban 10 MG TAB PO SCH (09:06)
[2017-04-25 16:35] VITALS: BP 106/69; TEMP 97.9
--- NOTE | 2017-04-25 17:42 | DIS ---
DATE OF ADMISSION: 04/22/2017 DATE OF DISCHARGE: 04/25/2017 DISCHARGE DISPOSITION: Home. DISCHARGE FOLLOWUP: 1. Follow up with primary care physician, Dr. Workman, in 1 week. 2. Follow up with primary dye range operator cloth, Dr. Bhatia, in 2-3 weeks. ALLERGIES: No known drug allergies. Base met after 1 week is recommended. Primary care physician i s advised to follow. INPATIENT EVENT SPECIALIST PRODUCT DEMONSTRATOR: Pulmonary, Dr. Bhatia. DISCHARGE MEDICATIONS: 1. Augmentin 875 mg b.i.d. #20. 2. Tamiflu 75 mg b.i.d. 3. Prednisone 10 mg daily. 4. Xarelto 20 mg daily. BRIEF HOSPITAL COURSE: The patient is a 71-year-old male, primary Upper Sorbian speaking only, pr esented to the hospital with fever, cough and shortness of breath. His workup was consistent with in fluenza B with pneumonia. Please refer to the history and physical dated 04/22/2017 by jai Méndez or further details. The patient was admitted to the hospital with a diagnosis of sepsis secondary to influenza B. His bl ood culture 1 of 2 was positive for Strep pneumonia. Sensitivities are pending at this time. He benjamin l be discharged home on Augmentin per Dr. Bhatia. He will continue Tamiflu. He received IV steroids during this hospital stay that has been changed to oral. He has been cleared by Pulmonary for discha rge. His O2 saturation on room air is 93% to 94%. He also had some electrolyte imbalances that has been corrected. FINAL DIAGNOSES: 1. Sepsis with acute organ dysfunction secondary to Influenzae B as well as pneumococcal pneumonia. 2. Strep pneumonia bacteremia. 3. History of deep venous thrombosis, on anticoagulation. 4. Hypokalemia. 5. Hypertension. 6. Dyslipidemia. 7. Lactic acidosis on admission. 8. Nonspecific interstitial pneumonitis followed by Dr. Bhatia. Plan of care was discussed with the patient in detail. He stated understanding. Total time coordinating the discharge of this patient was 35 minutes.
[2017-04-25] MEDS: cefTRIAXone\\ROCEPHIN 2 GM in Sodium Chloride 0.9% 100 ML IVPB SCH (19:43)
--- NOTE | 2017-04-25 21:07 | PRG ---
DATE OF SERVICE: 04/25/2017 The patient did well overnight. He says he feels great. He is ready to go home. Since he has improved clinically so much, I think i t is reasonable to discharge him home. We would recommend sending him home with Augmentin 875 twice a day for 10 more days and prednisone 20 mg a day until he sees me again in 2 weeks. I have explaine d to the family via the daughter by phone what he needs to do. The acknowledges that she unders tands. I will see him in the office in 2 weeks.
== END 2017-04-25 19:42 | disposition home or self-care (01) | DRG 871 ==
LOC: ERS 21:08 → T4-A 21:50
PROVIDERS: ADMIT Internal Medicine Infectious Disease; ATTEND Internal Medicine Infectious Disease
DX: A41.89 Other specified sepsis (principal); A40.3 Sepsis due to Streptococcus pneumoniae; J10.08 Influenza due to other identified influenza virus with other specified pneumonia; E87.2 Acidosis; R09.02 Hypoxemia; E87.6 Hypokalemia; J13 Pneumonia due to Streptococcus pneumoniae; J84.89 Other specified interstitial pulmonary diseases; E88.09 Other disorders of plasma-protein metabolism, not elsewhere classified; Z86.718 Personal history of other venous thrombosis and embolism; Z79.01 Long term (current) use of anticoagulants; I10 Essential (primary) hypertension; E78.00 Pure hypercholesterolemia, unspecified; Z87.891 Personal history of nicotine dependence
CPT/HCPCS: 36415; 71046; 80048; 80053; 83735; 84100; 85007; 85025; 85027; 99285; A4216; G8996-GN-CH; G8997-GN-CH; J0696; J2920; J7050; J7506

== ENCOUNTER 2017-05-08 07:23 | Outpatient (CLI) | payer MEDICAID ==
--- NOTE | 2017-05-09 07:44 | RAD ---
CHEST 2 VIEWS: HISTORY: Dyspnea. COMPARISON: Chest 2 views 04/23/17. FINDINGS: Mild interval improvement of the right mid lung and lower lobe airspace interstitial opacities. No p neumothorax. Cardiac silhouette and mediastinal contours are similar. IMPRESSION: Improving interstitial opacities. This may reflect improving edema or atypical infectious process hawkins perimposed in pulmonary interstitial lung disease. POS: [facility]
== END 2017-05-08 07:24 | disposition home or self-care (01) ==
LOC: RAD 07:23
PROVIDERS: ATTEND Internal Medicine Critical Care Medicine
DX: R06.00 Dyspnea, unspecified (principal); R91.8 Other nonspecific abnormal finding of lung field
CPT/HCPCS: 71046

== ENCOUNTER 2018-07-23 | Inpatient (IN) | payer SELFPAY ==
[2018-07-23] MEDS ORDERED: Ondansetron PF 4 MG/2 ML Vial IVP PRN (00:47)
[2018-07-23] MEDS ORDERED: Zolpidem Tartrate 5 MG TAB PO PRN (00:47)
[2018-07-23 03:57] LABS: Lactic Acid 1.9 mmol/L (0.5-2.2)
[2018-07-23 03:58] LABS: Anion Gap 12 mmol/L (10-20); BUN (Urea Nitrogen) 8 mg/dL (8.4-25.7); Calc. Creatinine Clearance 0 mL/min (70-130); Calcium 8.5 mg/dL (7.8-10.44); Carbon Dioxide 23 mmol/L (23-31); Chloride 108 mmol/L (98-107); Estimated GFR-MDRD 88; Glucose 114 mg/dL (83-110); Potassium 3.6 mmol/L (3.5-5.1); Sodium 139 mmol/L (136-145)
[2018-07-23] MEDS: Sodium Chloride 0.9% 1,000 ML IV SCH ×3 (03:59→17:35)
[2018-07-23 04:06] LABS: Band 8 % (5-11); Hemoglobin 15.5 g/dL (14.0-18.0); Lymphocytes 13 % (21-51); MDiff Complete? YES; Mean Corpuscular HGB CONC 33.9 g/dL (32.0-36.0); Mean Corpuscular Hemoglobin 32.1 pg (27.0-31.0); Mean Corpuscular Volume 94.7 fL (78.0-98.0); Mean Platelet Volume 7.9 fL (7.4-10.4); Monocytes 22 % (0-10); Myelocyte 1 % (0-0); Neutrophil 56 % (42-75); Platelet Count 210 thou/uL (130-400); RBC Distribution Width 13.1 % (11.5-14.5); Red Blood Cell (RBC) Count 4.83 mill/uL (4.70-6.10); White Blood Cell (WBC) Count 21.5 thou/uL (4.8-10.8)
[2018-07-23] MEDS ORDERED: Acetaminophen 325 MG TAB ONE (04:43)
[2018-07-23] MEDS: Acetaminophen 325 MG TAB PO PRN ×3 (04:46→16:27)
[2018-07-23] MEDS ORDERED: Lorazepam 2 MG/ML VIAL ONE (05:19)
[2018-07-23] MEDS ORDERED: Morphine 4 MG/ML VIAL ONE (06:11)
[2018-07-23] MEDS ORDERED: Acetaminophen 500 MG TAB ONE (06:29)
--- NOTE | 2018-07-23 07:42 | RAD ---
SINGLE VIEW CHEST: Date: 07/23/18 COMPARISON: 05/08/17. HISTORY: Pneumonia with cough and dyspnea since yesterday. FINDINGS: Single view of the chest shows a normal sized cardiomediastinal silhouette. Air space opacities are s een in the left lower lobe and the right perihilar region consistent with infiltrates. These were not seen on the prior radiograph. No pleural effusion is seen. IMPRESSION: Multifocal infiltrates. POS: [facility]
[2018-07-23 08:02] LABS: Actual Bicarbonate (HCO3a) 21.9 mEq/L (22-28); Analyzer IN Cardio ER; Base Excess (BEa) -1.6 mEq/L (-2.0 to +3.0); CO2 Tension 33.9 mmHg (35.0-45.0); Carboxyhemoglobin (COHb) 1.7 gm% (0.0-3.0); Hemoglobin (Hb) 15.6 g/dL (14.0-18.0); Potassium - ABG Lab 3.46 mmol/L (3.70-5.30); pH, Arterial 7.43 (7.35-7.45)
[2018-07-23 08:03] LABS: O2 Tension (PaO2) 50.1 mmHg (> 70.0)
[2018-07-23 08:04] LABS: Puncture Site RR
[2018-07-23] MEDS ORDERED: Enoxaparin Sodium 40 MG/0.4 ML SYRINGE ONE (08:56)
[2018-07-23] MEDS ORDERED: Enoxaparin Sodium 40 MG/0.4 ML SYRINGE SC SCH (09:00)
[2018-07-23 13:03] VITALS: BMI 31.6
[2018-07-23] MEDS: Azithromycin 500 MG in Sodium Chloride 0.9% 250 ML 250 ML IVPB SCH (13:26)
[2018-07-23] MEDS: cefTRIAXone\\ROCEPHIN 1 GM in Sodium Chloride 0.9% 100 ML IVPB SCH (13:26)
[2018-07-23] MEDS: Oseltamivir 75 MG CAP PO SCH ×2 (13:27→20:45)
[2018-07-23] MEDS: methylPREDNISolone Sod Succ 40 MG VIAL IVP SCH ×2 (16:17→20:45)
[2018-07-23] MEDS: Benzonatate 100 MG CAP PO SCH ×2 (16:18→20:46)
--- NOTE | 2018-07-23 16:44 | HP ---
REASON FOR ADMISSION: Acute respiratory failure with hypoxia, influenza B pneumonia, sepsis. HISTORY OF PRESENTING ILLNESS: The patient gives history of having fever from last 2 days and cough with expectoration of white sputum. He has had shortness of breath, which has been progressively getting worse. His fever was 103 yesterday and had gone up even further this morning, which he could not really read at home. He felt very weak and finally made it to the emergency room today. The patient had a followup appointment to see Dr. Bhatia this morning in his outpatient clinic. The patient states he has had a flu shot for this year. During the course of his stay in the ER, the patient became tachycardic and tachypneic with respiratory rates going up to 34 and was finally placed on BiPAP. On BiPAP, he is feeling comfortable and his work of breathing has also eased up per patient. No complaints of chest pain or palpitation. PAST MEDICAL AND SURGICAL HISTORY: Hypertension, dyslipidemia, history of DVT, PE, has had a biopsy of the right lung with known history of nonspecific interstitial pneumonia in April of 2017, history of PEG and prior intubation, PEG was reversed, had surgical lung biopsy in the past. CURRENT MEDICATIONS: The patient is on; 1. Xarelto low-dose 10 mg daily. 2. Lipitor 20 mg daily. 3. He is placed on prednisone, which was a prescription given on the 10 of June from his primary care physician and he is unable to explain the reason why he is on four times a day prednisone. ALLERGIES: NO KNOWN DRUG ALLERGIES. PERSONAL HISTORY: Quit smoking more than 30 years ago. Does not abuse alcohol or drugs. Lives with his . He ambulates by himself. FAMILY HISTORY: Negative for any clotting or bleeding disorder. CODE STATUS: Full. POWER OF SECRETARY SPECIALIST: . REVIEW OF SYSTEMS: CONSTITUTIONAL: Negative for weight loss or gain, ability to conduct usual activities. SKIN: Negative for rash, itching. EYES: Negative for double vision, pain. ENT/MOUTH: Negative for nose bleeding, neck stiffness, pain, tenderness. CARDIOVASCULAR: Negative for palpitations, dyspnea on exertion, orthopnea. RESPIRATORY: Negative for shortness of breath, wheezing, cough, hemoptysis, fever or night sweats. GASTROINTESTINAL: Negative for poor appetite, abdominal pain, heartburn, nausea , vomiting, constipation, or diarrhea. GENITOURINARY: Negative for urgency, frequency, dysuria, nocturia. MUSCULOSKELETAL: Negative for pain, swelling. NEUROLOGIC/PSYCHIATRIC: Negative for anxiety, depression. ALLERGY/IMMUNOLOGIC: Negative for skin rash, bleeding tendency. PHYSICAL EXAMINATION: GENERAL: The patient is a 73-year-old male who is currently on BiPAP. VITAL SIGNS: Blood pressure 106/72, pulse 86 per minute, respiratory rate 30 per minute, temperature 97.7 degrees Fahrenheit, saturating 100% on BiPAP. NECK: Supple. No elevated JVD. HEENT: Eyes; extraocular muscles are intact. Pupils reacting to light. Oral cavity, mucous membranes are dry. There is mild congestion in the posterior pharynx. No exudates seen. CARDIOVASCULAR SYSTEM: S1 and S2 heard. Tachycardic. RESPIRATORY SYSTEM: Air entry 1+ bilateral. Scattered rhonchi plus bilateral crackles plus bilateral. ABDOMEN: Soft, bowel sounds heard. No tenderness, rigidity, or guarding. EXTREMITIES: No peripheral edema or calf tenderness. VASCULAR SYSTEM: Peripheral pulses 1+ bilateral. No ischemic ulcerations or gangrene. CENTRAL NERVOUS SYSTEM: No gross focal deficits noted. The patient moves all four extremities. No focal sign seen. PSYCHIATRIC SYSTEM: The patient's mood is a bit anxious, otherwise no hallucinations or delusions. LABORATORY DATA: EKG done shows sinus tach at 113 beats per minute. There is nonspecific ST-T wave changes. White count of 23, H and H of 15 and 48, platelet count 226, with 81% neutrophils, 6% lymphocytes, 5% reactive lymphocytes. PT/ INR 19.8 and 1.7. Blood gas done shows a pH of 7.43, pCO2 of 33, PO2 of 50, bicarb is 21, BUN 8, creatinine 0.8, serum glucose 179 on arrival. Lactic acid was 2.3. Albumin is 3.8. Liver enzymes within normal limits. First set of cardiac enzymes are negative. BNP is 26. Influenza B antigen is positive on the nasal swab. Chest x-ray done shows multifocal infiltrates. CLINICAL IMPRESSION AND PLAN: The patient will be admitted to [facility] for sepsis, pneumonia secondary to influenza B, acute respiratory failure with hypoxia with underlying biopsy-proven nonspecific interstitial pneumonia. He is placed on Tamiflu 75 mg twice daily along with Zithromax and ceftriaxone. He will also be on DuoNeb and small dose of IV steroids in view of underlying lung disease. We will continue Xarelto as before. Dr. Bhatia, his staff auditor, will be consulted during his stay here. We will revisit his code status if patient were to worsen in view of his underlying lung disease. I have given complete updates to patient, his , and son at bedside. Job ID: [id number] MTDD
[2018-07-23] MEDS: Atorvastatin Calcium 20 MG TAB PO SCH (20:45)
[2018-07-23] MEDS: guaiFENesin ER 600 MG TAB PO SCH (20:45)
[2018-07-24] MEDS: cefTRIAXone\\ROCEPHIN 1 GM in Sodium Chloride 0.9% 100 ML IVPB SCH (00:18)
[2018-07-24] MEDS: Azithromycin 500 MG in Sodium Chloride 0.9% 250 ML 250 ML IVPB SCH (00:19)
--- NOTE | 2018-07-24 02:01 | CON ---
DATE OF CONSULTATION: 07/23/2018 HISTORY OF PRESENT ILLNESS: Mr. Shepherd is a 73-year-old male who was supposed to see me in the office today. He presented to the emergency room, subsequently was admitted with a diagnosis pneumonia. He apparently transiently was on BiPAP in the emergency department. PAST MEDICAL HISTORY: Remarkable for, 1. DVT in March 2017. 2. History of admission in the past with severe hypoxemia and diffuse interstitial infiltrates leading to a prolonged stay in the ICU, surgical lung biopsy, swallowing dysfunction of PEG, all of which he recovered from. He was found to have nonspecific interstitial pneumonitis and had good response to treatment with steroids. 3. History of marginal medical followup that he has been much more compliant lately, especially once his family got more involved. 4. History of diabetes. 5. History of hypertension. 6. He says he has been congested between 3 and 5 days, that he has had green sputum. MEDICATIONS: Prior to admission, he is on, 1. Lipitor. 2. Xarelto. Apparently, he was on prednisone, but this did not come from my office. SOCIAL HISTORY: He is a nonsmoker and nondrinker. Does not use drugs. He lives with his . He is very supportive. ALLERGIES: HE HAS NO DRUG ALLERGIES. FAMILY HISTORY: Negative for lung disease in early age. REVIEW OF SYSTEMS: A 10-point review of systems completed, otherwise negative. PHYSICAL EXAMINATION: GENERAL: He is very pleasant. VITAL SIGNS: His temp is a 101.7 this afternoon. Heart rate is 102 with fever, respiratory rates in the 20s, oximetry is 95% on 2 L. HEENT: Pupils are equal. Sclerae anicteric. Conjunctivae injected. NECK: Without lymphadenopathy. LUNGS: Remarkable for rhonchi on the right, left lung is clear. HEART: Regular rhythm, S1 and S2 are normal. ABDOMEN: Soft and nontender. EXTREMITIES: Without clubbing, cyanosis, or edema. LABORATORY DATA: Chest radiograph shows an infrahilar infiltrate on the right and haziness laterally in the left lower lobe. IMPRESSION: 1. Community-acquired pneumonia. I doubt, he is aspirating. 2. History of thromboembolic disease on Eliquis. 3. Nonspecific interstitial pneumonitis with the recovery from this on steroids. As I recall, he was weaned off steroids. 4. He has flu, but I find an influenza B positive swab from April and an other B positive swab this admission. I am not sure that this is a false-positive. We will be happy to follow the other physicians caring for him. I agree with antimicrobial therapy. We will probably switch him to p.o. steroids tomorrow and hopefully he can go home the day after. TIME SPENT: This is a 50-minute consult, with greater than 50% of the time spent on the unit coordinating care. Job ID: [id number] MTDD
[2018-07-24] MEDS: Sodium Chloride 0.9% 1,000 ML IV SCH (05:37)
[2018-07-24] MEDS: methylPREDNISolone Sod Succ 40 MG VIAL IVP SCH (05:38)
--- NOTE | 2018-07-24 10:32 | PRG ---
DATE OF SERVICE: 07/24/2018 SUBJECTIVE: Cora says he is feeling better. OBJECTIVE: VITAL SIGNS: Oximetry is 94% on 2 L, heart rate is 93, and blood pressure 121/77. LUNGS: Remarkable for crackles in both lung bases. HEART: Regular rhythm. ABDOMEN: Soft. LABORATORY DATA: No new lab. His glucose is 161. IMPRESSION: 1. Pneumonia, community acquired. 2. History of nonspecific interstitial pneumonitis. I doubt his x-ray changes represent a recurrence. It is radiographically more consistent with community-acquired pneumonia. He will be switched to p.o. antimicrobial therapy. He may be a candidate to go home in 24 to 48 hours. Job ID: [id number]
[2018-07-24] MEDS: Benzonatate 100 MG CAP PO SCH ×3 (10:39→19:51)
[2018-07-24] MEDS: Rivaroxaban 10 MG TAB PO SCH (10:40)
[2018-07-24] MEDS: guaiFENesin ER 600 MG TAB PO SCH ×2 (10:40→19:51)
[2018-07-24] MEDS: Cefdinir 300 MG CAP PO SCH ×2 (10:40→19:51)
[2018-07-24] MEDS: Oseltamivir 75 MG CAP PO SCH ×2 (10:40→19:52)
--- NOTE | 2018-07-24 13:27 | PDOC.PN ---
- Subjective Encounter Start Date: 07/24/18 Encounter Start Time: 07:45 Subjective: is on nasal canula, ate his breakfast -: feels better, is sitting on bed -: at bedside - Objective MAR Reviewed: Yes Vital Signs & Weight: Vital Signs (12 hours) Temp Pulse Resp Pulse Ox 07/24/18 11:04 71 24 H 95 07/24/18 08:00 94 L 07/24/18 07:15 97.8 F 07/24/18 07:14 78 20 95 07/24/18 03:00 97.8 F Weight Admit Weight 190 lb Weight 190 lb Most Recent Monitor Data Heart Rate from ECG 96 NIBP 125/79 NIBP BP-Mean 94 Respiration from ECG 31 SpO2 94 I&O: 07/23/18 07/24/18 07/25/18 06:59 06:59 06:59 Intake Total 1068 Output Total 500 Balance 568 Result Diagrams: 07/23/18 03:23 07/23/18 03:23 Additional Labs: Accuchecks 07/24/18 05:43 POC Glucose 161 H Phys Exam - Physical Examination HEENT: PERRLA, moist MMs Neck: no JVD, supple Respiratory: no wheezing, no rales Cardiovascular: RRR, no significant murmur Gastrointestinal: soft, non-tender, positive bowel sounds Musculoskeletal: no edema, pulses present Neurological: non-focal, moves all 4 limbs Psychiatric: normal affect, A&O x 3 Dx/Plan (1) Influenza B Code(s): J10.1 - FLU DUE TO OTH IDENT INFLUENZA VIRUS W OTH RESP MANIFEST Status: Acute (2) Community acquired pneumonia Code(s): J18.9 - PNEUMONIA, UNSPECIFIED ORGANISM Status: Acute (3) Acute respiratory failure with hypoxia Code(s): J96.01 - ACUTE RESPIRATORY FAILURE WITH HYPOXIA Status: Acute (4) Sepsis Code(s): A41.9 - SEPSIS, UNSPECIFIED ORGANISM Status: Acute Qualifiers: Sepsis type: sepsis due to unspecified organism Qualified Code(s): A41.9 - Sepsis, unspecified organism (5) h/o nonspecific interstitial pna Status: Chronic (6) Dyslipidemia Code(s): E78.5 - HYPERLIPIDEMIA, UNSPECIFIED Status: Chronic (7) HTN (hypertension) Code(s): I10 - ESSENTIAL (PRIMARY) HYPERTENSION Status: Chronic Qualifiers: - Plan is on omnicef, prednisone, nebs, tamiflu -: continue xarelto, lipitor -: to ambulate as tolerated -: wean oxygen for spo2 of 90% -: d/w and patient at bedside * . Review of Systems - Medications/Allergies Allergies/Adverse Reactions: Allergies Allergy/AdvReac Type Severity Reaction Status Date / Time No Known Drug Allergies Allergy Verified 07/23/18 13:59 Medications: Current Medications Acetaminophen (Tylenol) 650 mg PO Q4H PRN PRN Reason: Headache/Fever/Mild Pain (1-3) Last Admin: 07/23/18 16:27 Dose: 650 mg Albuterol/Ipratropium (Duoneb) 3 ml NEB [id number] [facility] Last Admin: 07/24/18 11:04 Dose: 3 ml Atorvastatin Calcium (Lipitor) 20 mg PO HS [facility] Last Admin: 07/23/18 20:45 Dose: 20 mg Benzonatate (Tessalon) 100 mg PO TID [facility] Last Admin: 07/24/18 10:39 Dose: 100 mg Cefdinir (Omnicef) 300 mg PO BID [facility] Last Admin: 07/24/18 10:40 Dose: 300 mg Guaifenesin (Mucinex) 600 mg PO Q12HR [facility] Last Admin: 07/24/18 10:40 Dose: 600 mg Sodium Chloride (Normal Saline 0.9%) 1,000 mls @ 75 mls/hr IV .[id number] [facility] Last Admin: 07/24/18 05:37 Dose: 1,000 mls Ondansetron HCl (Zofran) 4 mg IVP Q6H PRN PRN Reason: Nausea/Vomiting Oseltamivir Phosphate (Tamiflu) 75 mg PO BID [facility] Stop: 07/27/18 21:01 Last Admin: 07/24/18 10:40 Dose: 75 mg Prednisone (Prednisone) 40 mg PO QAM[facility] Rivaroxaban (Xarelto) 10 mg PO DAILY [facility] Last Admin: 07/24/18 10:40 Dose: 10 mg Sodium Chloride (Flush - Normal Saline) 10 ml IVF Q12HR [facility] Last Admin: 07/24/18 10:42 Dose: 10 ml Sodium Chloride (Flush - Normal Saline) 10 ml IVF PRN PRN PRN Reason: Saline Flush Zolpidem Tartrate (Ambien) 5 mg PO HSPRN PRN PRN Reason: Insomnia
[2018-07-24] MEDS: Atorvastatin Calcium 20 MG TAB PO SCH (19:51)
[2018-07-24] MEDS: Acetaminophen 325 MG TAB PO PRN (19:52)
[2018-07-25 05:27] LABS: #Monocytes 1.1 thou/uL (0.11-0.59); #Neutrophils 17.6 thou/uL (1.40-6.50); %Basophils 0.1 % (0.0-1.0); %Eosinophils 0.1 % (0.0-10.0); %Lymphocytes 9.8 % (21.0-51.0); %Monocytes 5.4 % (0.0-10.0); %Neutrophils 84.7 % (42.0-75.0); Hemoglobin 13.8 g/dL (14.0-18.0); Mean Corpuscular HGB CONC 33.7 g/dL (32.0-36.0); Mean Corpuscular Hemoglobin 32.3 pg (27.0-31.0); Mean Corpuscular Volume 95.9 fL (78.0-98.0); Mean Platelet Volume 8.1 fL (7.4-10.4); Platelet Count 251 thou/uL (130-400); RBC Distribution Width 12.9 % (11.5-14.5); Red Blood Cell (RBC) Count 4.26 mill/uL (4.70-6.10); White Blood Cell (WBC) Count 20.8 thou/uL (4.8-10.8)
[2018-07-25 05:53] LABS: Anion Gap 11 mmol/L (10-20); BUN (Urea Nitrogen) 14 mg/dL (8.4-25.7); Calc. Creatinine Clearance 113 mL/min (70-130); Calcium 8.4 mg/dL (7.8-10.44); Carbon Dioxide 23 mmol/L (23-31); Chloride 108 mmol/L (98-107); Estimated GFR-MDRD Greater than 90; Glucose 140 mg/dL (83-110); Potassium 3.7 mmol/L (3.5-5.1); Sodium 138 mmol/L (136-145)
[2018-07-25] MEDS: Cefdinir 300 MG CAP PO SCH ×2 (08:30→20:33)
[2018-07-25] MEDS: Benzonatate 100 MG CAP PO SCH ×4 (08:30→20:32)
[2018-07-25] MEDS: predniSONE 20 MG TAB PO SCH (08:30)
[2018-07-25] MEDS: guaiFENesin ER 600 MG TAB PO SCH ×2 (08:31→20:34)
[2018-07-25] MEDS: Oseltamivir 75 MG CAP PO SCH ×2 (08:31→20:42)
[2018-07-25] MEDS: Rivaroxaban 10 MG TAB PO SCH (08:31)
--- NOTE | 2018-07-25 16:10 | PRG ---
DATE OF SERVICE: 07/25/2018 SUBJECTIVE: The patient is seen and examined at bedside. His is present in the room. He feels better. He is still on oxygen. His appetite is fair. OBJECTIVE: VITAL SIGNS: Blood pressure is 104/69, pulse is 82, respiratory rate is 24, O2 saturation is 93% on 2 L, and temperature is 97.5. HEENT: His head is atraumatic and normocephalic. Eyes are PERRLA. Sclerae are nonicteric. Oral mucosa is moist. NECK: Supple. LUNGS: Rales present at the left mid portion of the left lung. HEART: S1 and S2 normal. No S3. No S4. ABDOMEN: Soft, nontender. Bowel sounds are present. No organomegaly. EXTREMITIES: No clubbing, cyanosis or edema. NEUROLOGICAL: He is alert and oriented x4. There is no any motor or sensory deficits present. Cranial nerves are intact. LABORATORY DATA: Labs showed white count of 20.8, hemoglobin 13.5, hematocrit 40.9, platelet count is 251,000. Sodium of 138, potassium 3.7, chloride 108, CO2 of 23, BUN 14, creatinine 0.73. Glycemia is ranging from 114 to 161. Calcium 8.4. Microbiology, PCR for respiratory virus is negative. IMPRESSION: 1. Community-acquired pneumonia. 2. Influenza B. 3. Acute respiratory failure with hypoxia. 4. History of nonspecific interstitial PNA. 5. Dyslipidemia. 6. Hypertension. PLAN: Continue on prednisone, nebs, Tamiflu, and Omnicef. Try to wean him off his oxygen Job ID: [id number]
--- NOTE | 2018-07-25 16:54 | PRG ---
DATE OF SERVICE: 07/25/2018 SUBJECTIVE: Matias Shepherd has no new complaints today. He says he is feeling better. OBJECTIVE: VITAL SIGNS: His oximetry is still 93 on 2 L. He is afebrile. Heart rate is 82. LUNGS: Still remarkable for crackles at both lung bases. HEART: Regular rhythm. ABDOMEN: Soft. IMPRESSION: 1. Community-acquired pneumonia. 2. History of nonspecific interstitial pneumonitis. PLAN: To get a chest x-ray in the morning. Hopefully, he is a candidate for discharge tomorrow. Job ID: [id number]
[2018-07-25] MEDS: Atorvastatin Calcium 20 MG TAB PO SCH (20:34)
--- NOTE | 2018-07-26 07:44 | RAD ---
FRadiograph chest one view: 07/26/2018 7:24 AM HISTORY: 73-year-old male for follow-up of pneumonia COMPARISON: 07/23/2018 FINDINGS: The alveolar infiltrate at the left lower lung zone appears similar to that of the prior study. The m ilder infiltrate at right lower lung zone may be chronic. There was an alveolar infiltrate in the rig ht midlung zone which has improved. The mid and upper lung zones remain clear. No cardiomegaly. IMPRESSION: 1. Interval improvement in the infiltrate at the right midlung zone. 2. No interval change in the infiltrate in the left lower lung zone, evidence for pneumonia
[2018-07-26 08:20] LABS: Hemoglobin 15.4 g/dL (14.0-18.0); Mean Corpuscular HGB CONC 31.7 g/dL (32.0-36.0); Mean Corpuscular Hemoglobin 30.3 pg (27.0-31.0); Mean Corpuscular Volume 95.6 fL (78.0-98.0); Mean Platelet Volume 7.7 fL (7.4-10.4); Platelet Count 333 thou/uL (130-400); White Blood Cell (WBC) Count 23.7 thou/uL (4.8-10.8)
[2018-07-26] MEDS: Cefdinir 300 MG CAP PO SCH (09:04)
[2018-07-26] MEDS: predniSONE 20 MG TAB PO SCH (09:04)
[2018-07-26] MEDS: guaiFENesin ER 600 MG TAB PO SCH (09:04)
[2018-07-26] MEDS: Benzonatate 100 MG CAP PO SCH ×2 (09:04→14:44)
[2018-07-26] MEDS: Rivaroxaban 10 MG TAB PO SCH (09:05)
[2018-07-26] MEDS: Oseltamivir 75 MG CAP PO SCH (10:17)
[2018-07-26 10:43] LABS: Band 2 % (5-11); Eosinophils 1 % (0-10); Lymphocytes 12 % (21-51); MDiff Complete? YES; Monocytes 11 % (0-10); Neutrophil 74 % (42-75); Platelet Morphology Comment Appears Adequate; RBC Morphology Normal
[2018-07-26 15:10] VITALS: BP 113/73; TEMP 97.4
--- NOTE | 2018-07-26 19:19 | PRG ---
DATE OF SERVICE: 07/26/2018 SUBJECTIVE: Matias Shepherd is feeling better. He is on room air. He is in no distress. Vital Signs been stable. He still has crackles in both lung bases. Chest radiograph still shows more of an infiltrate at the left base in the right. We will go home, complete his antibiotics, start on 40 mg of prednisone and taper to 20 mg in 4 days. I will see him in 2 weeks. We will repeat a chest x-ray. At this time, I doubt that this is a recurrence of his nonspecific interstitial pneumonitis, but certainly remains in the differential. We will treat him for community-acquired bacterial pneumonia. He appears to be improving. Suspect that it is correct diagnosis. Job ID: [id number]
--- NOTE | 2018-07-27 02:10 | DIS ---
DATE OF ADMISSION: 07/23/2018 DATE OF DISCHARGE: 07/26/2018 FINAL DIAGNOSES: 1. Community-acquired pneumonia. 2. Nonspecific interstitial pneumonitis. 3. Influenza B. 4. Acute respiratory failure with hypoxia. 5. Dyslipidemia. 6. Hypertension. CONSULTANTS: Dr. Bhatia, Pulmonary Service. HOSPITAL COURSE: The patient was a 73-year-old male who was admitted to the hospital with fever and cough, which was going on for 2 days. There was also shortness of breath which was progressively getting worse. The temperature went up to 103. He felt very weak and came to the emergency room for further evaluation. He is the Dr. Bhatia's patient. During this emergency room visit, he was tachypneic and tachycardic with respiratory rates going up to 34. He was placed on BiPAP because of hypoxemia and got admitted to the hospital. His past medical history is positive for nonspecific interstitial pneumonitis status post biopsy. At the time of emergency room evaluation, [place] [address], H and H was 15 and 48, platelet count was 226 with 81% neutrophils. PT was 19.8, INR 1.7. ABG showed pH of 7.43, pCO2 33, PO2 50, bicarb 21, BUN 8, creatinine 0.8, serum glucose 179. Lactic acid was 2.3. Cardiac enzymes negative. BNP 26. Influenza B antigen was positive on the nasal swab. Chest x-ray showed multifocal infiltrates. He was admitted to the [facility]. His BiPAP was continued. He was on Tamiflu, Zithromax, and ceftriaxone along with DuoNeb and IV steroids. His Xarelto was continued. Dr. Bhatia was consulted and he saw the patient. He felt that this was community-acquired pneumonia. He recommended the regimen. He was placed on oxygen. His BiPAP was weaned off and he was able to maintain saturation in good range on nasal cannula. His respiratory PCR virus panel came back negative. He was switched to p.o. steroids and p.o. antibiotic. Today, his blood pressure is 113/73, pulse is 93, temperature is 97.4, respiratory rate is 14, O2 saturation is 97% on room air. The patient is seen and examined before his discharge. Physical examination reveals few crackles at both bases. Heart; S1 and S2 normal. Abdomen is soft, nontender. It was discussed with Dr. Bhatia before the patient was discharged and he is planing to see him in 2 weeks. DISCHARGE MEDICATIONS: 1. Augmentin 875/125 one tab twice a day for 10 days. 2. Tessalon Perles 100 mg three times a day. 3. Nebulizers q.4 hours. 4. Tamiflu for additional 2 days. 5. Prednisone 40 mg for one week, then 20 mg once a day. 6. Xarelto 10 mg once a day. 7. Atorvastatin 20 mg at bedtime. DIET: He will stay on low-salt heart-healthy diet. ACTIVITIES: As tolerated. DISPOSITION: Home. FOLLOWUP: Follow up with Dr. Bhatia in 2 weeks. Job ID: [id number]
== END 2018-07-26 16:26 | disposition home or self-care (01) | DRG 871 ==
LOC: ERS → ERHOLD 00:51 → IMCU/EMU 10:52 → SURG A 07-25 11:32
PROVIDERS: ADMIT Internal Medicine; ATTEND Internal Medicine
PROC: 5A09457 Assistance with Respiratory Ventilation, 24-96 Consecutive Hours, Continuous Positive Airway Pressure (ICD-10-PCS; principal; 2018-07-23)
DX: A41.89 Other specified sepsis (principal); J96.01 Acute respiratory failure with hypoxia; J10.00 Influenza due to other identified influenza virus with unspecified type of pneumonia; I10 Essential (primary) hypertension; E78.5 Hyperlipidemia, unspecified; Z79.01 Long term (current) use of anticoagulants; Z87.891 Personal history of nicotine dependence; Z86.718 Personal history of other venous thrombosis and embolism; Z79.52 Long term (current) use of systemic steroids
CPT/HCPCS: 36415; 36416; 71045; 80048; 82805; 83605; 85025; 87633; 94640; 94660; J0456; J0696; J1650; J2060; J2270; J2920; J7050; J7620

== ENCOUNTER 2018-08-21 07:43 | Outpatient (CLI) | payer OTHER ==
--- NOTE | 2018-08-21 08:07 | RAD ---
2 views chest: 08/21/2018 COMPARISON: 05/08/2017 HISTORY: Dyspnea FINDINGS: Increased linear interstitial density with pulmonary hyperinflation noted, consistent with COPD in the proper clinical setting, stable. No pneumothorax, pleural fluid, focal consolidation, or alveolar edema. Osseous structures appear stable when compared to the prior exam. IMPRESSION: Chronic stable findings as described above.
== END 2018-08-21 07:44 | disposition home or self-care (01) ==
LOC: RAD 07:43
PROVIDERS: ATTEND Internal Medicine Critical Care Medicine
DX: R06.00 Dyspnea, unspecified (principal)
CPT/HCPCS: 71046

== ENCOUNTER 2019-02-09 15:53 | Emergency (ER) | payer MEDICAID, SELFPAY ==
--- NOTE | 2019-02-09 19:26 | ULT ---
RIGHT LOWER EXTREMITY VENOUS DOPPLER WITH SPECTRAL ANALYSIS AND COLORFLOW EVALUATION: HISTORY: Right leg pain. FINDINGS: There is decreased lumen compressibility with increased echogenic material seen within the proximal r ight profunda femoral vein as well as involving the proximal, mid and distal superficial femoral vein as well as the right lower extremity popliteal vein. There is flow seen within these veins compatibl e with nonocclusive DVT. There is normal flow and lumen compressibility seen in the right lower extre mity common femoral vein with flow seen in the right lower extremity posterior tibial vein. Normal jose men compressibility and flow is seen in the right lower extremity greater saphenous vein. There was evidence of extensive occlusive DVT throughout the right lower extremity venous structures on a prior study on 03/26/2017. IMPRESSION: Nonocclusive thrombus within the right lower extremity profunda femoral, superficial femoral and popl iteal veins. The results of this study were provided to Erika, patient's nurse in the emergency department, by Ward mota, the [employer] worker at the time of this examination on 02/09/2019 at 1815 hours. CODE CR POS: OFF
== END 2019-02-09 18:27 | disposition home or self-care (01) ==
LOC: ERS 15:53
DX: I82.431 Acute embolism and thrombosis of right popliteal vein (principal); I82.411 Acute embolism and thrombosis of right femoral vein; E78.5 Hyperlipidemia, unspecified; Z86.711 Personal history of pulmonary embolism; Z87.891 Personal history of nicotine dependence; Z79.899 Other long term (current) drug therapy
CPT/HCPCS: 94760

== ENCOUNTER 2021-12-30 10:26 | Emergency (ER) | payer SELFPAY | END 2021-12-30 13:36 | disposition home or self-care (01) | LOC: ERS 10:26 | DX: I82.401 Acute embolism and thrombosis of unspecified deep veins of right lower extremity (principal); E78.5 Hyperlipidemia, unspecified; Z87.891 Personal history of nicotine dependence; Z79.01 Long term (current) use of anticoagulants; Z79.899 Other long term (current) drug therapy ==

== ENCOUNTER 2022-03-18 16:38 | Inpatient (IN) | payer MEDICAID, SELFPAY ==
[2022-03-18] MEDS ORDERED: Acetaminophen 325 MG TAB PO PRN (19:51)
[2022-03-18 20:07] LABS: #Eosinphils 0.2 thou/uL (0.0-0.7); #Lymphocytes 2.8 thou/uL (1.20-3.40); #Monocytes 1.3 thou/uL (0.11-0.59); %Basophils 0.3 % (0.0-1.0); %Eosinophils 1.3 % (0.0-10.0); %Lymphocytes 18.1 % (21.0-51.0); %Monocytes 8.4 % (0.0-10.0); %Neutrophils 71.9 % (42.0-75.0); Hemoglobin 16.6 g/dL (14.0-18.0); Mean Corpuscular HGB CONC 33.2 g/dL (32.0-36.0); Mean Corpuscular Hemoglobin 32.6 pg (27.0-31.0); Platelet Count 230 10x3/uL (130-400); RBC Distribution Width 12.5 % (11.5-14.5); Red Blood Cell (RBC) Count 5.09 mill/uL (4.70-6.10); White Blood Cell (WBC) Count 15.3 10x3/uL (4.8-10.8)
[2022-03-18 20:26] LABS: Anion Gap 12 mmol/L (10-20); BUN (Urea Nitrogen) 7 mg/dL (8.4-25.7); Calc. Creatinine Clearance 0 mL/min (70-130); Calcium 8.4 mg/dL (7.8-10.44); Carbon Dioxide 22 mmol/L (23-31); Chloride 105 mmol/L (98-107); Estimated GFR 92; Glucose 105 mg/dL (83-110); Potassium 4.3 mmol/L (3.5-5.1); Sodium 135 mmol/L (136-145)
[2022-03-18 20:32] LABS: Troponin I Less than 0.010 ng/mL (< 0.028)
[2022-03-18] MEDS ORDERED: Dextrose 5 %-0.45 % NaCl 1,000 ML IV SCH (20:45)
[2022-03-18] MEDS: cefTRIAXone\\ROCEPHIN 1 GM in Sodium Chloride 0.9% 100 ML IVPB SCH (23:10)
[2022-03-18] MEDS: Famotidine 20 MG TAB PO SCH (23:10)
[2022-03-18 23:25] LABS: Troponin I Less than 0.010 ng/mL (< 0.028)
[2022-03-19 00:12] VITALS: BMI 29.9
[2022-03-19 02:17] LABS: Troponin I Less than 0.010 ng/mL (< 0.028)
[2022-03-19 06:44] LABS: #Eosinphils 0.2 thou/uL (0.0-0.7); #Lymphocytes 2.8 thou/uL (1.20-3.40); #Monocytes 1.4 thou/uL (0.11-0.59); #Neutrophils 9.1 thou/uL (1.40-6.50); %Basophils 0.2 % (0.0-1.0); %Eosinophils 1.3 % (0.0-10.0); %Lymphocytes 20.6 % (21.0-51.0); %Monocytes 10.4 % (0.0-10.0); %Neutrophils 67.6 % (42.0-75.0); Hemoglobin 16.1 g/dL (14.0-18.0); Mean Corpuscular HGB CONC 32.3 g/dL (32.0-36.0); Mean Corpuscular Hemoglobin 31.2 pg (27.0-31.0); Mean Corpuscular Volume 96.7 fl (78.0-98.0); Mean Platelet Volume 8.5 fL (7.4-10.4); Platelet Count 235 10x3/uL (130-400); RBC Distribution Width 12.5 % (11.5-14.5); Red Blood Cell (RBC) Count 5.16 mill/uL (4.70-6.10); White Blood Cell (WBC) Count 13.5 10x3/uL (4.8-10.8)
[2022-03-19 07:05] LABS: ALT (SGPT) 20 U/L (8-55); AST (SGOT) 16 U/L (5-34); Albumin 3.6 g/dL (3.4-4.8); Alkaline Phosphatase 109 U/L (40-110); Anion Gap 11 mmol/L (10-20); BUN (Urea Nitrogen) 6 mg/dL (8.4-25.7); Bilirubin, Total 1.1 mg/dL (0.2-1.2); Calc. Creatinine Clearance 97 mL/min (70-130); Calcium 8.5 mg/dL (7.8-10.44); Carbon Dioxide 21 mmol/L (23-31); Chloride 106 mmol/L (98-107); Estimated GFR 94; Globulin 4.3 g/dL (2.4-3.5); Glucose 103 mg/dL (83-110); Potassium 3.6 mmol/L (3.5-5.1); Protein, Total 7.9 g/dL (5.8-8.1); Sodium 134 mmol/L (136-145)
[2022-03-19] MEDS: Famotidine 20 MG TAB PO SCH ×2 (08:58→21:17)
[2022-03-19] MEDS: HYDROcodone/Acetaminophen 5/325 mg Tablet PO PRN (17:31)
[2022-03-19] MEDS: Apixaban 5 MG TAB PO SCH (21:17)
[2022-03-19] MEDS: cefTRIAXone\\ROCEPHIN 1 GM in Sodium Chloride 0.9% 100 ML IVPB SCH (21:22)
[2022-03-20] MEDS: HYDROcodone/Acetaminophen 5/325 mg Tablet PO PRN ×2 (05:12→20:56)
[2022-03-20 05:58] LABS: #Eosinphils 0.5 thou/uL (0.0-0.7); #Lymphocytes 3.2 thou/uL (1.20-3.40); #Monocytes 1.5 thou/uL (0.11-0.59); #Neutrophils 9.1 thou/uL (1.40-6.50); %Basophils 0.3 % (0.0-1.0); %Eosinophils 3.8 % (0.0-10.0); %Lymphocytes 22.4 % (21.0-51.0); %Monocytes 10.5 % (0.0-10.0); %Neutrophils 63.1 % (42.0-75.0); Hemoglobin 17.9 g/dL (14.0-18.0); Mean Corpuscular HGB CONC 33.9 g/dL (32.0-36.0); Mean Corpuscular Hemoglobin 32.8 pg (27.0-31.0); Mean Corpuscular Volume 96.9 fl (78.0-98.0); Mean Platelet Volume 8.2 fL (7.4-10.4); Platelet Count 229 10x3/uL (130-400); RBC Distribution Width 12.5 % (11.5-14.5); Red Blood Cell (RBC) Count 5.45 mill/uL (4.70-6.10); White Blood Cell (WBC) Count 14.4 10x3/uL (4.8-10.8)
[2022-03-20 06:14] LABS: Anion Gap 13 mmol/L (10-20); BUN (Urea Nitrogen) 9 mg/dL (8.4-25.7); Calc. Creatinine Clearance 98 mL/min (70-130); Calcium 8.7 mg/dL (7.8-10.44); Carbon Dioxide 20 mmol/L (23-31); Chloride 104 mmol/L (98-107); Estimated GFR 94; Glucose 106 mg/dL (83-110); Potassium 3.7 mmol/L (3.5-5.1); Sodium 133 mmol/L (136-145)
[2022-03-20] MEDS: Apixaban 5 MG TAB PO SCH ×2 (09:15→20:56)
[2022-03-20] MEDS: Famotidine 20 MG TAB PO SCH ×2 (09:15→20:56)
[2022-03-20] MEDS: cefTRIAXone\\ROCEPHIN 1 GM in Sodium Chloride 0.9% 100 ML IVPB SCH (21:01)
[2022-03-21 06:13] LABS: #Basophils 0.1 thou/uL (0.0-0.2); #Eosinphils 0.7 thou/uL (0.0-0.7); #Lymphocytes 3.6 thou/uL (1.20-3.40); #Monocytes 1.9 thou/uL (0.11-0.59); %Basophils 0.5 % (0.0-1.0); %Eosinophils 4.6 % (0.0-10.0); %Lymphocytes 25.5 % (21.0-51.0); %Monocytes 13.1 % (0.0-10.0); %Neutrophils 56.3 % (42.0-75.0); Hemoglobin 17.8 g/dL (14.0-18.0); Mean Corpuscular HGB CONC 33.2 g/dL (32.0-36.0); Mean Corpuscular Hemoglobin 32.5 pg (27.0-31.0); Mean Corpuscular Volume 98.1 fl (78.0-98.0); Mean Platelet Volume 7.9 fL (7.4-10.4); Platelet Count 242 10x3/uL (130-400); RBC Distribution Width 12.5 % (11.5-14.5); Red Blood Cell (RBC) Count 5.48 mill/uL (4.70-6.10); White Blood Cell (WBC) Count 14.3 10x3/uL (4.8-10.8)
[2022-03-21 06:38] LABS: Anion Gap 13 mmol/L (10-20); BUN (Urea Nitrogen) 12 mg/dL (8.4-25.7); Calc. Creatinine Clearance 91 mL/min (70-130); Calcium 8.6 mg/dL (7.8-10.44); Carbon Dioxide 21 mmol/L (23-31); Chloride 104 mmol/L (98-107); Estimated GFR 92; Glucose 92 mg/dL (83-110); Potassium 3.6 mmol/L (3.5-5.1); Sodium 134 mmol/L (136-145)
[2022-03-21] MEDS: Famotidine 20 MG TAB PO SCH ×2 (09:19→21:30)
[2022-03-21] MEDS: Apixaban 5 MG TAB PO SCH ×2 (09:19→21:30)
[2022-03-21] MEDS: HYDROcodone/Acetaminophen 5/325 mg Tablet PO PRN (21:29)
[2022-03-21] MEDS: Senokot S 8.6-50 MG TAB PO PRN (21:29)
[2022-03-22 05:34] LABS: #Basophils 0.1 thou/uL (0.0-0.2); #Eosinphils 0.8 thou/uL (0.0-0.7); #Lymphocytes 3.1 thou/uL (1.20-3.40); #Monocytes 1.9 thou/uL (0.11-0.59); #Neutrophils 7.3 thou/uL (1.40-6.50); %Basophils 0.6 % (0.0-1.0); %Eosinophils 5.8 % (0.0-10.0); %Lymphocytes 23.6 % (21.0-51.0); %Monocytes 14.4 % (0.0-10.0); %Neutrophils 55.7 % (42.0-75.0); Hemoglobin 17.5 g/dL (14.0-18.0); Mean Corpuscular HGB CONC 33.2 g/dL (32.0-36.0); Mean Corpuscular Hemoglobin 32.3 pg (27.0-31.0); Mean Corpuscular Volume 97.3 fl (78.0-98.0); Mean Platelet Volume 8.1 fL (7.4-10.4); Platelet Count 247 10x3/uL (130-400); RBC Distribution Width 12.5 % (11.5-14.5); White Blood Cell (WBC) Count 13.1 10x3/uL (4.8-10.8)
[2022-03-22 05:52] LABS: Anion Gap 11 mmol/L (10-20); BUN (Urea Nitrogen) 12 mg/dL (8.4-25.7); Calc. Creatinine Clearance 91 mL/min (70-130); Calcium 8.9 mg/dL (7.8-10.44); Carbon Dioxide 22 mmol/L (23-31); Chloride 104 mmol/L (98-107); Estimated GFR 92; Glucose 93 mg/dL (83-110); Potassium 3.8 mmol/L (3.5-5.1); Sodium 133 mmol/L (136-145)
[2022-03-22] MEDS: Apixaban 5 MG TAB PO SCH ×2 (09:24→21:34)
[2022-03-22] MEDS: Famotidine 20 MG TAB PO SCH ×2 (09:24→21:34)
[2022-03-22] MEDS: Senokot S 8.6-50 MG TAB PO PRN (09:25)
[2022-03-22] MEDS: Polyethylene Glycol 3350 17 GM Packet PO SCH ×2 (09:25→21:39)
[2022-03-23] MEDS: HYDROcodone/Acetaminophen 5/325 mg Tablet PO PRN ×2 (02:01→21:48)
[2022-03-23 05:47] LABS: #Basophils 0.1 thou/uL (0.0-0.2); #Eosinphils 0.7 thou/uL (0.0-0.7); #Lymphocytes 3.6 thou/uL (1.20-3.40); #Monocytes 1.8 thou/uL (0.11-0.59); #Neutrophils 8.7 thou/uL (1.40-6.50); %Basophils 0.7 % (0.0-1.0); %Eosinophils 4.4 % (0.0-10.0); %Lymphocytes 24.2 % (21.0-51.0); %Monocytes 11.9 % (0.0-10.0); %Neutrophils 58.8 % (42.0-75.0); Hemoglobin 17.2 g/dL (14.0-18.0); Mean Corpuscular HGB CONC 32.6 g/dL (32.0-36.0); Mean Corpuscular Volume 98.1 fl (78.0-98.0); Mean Platelet Volume 8.2 fL (7.4-10.4); Platelet Count 250 10x3/uL (130-400); RBC Distribution Width 12.2 % (11.5-14.5); Red Blood Cell (RBC) Count 5.39 mill/uL (4.70-6.10); White Blood Cell (WBC) Count 14.8 10x3/uL (4.8-10.8)
[2022-03-23 06:07] LABS: Anion Gap 10 mmol/L (10-20); BUN (Urea Nitrogen) 11 mg/dL (8.4-25.7); Calc. Creatinine Clearance 97 mL/min (70-130); Calcium 8.6 mg/dL (7.8-10.44); Carbon Dioxide 24 mmol/L (23-31); Chloride 102 mmol/L (98-107); Estimated GFR 94; Glucose 87 mg/dL (83-110); Potassium 3.8 mmol/L (3.5-5.1); Sodium 132 mmol/L (136-145)
[2022-03-23] MEDS: Polyethylene Glycol 3350 17 GM Packet PO SCH ×2 (09:15→21:46)
[2022-03-23] MEDS: Apixaban 5 MG TAB PO SCH ×2 (09:16→21:46)
[2022-03-23] MEDS: Famotidine 20 MG TAB PO SCH ×2 (09:16→21:46)
[2022-03-24 06:15] LABS: #Eosinphils 0.5 thou/uL (0.0-0.7); #Lymphocytes 2.9 thou/uL (1.20-3.40); #Monocytes 1.7 thou/uL (0.11-0.59); #Neutrophils 6.4 thou/uL (1.40-6.50); %Basophils 0.4 % (0.0-1.0); %Eosinophils 4.7 % (0.0-10.0); %Lymphocytes 24.6 % (21.0-51.0); %Monocytes 14.6 % (0.0-10.0); %Neutrophils 55.8 % (42.0-75.0); Hemoglobin 16.9 g/dL (14.0-18.0); Mean Corpuscular HGB CONC 33.2 g/dL (32.0-36.0); Mean Corpuscular Hemoglobin 32.1 pg (27.0-31.0); Mean Corpuscular Volume 96.6 fl (78.0-98.0); Mean Platelet Volume 8.5 fL (7.4-10.4); Platelet Count 233 10x3/uL (130-400); RBC Distribution Width 12.3 % (11.5-14.5); Red Blood Cell (RBC) Count 5.25 mill/uL (4.70-6.10); White Blood Cell (WBC) Count 11.6 10x3/uL (4.8-10.8)
[2022-03-24 06:37] LABS: Anion Gap 12 mmol/L (10-20); BUN (Urea Nitrogen) 11 mg/dL (8.4-25.7); Calc. Creatinine Clearance 88 mL/min (70-130); Calcium 8.6 mg/dL (7.8-10.44); Carbon Dioxide 25 mmol/L (23-31); Chloride 102 mmol/L (98-107); Estimated GFR 91; Glucose 85 mg/dL (83-110); Sodium 135 mmol/L (136-145)
[2022-03-24] MEDS: Famotidine 20 MG TAB PO SCH ×2 (07:49→20:47)
[2022-03-24] MEDS: Polyethylene Glycol 3350 17 GM Packet PO SCH ×2 (07:50→20:48)
[2022-03-24] MEDS: Apixaban 5 MG TAB PO SCH ×2 (07:50→20:47)
[2022-03-24] MEDS: HYDROcodone/Acetaminophen 5/325 mg Tablet PO PRN (20:50)
[2022-03-25] MEDS: Famotidine 20 MG TAB PO SCH (08:08)
[2022-03-25] MEDS: Apixaban 5 MG TAB PO SCH (08:08)
[2022-03-25] MEDS: Polyethylene Glycol 3350 17 GM Packet PO SCH (08:08)
[2022-03-25 12:12] VITALS: BP 117/77; TEMP 98.4
== END 2022-03-25 15:19 | disposition home or self-care (01) | DRG 199 ==
LOC: ERS 16:38 → SJJU 19:51
PROVIDERS: ADMIT Student in an Organized Health Care Education/Training Program; ATTEND Hospitalist
PROC: 0W9930Z Drainage of Right Pleural Cavity with Drainage Device, Percutaneous Approach (ICD-10-PCS; principal; 2022-03-18)
DX: J93.83 Other pneumothorax (principal); J96.91 Respiratory failure, unspecified with hypoxia; R09.02 Hypoxemia; E78.5 Hyperlipidemia, unspecified; J98.2 Interstitial emphysema; G62.9 Polyneuropathy, unspecified; Z86.711 Personal history of pulmonary embolism; Z86.718 Personal history of other venous thrombosis and embolism; Z79.01 Long term (current) use of anticoagulants; Z79.899 Other long term (current) drug therapy; Z87.01 Personal history of pneumonia (recurrent); Z87.891 Personal history of nicotine dependence; Z79.52 Long term (current) use of systemic steroids; J95.812 Postprocedural air leak; Y83.8 Other surgical procedures as the cause of abnormal reaction of the patient, or of later complication, without mention of misadventure at the time of the procedure
CPT/HCPCS: 32551; 36415; 71045; 71046; 71250; 80048; 80053; 84484; 85025; 93005; J0696; J3490; J7042; J7620

== ENCOUNTER 2022-04-17 13:08 | Outpatient (CLI) | payer OTHER | END 2022-04-17 13:09 | disposition home or self-care (01) | LOC: RAD 13:08 | PROVIDERS: ATTEND Thoracic Surgery (Cardiothoracic Vascular Surgery) | DX: J93.9 Pneumothorax, unspecified (principal); R91.8 Other nonspecific abnormal finding of lung field | CPT/HCPCS: 71046 ==

== ENCOUNTER 2023-06-10 08:44 | Outpatient (CLI) | payer MEDICAID, OTHER | END 2023-06-10 08:45 | disposition home or self-care (01) | LOC: RAD 08:44 → BICRAD 08:45 | PROVIDERS: ATTEND Internal Medicine Critical Care Medicine | DX: R06.00 Dyspnea, unspecified (principal); J84.9 Interstitial pulmonary disease, unspecified | CPT/HCPCS: 71046 ==

== ENCOUNTER 2025-03-10 23:12 | Inpatient (IN) | payer MEDICAID, SELFPAY ==
[2025-03-10] MEDS ORDERED: Dexamethasone 10 MG/ML VIAL ONE (23:34)
[2025-03-10] MEDS ORDERED: Magnesium 2 GM/50 ML BAG (IN WATER) ONE (23:34)
[2025-03-10 23:36] LABS: Actual Bicarbonate (HCO3v) 21.3 mEq/L (22-28); Analyzer IN Cardio ER; Base Excess -1.6 mEq/L (-2.0 to +3.0); Calcium, Ionized (venous) 1.10 mmol/L (1.16-1.32); Chloride (VBG) 104 mmol/L (98-106); Hematocrit-VBG 53 % (42.0-52.0); Hemoglobin (Hb) 17.9 g/dL (12.6-17.4); Potassium (VBG) 4.11 mmol/L (3.70-5.30); Sodium 140 mmol/L (133-146)
[2025-03-10] MEDS ORDERED: Ondansetron PF 4 MG/2 ML Vial ONE (23:42)
[2025-03-10] MEDS ORDERED: Ketamine In 0.9 % NaCl 50 MG/5 ML SYRINGE ONE (23:42)
[2025-03-10 23:44] LABS: #Basophils 0.08 10x3/uL (0.0-0.2); #Eosinophils 0.39 10x3/uL (0.0-0.7); #Monocytes 1.13 10x3/uL (0.11-0.59); #Neutrophils 9.15 10x3/uL (1.40-6.50); %Basophils 0.6 % (0.0-1.0); %Eosinophils 2.7 % (0.0-10.0); %Lymphocytes 24.6 % (21.0-51.0); %Monocytes 7.8 % (0.0-10.0); %Neutrophils 63.5 % (42.0-75.0); Hematocrit 49.4 % (42.0-52.0); Hemoglobin 16.3 g/dL (14.0-18.0); Mean Corpuscular Hemoglobin 30.8 pg (27.0-31.0); Mean Corpuscular Volume 93.2 fL (78.0-98.0); Platelet Count 258 10x3/uL (130-400); Red Blood Cell (RBC) Count 5.30 mill/uL (4.70-6.10); White Blood Cell (WBC) Count 14.41 10x3/uL (4.8-10.8)
[2025-03-11 00:21] LABS: ALT (SGPT) 13 U/L (Less than 45); AST (SGOT) 30 U/L (11-34); Albumin 3.9 g/dL (3.1-4.5); Alkaline Phosphatase 109 U/L (40-110); Anion Gap 14 mmol/L (10-20); BUN (Urea Nitrogen) 6 mg/dL (8.4-25.7); Bilirubin, Total 0.7 mg/dL (0.3-1.2); Calc. Creatinine Clearance 0 mL/min (70-130); Calcium 8.8 mg/dL (7.8-10.44); Carbon Dioxide 20 mmol/L (23-31); Chloride 106 mmol/L (98-107); Globulin 5.4 g/dL (2.4-3.5); Glucose 104 mg/dL (83-110); Potassium 4.1 mmol/L (3.5-5.1); Sodium 136 mmol/L (136-145)
[2025-03-11] MEDS ORDERED: Calcium Carbonate 500 MG ChewTAB PO PRN (01:09)
[2025-03-11] MEDS ORDERED: Ondansetron PF 4 MG/2 ML Vial IVP PRN (01:09)
[2025-03-11] MEDS ORDERED: Electrolyte Replacement Protocol 1 EACH FS SCH (01:15)
[2025-03-11 02:51] VITALS: BMI 28.6
[2025-03-11 03:07] LABS: #Basophils 0.07 10x3/uL (0.0-0.2); #Eosinophils 0.03 10x3/uL (0.0-0.7); #Monocytes 0.10 10x3/uL (0.11-0.59); #Neutrophils 11.35 10x3/uL (1.40-6.50); %Basophils 0.5 % (0.0-1.0); %Eosinophils 0.2 % (0.0-10.0); %Lymphocytes 14.0 % (21.0-51.0); %Monocytes 0.7 % (0.0-10.0); %Neutrophils 83.6 % (42.0-75.0); Hematocrit 47.7 % (42.0-52.0); Hemoglobin 15.5 g/dL (14.0-18.0); Mean Corpuscular Hemoglobin 30.6 pg (27.0-31.0); Mean Corpuscular Volume 94.1 fL (78.0-98.0); Platelet Count 229 10x3/uL (130-400); Red Blood Cell (RBC) Count 5.07 mill/uL (4.70-6.10); White Blood Cell (WBC) Count 13.58 10x3/uL (4.8-10.8)
[2025-03-11 03:26] LABS: ALT (SGPT) 12 U/L (Less than 45); AST (SGOT) 22 U/L (11-34); Albumin 3.6 g/dL (3.1-4.5); Alkaline Phosphatase 108 U/L (40-110); Anion Gap 13 mmol/L (10-20); BUN (Urea Nitrogen) 7 mg/dL (8.4-25.7); Bilirubin, Total 0.7 mg/dL (0.3-1.2); Calc. Creatinine Clearance 96 mL/min (70-130); Calcium 8.4 mg/dL (7.8-10.44); Carbon Dioxide 20 mmol/L (23-31); Chloride 107 mmol/L (98-107); Globulin 5.2 g/dL (2.4-3.5); Glucose 132 mg/dL (83-110); Potassium 4.6 mmol/L (3.5-5.1); Sodium 135 mmol/L (136-145)
[2025-03-11 03:35] LABS: Actual Bicarbonate (HCO3a) 23.2 mEq/L (22-28); Base Excess (BEa) -2.4 mEq/L (-2.0 to +3.0); CO2 Tension 43.0 mmHg (35.0-45.0); Calcium, Ionized (arterial) 1.18 mmol/L (1.12-1.30); Hematocrit-ABG 50 % (42.0-52.0); Hemoglobin (Hb) 17.0 g/dL (14.0-18.0); O2 Tension (PaO2), arterial 68.9 mmHg (> 70.0); Potassium - ABG Lab 4.51 mmol/L (3.70-5.30); pH, Arterial 7.350 (7.35-7.45)
[2025-03-11 03:37] LABS: Puncture Site Left Radial artery
[2025-03-11] MEDS: cefTRIAXone\\ROCEPHIN 1 GM in Sodium Chloride 0.9% 100 ML IVPB SCH (09:53)
[2025-03-11] MEDS ORDERED: Iopamidol-370 76% 500 ML MDV (1 ML CHARGE) ONE (13:50)
[2025-03-11] MEDS: Acetaminophen 325 MG TAB PO PRN (17:21)
[2025-03-11] MEDS: Gabapentin 100 MG CAP PO SCH (20:05)
[2025-03-11] MEDS: Apixaban 5 MG TAB PO SCH (20:06)
[2025-03-12 10:30] LABS: #Basophils 0.05 10x3/uL (0.0-0.2); #Eosinophils Less than 0.03 10x3/uL (0.0-0.7); #Monocytes 1.64 10x3/uL (0.11-0.59); #Neutrophils 15.76 10x3/uL (1.40-6.50); %Basophils 0.2 % (0.0-1.0); %Eosinophils 0.0 % (0.0-10.0); %Lymphocytes 19.0 % (21.0-51.0); %Monocytes 7.5 % (0.0-10.0); %Neutrophils 72.7 % (42.0-75.0); Hematocrit 49.8 % (42.0-52.0); Hemoglobin 16.1 g/dL (14.0-18.0); Mean Corpuscular Hemoglobin 30.7 pg (27.0-31.0); Mean Corpuscular Volume 94.9 fL (78.0-98.0); Platelet Count 274 10x3/uL (130-400); Red Blood Cell (RBC) Count 5.25 mill/uL (4.70-6.10); White Blood Cell (WBC) Count 21.73 10x3/uL (4.8-10.8)
[2025-03-12 11:09] LABS: Anion Gap 17 mmol/L (10-20); BUN (Urea Nitrogen) 19 mg/dL (8.4-25.7); Calc. Creatinine Clearance 78 mL/min (70-130); Calcium 9.0 mg/dL (7.8-10.44); Carbon Dioxide 24 mmol/L (23-31); Chloride 103 mmol/L (98-107); Glucose 131 mg/dL (83-110); Potassium 4.0 mmol/L (3.5-5.1); Sodium 140 mmol/L (136-145)
[2025-03-12 18:30] LABS: Legionella Urinary Ag Negative (Negative); Strep pneumo Urine Ag NEGATIVE (NEGATIVE)
[2025-03-13] MEDS: VANCOMYCIN 2 GRAM/400 ML BAG 2 GM in Premix 1 BAG IVPB SCH (15:33)
[2025-03-14 04:29] LABS: Hematocrit 48.0 % (42.0-52.0); Hemoglobin 16.3 g/dL (14.0-18.0); Mean Corpuscular Hemoglobin 31.3 pg (27.0-31.0); Mean Corpuscular Volume 92.3 fL (78.0-98.0); Platelet Count 263 10x3/uL (130-400); Red Blood Cell (RBC) Count 5.20 mill/uL (4.70-6.10); White Blood Cell (WBC) Count 18.19 10x3/uL (4.8-10.8)
[2025-03-14 04:40] LABS: Vancomycin, Random 11.6 ug/mL (See Comment)
[2025-03-14 04:43] LABS: ALT (SGPT) 14 U/L (Less than 45); AST (SGOT) 24 U/L (11-34); Albumin 3.3 g/dL (3.1-4.5); Alkaline Phosphatase 98 U/L (40-110); Anion Gap 13 mmol/L (10-20); BUN (Urea Nitrogen) 15 mg/dL (8.4-25.7); Bilirubin, Total 1.1 mg/dL (0.3-1.2); Calc. Creatinine Clearance 98 mL/min (70-130); Calcium 8.6 mg/dL (7.8-10.44); Carbon Dioxide 24 mmol/L (23-31); Chloride 101 mmol/L (98-107); Globulin 4.5 g/dL (2.4-3.5); Glucose 96 mg/dL (83-110); Potassium 4.0 mmol/L (3.5-5.1); Sodium 134 mmol/L (136-145)
[2025-03-14 04:53] LABS: Platelet Adequacy Comment Platelets Normal; Polychromasia SLIGHT = 2-3 cells HPF (0-2)
[2025-03-14] MEDS: Vancomycin HCl 750 MG in Sodium Chloride 0.9% 250 ML 250 ML IVPB SCH (05:01)
[2025-03-14] MEDS: Vancomycin 1 GM in Premix 1 BAG IVPB SCH (21:36)
[2025-03-15 03:55] LABS: Hematocrit 48.1 % (42.0-52.0); Hemoglobin 16.2 g/dL (14.0-18.0); Mean Corpuscular Hemoglobin 31.0 pg (27.0-31.0); Mean Corpuscular Volume 92.1 fL (78.0-98.0); Platelet Count 277 10x3/uL (130-400); Red Blood Cell (RBC) Count 5.22 mill/uL (4.70-6.10); White Blood Cell (WBC) Count 16.99 10x3/uL (4.8-10.8)
[2025-03-15 03:57] LABS: Anion Gap 13 mmol/L (10-20); BUN (Urea Nitrogen) 17 mg/dL (8.4-25.7); Calc. Creatinine Clearance 91 mL/min (70-130); Calcium 8.6 mg/dL (7.8-10.44); Carbon Dioxide 24 mmol/L (23-31); Chloride 103 mmol/L (98-107); Glucose 94 mg/dL (83-110); Potassium 3.6 mmol/L (3.5-5.1); Sodium 136 mmol/L (136-145)
[2025-03-15 04:32] LABS: Platelet Adequacy Comment Platelets Normal; RBC Morphology Within Normal Limits; Smudge Cells 17.3 %
[2025-03-15] MEDS: cefTRIAXone (ROCEPHIN) 1 GM VIAL ONE (10:54)
[2025-03-16 04:33] LABS: #Basophils 0.13 10x3/uL (0.0-0.2); #Eosinophils 1.05 10x3/uL (0.0-0.7); #Monocytes 1.34 10x3/uL (0.11-0.59); #Neutrophils 6.87 10x3/uL (1.40-6.50); %Basophils 0.9 % (0.0-1.0); %Eosinophils 7.5 % (0.0-10.0); %Lymphocytes 31.3 % (21.0-51.0); %Monocytes 9.5 % (0.0-10.0); %Neutrophils 49.0 % (42.0-75.0); Hematocrit 47.6 % (42.0-52.0); Hemoglobin 16.1 g/dL (14.0-18.0); Mean Corpuscular Hemoglobin 31.2 pg (27.0-31.0); Mean Corpuscular Volume 92.2 fL (78.0-98.0); Platelet Count 279 10x3/uL (130-400); Red Blood Cell (RBC) Count 5.16 mill/uL (4.70-6.10); White Blood Cell (WBC) Count 14.04 10x3/uL (4.8-10.8)
[2025-03-16 04:40] LABS: Calc. Creatinine Clearance 100.0 mL/min (70-130)
[2025-03-16 04:41] LABS: Vancomycin, Random 15.4 ug/mL (See Comment)
[2025-03-17 04:44] LABS: Hematocrit 46.2 % (42.0-52.0); Hemoglobin 15.4 g/dL (14.0-18.0); Mean Corpuscular Hemoglobin 30.9 pg (27.0-31.0); Mean Corpuscular Volume 92.8 fL (78.0-98.0); Platelet Count 274 10x3/uL (130-400); Red Blood Cell (RBC) Count 4.98 mill/uL (4.70-6.10); White Blood Cell (WBC) Count 15.58 10x3/uL (4.8-10.8)
[2025-03-17 05:27] LABS: Platelet Adequacy Comment Platelets Normal; RBC Morphology Within Normal Limits; Smudge Cells 17.8 %
[2025-03-17 10:55] VITALS: BMI 28.6
[2025-03-18 04:53] LABS: #Basophils 0.13 10x3/uL (0.0-0.2); #Eosinophils 0.86 10x3/uL (0.0-0.7); #Monocytes 1.48 10x3/uL (0.11-0.59); #Neutrophils 7.31 10x3/uL (1.40-6.50); %Basophils 0.9 % (0.0-1.0); %Eosinophils 6.2 % (0.0-10.0); %Lymphocytes 27.8 % (21.0-51.0); %Monocytes 10.7 % (0.0-10.0); %Neutrophils 52.9 % (42.0-75.0); Hematocrit 47.1 % (42.0-52.0); Hemoglobin 15.9 g/dL (14.0-18.0); Mean Corpuscular Hemoglobin 31.2 pg (27.0-31.0); Mean Corpuscular Volume 92.4 fL (78.0-98.0); Platelet Count 269 10x3/uL (130-400); Red Blood Cell (RBC) Count 5.10 mill/uL (4.70-6.10); White Blood Cell (WBC) Count 13.83 10x3/uL (4.8-10.8)
[2025-03-18 05:03] LABS: Vancomycin, Random 16.3 ug/mL (See Comment)
[2025-03-18 05:09] LABS: Calc. Creatinine Clearance 102.0 mL/min (70-130)
[2025-03-18 12:58] VITALS: BP 111/73; TEMP 97.6
[2025-03-18 13:57] LABS: ALT (SGPT) 27 U/L (Less than 45); AST (SGOT) 23 U/L (11-34); Albumin 3.5 g/dL (3.1-4.5); Alkaline Phosphatase 106 U/L (40-110); Anion Gap 12 mmol/L (10-20); BUN (Urea Nitrogen) 15 mg/dL (8.4-25.7); Bilirubin, Total 0.5 mg/dL (0.3-1.2); Calc. Creatinine Clearance 108 mL/min (70-130); Calcium 8.5 mg/dL (7.8-10.44); Carbon Dioxide 24 mmol/L (23-31); Chloride 103 mmol/L (98-107); Globulin 4.6 g/dL (2.4-3.5); Glucose 132 mg/dL (83-110); Magnesium 2.0 mg/dL (1.6-2.6); Potassium 3.8 mmol/L (3.5-5.1); Sodium 135 mmol/L (136-145)
[2025-03-18] MEDS ORDERED: Apixaban 2.5 MG TAB PO SCH (21:00)
== END 2025-03-18 16:50 | disposition home or self-care (01) | DRG 199 ==
LOC: ERS 23:12 → PCU 03-11 01:20
PROVIDERS: ADMIT Student in an Organized Health Care Education/Training Program; ATTEND Student in an Organized Health Care Education/Training Program
PROC: 0W9B30Z Drainage of Left Pleural Cavity with Drainage Device, Percutaneous Approach (ICD-10-PCS; principal; 2025-03-11)
PROC: 3E03329 Introduction of Other Anti-infective into Peripheral Vein, Percutaneous Approach (ICD-10-PCS; principal; 2025-03-11)
DX: J93.83 Other pneumothorax (principal); J18.9 Pneumonia, unspecified organism; J96.21 Acute and chronic respiratory failure with hypoxia; E87.20 Acidosis, unspecified; R78.81 Bacteremia; J44.0 Chronic obstructive pulmonary disease with (acute) lower respiratory infection; J43.9 Emphysema, unspecified; B95.7 Other staphylococcus as the cause of diseases classified elsewhere; Z79.01 Long term (current) use of anticoagulants; Z79.899 Other long term (current) drug therapy; E78.5 Hyperlipidemia, unspecified; J84.10 Pulmonary fibrosis, unspecified; R04.0 Epistaxis; Z86.718 Personal history of other venous thrombosis and embolism; Z86.711 Personal history of pulmonary embolism
CPT/HCPCS: 32551; 36415; 36600; 71045; 71275; 80048; 80053; 80202; 82565; 82805; 83605; 83735; 83880; 84145; 84484; 85025; 86141; 87040; 87070; 87077; 87149; 87186; 87205; 87449; 87899; 93005; 94640; 94660; 96365; 96374; 96375; 99152; J0696; J1100; J2270; J2272; J2405; J3373; J3375; J3475; J3490; J7050; Q9967